=== PATIENT | male | born 1945 | race Caucasian/White ===

== ENCOUNTER 2024-06-17 07:07 | Outpatient (CLI) | payer MEDICARE, SELFPAY ==
--- NOTE | 2024-06-17 | ECG_ITS ---
Test Date: 2024-06-17 08:52:08 Measurements Intervals Thermal Rate: 65 P: 0 SD: 0 QRS: -64 QRSD: 168 T: 97 QT: 448 QTc: 469 Interpretive Statements ELECTRONIC VENTRICULAR PACEMAKER No previous ECG available for comparison Electronically Signed On 06-17-2024 12:59:34 CDT by Srinivasan Black M.D.
--- OUTSIDE RECORDS SUMMARY | 2024-06-17 07:15 | XMS_ITS | Encounter Summary ---
Author Organization [facility] Address [address] [place] [address] Care Team Providers Care Carbon Furnace Operator Name Role Phone Unavailable Primary Care Provider Unavailabl e Encounter Details Date Type Department Care Team (Late st Contact Info) Description 11/22/2017 Lab Requisition [facility] D[facility] Lab [address] [facility], [place] [phone] Erica Gordon MD [address] [facility] [address] [place] [address] Social History Tobacco Use Types Packs/Day Years Used Date Smoking Tobacco: Never Assessed Sex and Gender Information Value Date Recorded Sex Assigned at Not on file Gender Identity Not on file Sexual Orientation Not on file documented as of this encounter Plan of Treatment Not on file documented as of this encounter Procedures Procedure Name Priority Date/Time Associated Diagnosis Comments DERMATOPATH TECHNICAL REPORT Routine 11/21/2017 12:00 AM CDT documented in this encounter Results * DERMATOPATH TECHNICAL REPORT (11/21/2017 12:00 AM CDT) Case Report Dermatopathology Report Case: [id number] Authorizing Provider: Erica Gordon MD Collected: 11/21/2017 12:00 AM Pathologist: Valentina Emery MD Received: 11/22/2017 06:29 AM Specimen: Skin, left nasal ala 8 12:18 PM CDT DERMATOPATHOLOGY LABORATORY Clinical History R/O BCC. Non-healing. Check margins. 8 12:18 PM CDT DERMATOPATHOLOGY LABORATORY Gross Description Specimen A: Received is one formalin filled container labeled with the patient's name and designated left nasal ala. The specimen consists of a shave measuring [id number]. The margin is inked green. Jar 0. [facility] Dermatopathology Laboratory performed the technical component only. 8 12:18 PM CDT DERMATOPATHOLOGY LABORATORY Embedded Images 12:18 PM CDT DERMATOPATHOLOGY LABORATORY DISCLAIMER An external and internal positive and negative controls are appropriate for the histochemical, immunohistochemical and immunofluorescence stain(s) in this case (if any), except where stated explicitly. The performance characteristics of the stain(s) cited in this report were developed and its performance characteristic determined by the Dermatopathology Laboratory at [facility]. These tests need not be, and therefore are not, approved by the [place] Food and Drug Administration. The tests are used for clinical purposes. 8 12:18 PM T DERMATOPATHOLOGY LABORATORY Pathology/Cytolog y TISSUE SPECIMEN FROM SKIN / Unknown 11/21/2017 11/22/2017 6:29 AM CDT Erica Gordon MD LAB - PATHOLOGY/CYT OLOGY ORDERABLES DERMATOPATHOLOGY LABORATORY [facility] - Department of Dermatology [address] [facility] [place] [address], [facility] [phone] documented in this encounter Visit Diagnoses Not on filedocumented in this encounter
--- OUTSIDE RECORDS SUMMARY | 2024-06-17 07:15 | XMS_ITS | Clinical Summary ---
Author Organization [facility] Address [address] [place] [address] Care Team Providers Care Service Director Name Role Phone Pelon Montana MD Primary Care Provider [phone] Allergies Active Allergy Reactions Criticality Noted Date Comments Iodine Anaphylaxis High 02/20/2023 Shellfish Allergy Anaphylaxis High 02/20/2023 Medications fluticasone propionate (FLONASE) 50 MCG/ACT nasal spray SHAKE LIQUID AND USE 1 SPRAY IN EACH NOSTRIL EVERY DAY 01/24/2023 Active rosuvastatin (CRESTOR) 20 MG tablet Take 1 tablet (20 mg total) by mouth nightly at bedtime. Active XARELTO 20 MG Tab tablet TAKE 1 TABLET BY MOUTH DAILY WITH THE EVENING MEAL 12/21/2022 Active loteprednol (LOTEMAX) 0.5 % ophthalmic suspension Place 2 drops into the left eye daily. 10/16/2023 Active acyclovir (ZOVIRAX) 400 MG tablet Take 1 tablet (400 mg total) by mouth daily. 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 02/20/2023 Rhinitis 02/20/2023 Herpes simplex 02/20/2023 Chronic bilateral low back pain without sciatica 02/20/2023 Encounters Date Type Department Care Team Description 05/05/2024 9:40 AM PHLEBOTOMIST Office Visit [facility] Family & Internal Medicine [address] [phone] Pelon Montana MD Follow Up; Atrial Fibrillation; Benign Prostatic Hypertrophy; Hyperlipidemia 05/05/2024 Travel 03/20/2024 Scan [facility] INFO SRVCS Scanned, [facility] from Last 3 Months Immunizations Name Administration Dates Next Due Arexvy Respiratory Syncytial Virus (RSV, adjuvanted) 0.5 mL, PF 02/20/2023 Fluad influenza vaccine, Xavi drivalent (aIIV4), Inactivated, adjuvanted, preservative free, 0.5 mL,IM use 12/18/2019 Fluzone High Dose (IIV, triv alent, 0.5mL) 12/26/2023 Influenza (Generic) 12/31/2014 Influenza Adult (Generic) 01/08/2023,,01/27/2021,2018,01/07/2018,01/10/2017,01/04/2016 Pneumococcal (Pneumovax 23) 04/06/2013, 4 Pneumococcal (Prevnar 13) 01/11/2015 Pneumococcal (Prevnar 20) 01/19/2022 Tdap (Generic) 12/26/2015 Tetanus Toxoid Inj 03/15/2014 Family History Medical History Relation Comments Colon Cancer Brother Liver cancer Father Ulcerative Colitis Father Valve Disease Father Stroke Maternal Aunt 1 Cancer Maternal Aunt 2 Hypertension Mother Stroke Mother Hypertension Sister Relation Status Comments Brother Father Maternal Aunt 1 Maternal Aunt 2 Mother Sister Alive Son Alive Social History Tobacco Use Types Packs/Day Years Used Date Smoking Tobacco: Never Smokeless Tobacco: Never Tobacco Cessation:Counseling Given: Not Answered Alcohol Use Standard Drinks/Week Comments Not Currently 0 (1 standard drink = 0.6 oz pur e alcohol) PHQ-2 Answer Date Recorded Patient Health Questionnaire-2 Score 0 05/05/2024 Sex and Gender Information Value Date Recorded Sex Assigned at Male 05/05/2024 10:21 AM PHLEBOTOMIST Legal Sex Male 1:59 PM CDT Gender Identity Not on file Sexual Orientation Not on file Last Filed Vital Signs Vital Sign Reading Time Taken Comments Blood Pressure 132/70 05/05/2024 10:21 AM PHLEBOTOMIST Pulse 67 05/05/2024 10:21 AM PHLEBOTOMIST Temperature 36.4 C (97.5 F) 05/05/2024 10:21 AM PHLEBOTOMIST Respiratory Rate 16 05/05/2024 10:2 1 AM PHLEBOTOMIST Oxygen Saturation 97% 05/05/2024 10: 21 AM PHLEBOTOMIST Inhaled Oxygen Concentration - - Weight 101.5 kg (223 lb 11.2 oz) 2024 10:21 AM PHLEBOTOMIST Height 185.4 cm (6' 1 ) 05/05/2024 10:2 1 AM PHLEBOTOMIST Body Mass Index 29.51 05/05/2024 10:21 AM PHLEBOTOMIST Plan of Treatment Upcoming Encounters Date Type Department Care Team (Late st Contact Info) Description 06/17/2024 1:20 PM CDT Laboratory Only [facility] Family & Internal [address] [phone] Pelon Montana MD [address] [place] [address] 08/31/2024 7:20 AM CDT Laboratory Only [facility] Internal [address] [phone] Pelon Montana MD [address] [place] [address] 09/08/2024 10:00 AM CDT Office Visit [facility] Family & Internal [address] [phone] Pelon Montana MD [address] [place] [address] Health Maintenance Due Date Last Done Comments Hepatitis C 1963 Zoster Vaccines (1 of 2) 1996 Annual Medicare Wellness Visit 09/19/2011 COVID-19 Vaccine ( season) 2024 01/17/2024, 01/31/2023, 12/06/2021, Additional history exists DTaP, Tdap and Td Vaccines (2 - Td or Tdap) 12/25/2025 12/26/2015, 03/15/2014 Pneumococcal Vaccine: 65+ Years Completed 01/19/2022, 01/11/2015, 04/06/2013, Additional history exists RSV Immunization or 60+ Years Completed 02/20/2023 Influenza Adult Completed 12/26/2023, 12/23, 01/07/2022, Additional history exists PHQ-2 (Physician [place]) Completed 05/05/2024 Meningococcal B Vaccine Aged Out No l onger eligible based on patient's age to complete this topic Meningococcal Vaccine Aged Out No olga marli eligible based on patient's age to complete this topic RSV Immunizations Under 20 Months Aged Out No longer eligible based on patient's age to complete this topic Insurance [place], [place] [id number] [place] [address] GROUP MEDICARE Care Teams Service Director Relationship Specialty Start Date End Date Pelon Montana MD [address] [place] [phone] PCP - General INTERNAL MEDICINE 02/20/23
--- OUTSIDE RECORDS SUMMARY | 2024-06-17 07:15 | XMS_ITS | Continuity of Care Document ---
Author Organization [facility] Address [address] [facility] [address] [place] [address] Phone Care Team Providers Care Linux Programmer Name Role Phone Skinny Blevins MD Unavailable Unavailable Procedures Procedure Date Office/outpatient visit,[facility] 2005 Advance Directives Directive Yes / No Effective Date File Name No Information Encounters Encounter Description Practice Location Reason(s) For Visit Diagnoses Date Provider Providers Copied on Encounter Office/outpat ient visit,[facility], [address], [id number], tel:[phone] [facility] No Information [address] [facility] [address], [place], [place], [id number] , . tel: [phone] Family History Family Member Type Diagnosis Age At Onset No Information Payers Payer name Insurance type Covered libertarian ID Authoriza tion(s) [facility] [id number] Social History Type Description Quantity Date Captured Comments Sex Male Smoking Status No Information Chief Complaint And Reason For Visit No Information Reason For Referral Reason For Referral No Information History Of Present Illness Encounter Date Complaint History Of Prese nt Illness No Information Functional Status Date Functional Assessmen t No Information Instructions Date Instruction Additional Infor mation No Information Assessments Type Assessment Date No Information Patient Care Teams Name Effective Dates (start - stop) Status Members No Information
--- OUTSIDE RECORDS SUMMARY | 2024-06-17 07:15 | XMS_ITS | Encounter Summary ---
Author Organization [facility] Address [address] [facility] [place] [address] Care Team Providers Care Veterinary Poultry Inspector Name Role Phone Unavailable Primary Care Provider Unavailabl e Encounter Details Date Type Department Care Team (Late st Contact Info) Description 10/29/2019 Lab Requisition [facility] DermPath Lab [address] [facility] [place] [phone] Romeo Orr MD [address] [place] [address] Social History Tobacco Use Types Packs/Day Years Used Date Smoking Tobacco: Never Assessed Sex and Gender Information Value Date Recorded Sex Assigned at Not on file Gender Identity Not on file Sexual Orientation Not on file documented as of this encounter Plan of Treatment Not on file documented as of this encounter Procedures Procedure Name Priority Date/Time Associated Diagnosis Comments DERMATOPATHOLOGY Routine 10/28/2019 12:0 0 AM CDT documented in this encounter Results * DERMATOPATHOLOGY (10/28/2019 12:00 AM CDT) Case Report Dermatopathology Report Case: [id number] Authorizing Provider: Romeo Orr MD Collected: 10/28/2019 12:00 AM Ordering Location: [facility] DermPath Lab Received: 10/29/2019 12:23 PM Pathologist: Papito Martinez MD Specimens: A) - Skin, right styloid process B) - Skin, left ext FA C) - Skin, left distal ulnar FA 0 2:41 PM CDT DERMATOPATHOLOGY LABORATORY Amended Report General Clerical Error 0 2:41 PM CDT DERMATOPATHOLOGY LABORATORY Final Diagnosis Specimen A. SKIN, right styloid process: SQUAMOUS CELL CARCINOMA, WELL DIFFERENTIATED (C44.42) Specimen B. 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 C: R/O BCC, SCC. 0 2:41 PM T DERMATOPATHOLOGY LABORATORY Gross Description Specimen A: Received is one formalin filled container labeled with the patient's name and designated right styloid process. The specimen consists of a shave biopsy measuring [id number]. Jar 0. Specimen B: Received is one formalin filled container labeled with the patient's name and designated left ext FA. The specimen consists of a shave biopsy measuring [id number]. Jar 0. Specimen C: Received is one formalin filled container labeled with the patient's name and designated left distal ulnar FA. The specimen consists of a shave biopsy measuring [id number]. Jar 0. 0 2:41 PM T DERMATOPATHOLOGY LABORATORY Microscopic Description Specimen A. SKIN, right styloid process: Arising in the epidermis and extending into the dermis there are irregularly shaped aggregates of keratinocytes showing evidence of premature cornification. Specimen B. SKIN, left ext FA: There is a dome-shaped portion of skin with psoriasiform epidermal hyperplasia, compact hyperkeratosis, and fibrosis of the papillary dermis associated with a superficial perivascular lymphohistiocytic infiltrate. Additional deeper sections were obtained and reviewed. Specimen C. SKIN, left distal ulnar FA: There is a cup-shaped lesion with central hyperkeratosis with elements of parakeratosis. The epithelial cells making up the bro of the cup show abundant eosinophilic cytoplasm. There is immaturity of the keratinocytes in the outermost layers of this epithelium, forming nests which are highlighted on a pancytokeratin. In the dermis there is marked fibroplasia with a mixed inflammatory infiltrate containing eosinophils. 0 2:41 PM T DERMATOPATHOLOGY LABORATORY Disclaimer An external and internal positive and negative controls are appropriate for the histochemical, immunohistochemical and immunofluorescence stain(s) in this case (if any), except where stated explicitly. The performance characteristics of the stain(s) cited in this report were developed and its performance characteristic determined by the Dermatopathology Laboratory at [facility], directed by Dr. Jj Martinez. These tests need not be, and therefore are not, approved by the [place] Food and Drug Administration. The tests are used for clinical purposes. Billing Codes Specimen Charges Stain Charges 23768 51508 50390 1 1 1 95531 1 0 2:41 PM CDT DERMATOPATHOLOGY LABORATORY Embedded Images 0 2:41 PM CDT DERMATOPATHOLOGY LABORATORY Pathology/Cytology TISSUE SPECIMEN FROM SKIN / Unknown 10/28/2019 10/29/2019 12:23 PM CDT Miscellaneous samples (specimen) TISSUE SPECIMEN FROM SKIN / Unknown 10/28/2019 10/29/2019 12:23 PM CDT Miscellaneous samples (specimen) TISSUE SPECIMEN FROM SKIN / Unknown 10/28/2019 10/29/2019 12:23 PM CDT Romeo Orr MD LAB - PATHOLOGY/CYTO LOGY ORDERABLES DERMATOPATHOLOGY LABORATORY [facility] - Department of Dermatology [facility]/[address] [phone] documented in this encounter Visit Diagnoses Not on filedocumented in this encounter
--- OUTSIDE RECORDS SUMMARY | 2024-06-17 07:15 | XMS_ITS | Referral Summary ---
Author Organization [facility] Address [address] [place] [address] Care Team Providers Care Thin Film Technician Name Role Phone Pelon Montana MD Primary Care Provider [phone] Encounters Date Type Department Care Team Description 04/27/2024 3:20 PM [facility] Telemedicine [place] for Advanced Medicine ([facility]) - [facility] Urology [address] [place] [address] Advanced Medicine 11th [place] [address] [place] [address] Mery Kearney MD Elevated PSA (Primary Dx); Prostate cancer (HCC) 04/06/2024 9:40 AM HOST/HOSTESS HEAD Office Visit [facility] Surgery [facility] [facility] [address] [place] [phone] Elevated PSA (Primary Dx) from Last 3 Months Allergies Active Allergy Reactions Criticality Noted Date Comments Adhesive Rash Medium Iodine Anaphylaxis High Morphine Headache Low Shellfish Containing Products Anaphylaxis High Medications HYDROcodone-aceta minophen (NORCO) 10-325 mg per tabletIndications :Pain TAKE 1 TO 2 TABLETS EVERY 4 TO 6 HOURS NEEDED FOR PAIN. 7 Active XARELTO 20 mg tablet TK 1 T PO D WITH THE EVENING MEAL 3 8 Active rosuvastatin (CRESTOR) 20 mg tabletIndications :hyperlipidemia Take 1 tablet (20 mg total) by mouth nightly Active valACYclovir (VALTREX) 500 mg tablet Take 1 tablet (500 mg total) by mouth 2 (two) times a day Active mirabegron ER (MYRBETRIQ) 25 mg tablet extended release 24 hrIndications:Dustin dder Hyperactivity Take 1 tablet (25 mg total) by mouth daily 30 tablet 11 3 Active Additional Information Patient not taking.Reported on 06/27/2023 vit C,Y-Kz-cqnza-lute in-zeaxan 250-90-40-1 mg capsule Take 1 capsule by mouth daily Active trospium XR (SANCTURA XR) 60 mg capsule,extended release 24hr Take 1 capsule (60 mg total) by mouth daily before breakfast 90 capsule 3 4 Active Active Problems Problem Noted Date Diagnosed Date Paroxysmal atrial fibrillation 06/28/2023 Elevated PSA 03/08/2023 Arthralgia of hip 06/20/2016 Arthralgia of shoulder 01/17/2015 Social History Tobacco Use Types Packs/Day Years Used Date Smoking Tobacco: Never Smokeless Tobacco: Never Tobacco Cessation:Counseling Given: Not Answered Alcohol Use Standard Drinks/Week Comments Never 0 (1 standard drink = 0.6 oz pur e alcohol) AUDIT-C Answer Date Recorded Q1: How often do you have a drink containing alc ohol? Never 04/16/2023 Average Number of Drinks Not on file 024 Q3: How often do you have si x or more drinks on one occasion? Never 04/16/2023 Personal Safety Answer Date Recorded Have you ever been in or are you currently in a harmful physical or emotional relationship or is someone making you feel afraid or unsafe? Denies 04/16/2023 Sex and Gender Information Value Date Recorded Sex Assigned at Not on file Legal Sex Male 1:27 PM HOST/HOSTESS HEAD Gender Identity Not on file Sexual Orientation Not on file Occupation Industry Job Start Date Job End Date [employer] Not on file Not on file Not on filippo e Last Filed Vital Signs Vital Sign Reading Time Taken Comments Blood Pressure 123/87 04/16/2023 9:35 AM HOST/HOSTESS HEAD Pulse 61 04/16/2023 9:35 AM HOST/HOSTESS HEAD Temperature 35.9 C (96.7 F) 04/16/2023 9:05 AM HOST/HOSTESS HEAD Respiratory Rate 18 04/16/2023 9:35 AM HOST/HOSTESS HEAD Oxygen Saturation 96% 04/16/2023 9:35 AM HOST/HOSTESS HEAD Inhaled Oxygen Concentration - - Weight 98.9 kg (218 lb) 04/01/2023 10:00 AM HOST/HOSTESS HEAD Height 185.4 cm (6' 1 ) 04/01/2023 10:00 AM HOST/HOSTESS HEAD Body Mass Index 28.76 04/01/2023 10:00 AM HOST/HOSTESS HEAD Plan of Treatment Not on file Medical Devices Implanted Type Area Senior Pharmacy Technician Device Identifier Shelf Expiration Date Model / Serial / Lot Ji Ra Lead [id number]/ 31/2008 Implanted: (Quantity not on file) Lead [employer] [id number] / / Ji Rv Lead [id number]/ 31/2008 Implanted: (Quantity not on file) Lead [employer] [id number] / / Medtronic Pm [id number] Implanted:Qty : 1 on 07/25/2015 Pacemaker Chest Wall [employer] Cardiac Rhythm Mgmt [id number] / / Insurance UHC MEDICARE ADVANTAGE UHC MEDICARE ADVANTAGE UHC MEDICARE ADVANTAGE Advance Directives For more information, please contact: [phone] Documents on File Type Date Recorded Patient Traffic Police Officer Expl anation Power of Underwriting Operations Manager 04/16/2023 5:38 AM Care Teams Thin Film Technician Relationship Specialty Start Date End Date Pelon Montana MD [address] [place] [id number] PCP - General Internal Medicine 04/01/23
--- OUTSIDE RECORDS SUMMARY | 2024-06-17 07:15 | XMS_ITS | CONTINUITY OF CARE DOCUMENT ---
Author Name kiran, kiran Address Unknown Organization [facility] Address [address] [place] [address] Phone [phone] Care Team Providers Care Truer Pinion And Wheel Name Role Phone Carlos HILTON, Poly Unavailable [phone] GUERITA HILTON, SITA Unavailable GUERITA HILTON, SITA Unavailable [phone] PROBLEMS Condition Status Date Provider Notes Tricuspid regurgitation, mild active Nella Lagos S/P dc pm gen change - Medtronic active Briana Pandyaara PACEMAKER, PERMANENT-03/01 S T. JOSELINE DC,s/p battery changeto medtronic 08/07 completed - Poly Rahman MD HTN-02/03 ECHO AFIB EF 55 completed - Poly vega MD CAD-05/01 NUC NEG completed - Poly Rahman MD CAD 20% L main , mild ectasi a of rca 06/2021 active Poly Rahman MD Hyperlipidemia- active Poly Rhaman MD Mitral regurgitation, mild--echo ef NL, 05/2021 active Poly Rahman MD Obesity active Poly Rahman MD Atrial fibrillation completed - Poyl Andres Lower extremity edema active Poly Andres S/P dc pm gen change - Medtronic completed - Poly Rahman MD Family History of Hypertension: completed - To yasmeen Rahman MD Family History of CVA or Stroke: completed - Poly Rahman MD HTN-06/29 SARAHI CARDIOVERSION completed - Poly Rahman MD Chronic AFIB INTOLERANT OF SOTALOL, on Xarelto active Poly Rahman MD ENCOUNTERS Date Type Provider Location Encounter Diag nosis - In-person encounter Office Visit Poly Rahman MD [facility] - In-person encounter Office Visit Poly Rahman MD [facility] Hyperlipidemia-Atria l fibrillationLower extremity edema - In-person encounter Office Visit Poly Rahman MD [facility] CAD 20% L main , mil d ectasia of rca 06/2021Mitral regurgitation, mild--echo ef NL, 05/2021 - In-person encounter Office Visit Poly Rahman MD [facility] - In-person encounter Office Visit Poly Rahman MD [facility] - In-person encounter Office Visit Poly Rahman MD [facility] CAD 20% L main , mil d ectasia of rca 06/2021 - In-person encounter Office Visit Poly Rahman MD [facility] - In-person encounter Office Visit Poly Rahman MD [facility] Office CAD 20% L main , mil d ectasia of rca 06/2021Hyperlipidemia-Mi tral regurgitation, mild--echo ef NL, 05/2021 - In-person encounter Office Visit Poly Rahman MD [facility] - In-person encounter Office Visit Poly Rahman MD [facility] - In-person encounter Office Visit Poly Rahman MD [facility] PACEMAKER, PERMANENT-03/01 [facility]. JOSELINE DC,s/p battery changeto medtronic 5/16 - In-person encounter Office Visit Poly Rahman MD [facility] Mitral regurgitation , mild--echo ef NL, 2Obesity - In-person encounter Office Visit Poly Rahman MD [facility] Chronic AFIB INTOLER ANT OF SOTALOL, on Xarelto - In-person encounter Office Visit Poly Rahman MD [facility] Chronic AFIB INTOLER ANT OF SOTALOL, on Xarelto - In-person encounter Office Visit Poly Rahman MD [facility] Office CAD 20% L main , mil d ectasia of rca 06/2021Hyperlipidemia- - In-person encounter Office Visit Poly Rahman MD [facility] - In-person encounter Office Visit Poly Rahman MD [facility] - In-person encounter Office Visit Poly Rahman MD [facility] PACEMAKER, PERMANENT-03/01 ST. JOSELINE DC,s/p battery changeto medtronic 08/07HTN-02/03 ECHO AFIB EF 55HTN-06/29 SARAHI CARDIOVERSIONCAD-05/01 NUC NEGS/P dc pm gen change - Medtronic - In-person encounter Office Visit Poly Rahman MD [facility] PACEMAKER, PERMANENT-03/01 ST. JOSELINE DC,s/p battery changeto medtronic 08/07 - In-person encounter Office Visit Poly Rahman MD [facility] Family History of CV A or Stroke:Family History of Hypertension: - In-person encounter Office Visit Poly Rahman MD [facility] - In-person encounter Office Visit Poly Rahman MD [facility] - In-person encounter Office Visit Poly Rahman MD [facility] - In-person encounter Office Visit Poly Rahman MD [facility] - In-person encounter Office Visit Poly Rahman MD [facility] - In-person encounter Office Visit Poly Rahman MD [facility] - In-person encounter Office Visit Poly Rahman MD [facility] - In-person encounter Office Visit Poly Rahman MD [facility] Chronic AFIB INTOLER ANT OF SOTALOL, on Xarelto - In-person encounter Office Visit Home Rodriguez MD [facility] - In-person encounter Office Visit Poly Rahman MD [facility] Chronic AFIB INTOLER ANT OF SOTALOL, on Xarelto VITAL SIGNS Date Observation Value Provider Body Mass Index (Ratio) 31.24 kg/m2 Ashish Rahman MD blood pressure, diastolic 70 mm[Hg] Ri az [facility] blood pressure, systolic 110 mm[Hg] Marguerite hansa [facility] weight E&M 219 [lb_av] [facility] oxygen saturation, oximetry 98 % [facility] pulse rate 89 /min [facility] Body Mass Index (Ratio) 30.81 kg/m2 Ashish Rahman MD blood pressure, diastolic 88 mm[Hg] Li nkLogic blood pressure, systolic 145 mm[Hg] Tamera kLogic blood pressure, cuff size regular Ja rret blood pressure, diastolic 86 mm[Hg] Ja rret blood pressure, systolic 128 mm[Hg] Jar ret pulse rate 64 /min Arnaldo y oxygen saturation, oximetry 98 % Arnaldo respiratory rate E&M 14 /min Arnaldo weight E&M 216 [lb_av] Arnaldo Padilla y height E&M 70.2 [in_i] Arnaldo Padilla y Body Mass Index (Ratio) 30.39 kg/m2 Ashish Rahman MD weight E&M 213 [lb_av] Shanthi [place] blood pressure, cuff size regular Fa [facility] blood pressure, diastolic 79 mm[Hg] [facility] blood pressure, systolic 134 mm[Hg] [facility], [facility] 99 % [facility] respiratory rate E&M 15 /min Shanthi Cobos [facility] pulse rate 76 /min [facility] height E&M 70.2 [in_i] [facility] Body Mass Index (Ratio) 30.67 kg/m2 Ashish Rahman MD blood pressure, diastolic -1 mm[Hg] Li nkLogic blood pressure, systolic 148 mm[Hg] Tamera kLoggavin blood pressure, diastolic 88 mm[Hg] St acleyla Du blood pressure, systolic 148 mm[Hg] Sta charis Du oxygen saturation, oximetry 99 % Juani Florian pulse rate 75 /min Juani Florian respiratory rate E&M 18 /min Juani D yara weight E&M 215 [lb_av] Juani Florian height E&M 70.2 [in_i] Juani Florian Body Mass Index (Ratio) 32.21 kg/m2 Ashish Rahman MD blood pressure, diastolic 87 mm[Hg] St acy Florian blood pressure, systolic 153 mm[Hg] Sta cy Florian oxygen saturation, oximetry 98 % Juani Florian pulse rate 86 /min Juani Florian respiratory rate E&M 16 /min Juani D yara weight E&M 225.8 [lb_av] Juani Florian height E&M 70.2 [in_i] Juani Florian Body Mass Index (Ratio) 32.24 kg/m2 Ashish Rahman MD blood pressure, diastolic 83 mm[Hg] Ca therine Tigre blood pressure, systolic 141 mm[Hg] Cat herine [place] oxygen saturation, oximetry 85 % Rachelle Tigre respiratory rate E&M 16 /min Catheri ne [place] pulse rate 70 /min Rachelle [place] weight E&M 226 [lb_av] Rachelle [place] blood pressure, cuff size regular Ca therine Tigre height E&M 70.2 [in_i] Rachelle Tigre Body Mass Index (Ratio) 31.67 kg/m2 Ashish Rahman MD blood pressure, diastolic 80 mm[Hg] Ch astity Vicky blood pressure, systolic 132 mm[Hg] Cecelia stity Vicky oxygen saturation, oximetry 98 % Chastity Vicky pulse rate 87 /min Chastity Vicky weight E&M 222 [lb_av] Chastity Vicky respiratory rate E&M 16 /min Chastit y Vicky height E&M 70.2 [in_i] Chastity Vicky Body Mass Index (Ratio) 33.24 kg/m2 Ashish Rahman MD blood pressure, cuff size large Ke rri Gruenenfeldtiny blood pressure, diastolic 84 mm[Hg] Ke rri Gruenenfelder blood pressure, systolic 142 mm[Hg] Roberta Amado oxygen saturation, oximetry 98 % Samantha Ingris respiratory rate E&M 16 /min Samantha G ruenenfelder pulse rate 74 /min Samantha Mumtaznenfe er weight E&M 233 [lb_av] Samantha Gruenenfe er height E&M 70.2 [in_i] Samantha Mumtaznenfe [facility] Body Mass Index (Ratio) 32.24 kg/m2 Ashish Rahman MD blood pressure, cuff size large Ke rri Gruenenfblayne blood pressure, diastolic 86 mm[Hg] Ke rri Gruenenfeld blood pressure, systolic 130 mm[Hg] Roberta ri Gruenenfelder oxygen saturation, oximetry 98 % Samantha Princealonsonenfdariuser respiratory rate E&M 16 /min Samantha Robert heathenenfdariuser pulse rate 85 /min Samantha Mumtaznenfe [facility] weight E&M 226 [lb_av] Samantha Mumtaznenfe [facility] height E&M 70.2 [in_i] Samantha Mumtaznenfe [facility] Body Mass Index (Ratio) 30.96 kg/m2 Ashish Rahman MD blood pressure, diastolic 80 mm[Hg] To [facility] blood pressure, systolic 138 mm[Hg] Ton [facility] oxygen saturation, oximetry 98 % [facility] Cardenas respiratory rate E&M 16 /min Tonsha Cardenas pulse rate 90 /min Tons Cardenas weight E&M 217 [lb_av] Tonsha Cardenas height E&M 70.2 [in_i] Tonsha Cardenas Body Mass Index (Ratio) 32.52 kg/m2 Ashish Rahman MD blood pressure, cuff size large Cr ady Liz blood pressure, diastolic 80 mm[Hg] Cr ady Liz blood pressure, systolic 120 mm[Hg] Cry zuleyma Liz oxygen saturation, oximetry 98 % Zarina Liz respiratory rate E&M 17 /min Zarina Liz pulse rate 82 /min Zarina pabon weight E&M 228 [lb_av] Zarina pabon height E&M 70.2 [in_i] Zarina pabon Body Mass Index (Ratio) 34.09 kg/m2 Ashish Rahman MD blood pressure, diastolic 84 mm[Hg] Marc muir O'Jose blood pressure, systolic 122 mm[Hg] Shona blevins [place] oxygen saturation, oximetry 98 % Ellie O'Jose respiratory rate E&M 16 /min Ellie O'Jose pulse rate 90 /min Ellie O'Jose weight E&M 239 [lb_av] [facility] O'Jose height E&M 70.2 [in_i] [facility] O'Jose Body Mass Index (Ratio) 33.38 kg/m2 Ashish Rahman MD blood pressure, cuff size regular Ke junior Amado blood pressure, diastolic 80 mm[Hg] Ke rrabelino Amado blood pressure, systolic 130 mm[Hg] Roberta Amado oxygen saturation, oximetry 98 % Samantha Amado respiratory rate E&M 81 /min Samantha collins pulse rate 81 /min Samantha melo weight E&M 234 [lb_av] Samantha Brady lder height E&M 70.2 [in_i] Samantha Brady er Body Mass Index (Ratio) 32.90 kg/m2 Ashish Rahman MD blood pressure, diastolic 85 mm[Hg] Marc Plascencia blood pressure, systolic 150 mm[Hg] Shona Plascencia oxygen saturation, oximetry 98 % Navjot Plascencia respiratory rate E&M 18 /min Haroon Plascencia pulse rate 82 /min Navjot palomo weight E&M 230.6 [lb_av] Navjot deleon height E&M 70.2 [in_i] Navjot palomo Body Mass Index (Ratio) 32.38 kg/m2 Ashish Rahman MD blood pressure, diastolic 76 mm[Hg] Moshe schreiber [place] blood pressure, systolic 122 mm[Hg] Clarice patterson [place] blood pressure, cuff size regular Moshe Carranzaby oxygen saturation, oximetry 99 % Lorena Yarbrough pulse rate 73 /min Lorena Carranzaby respiratory rate E&M 17 /min Lorena Carranzaby weight E&M 227 [lb_av] Lorena Carranzaby height E&M 70.2 [in_i] Lorena Carranzaby Body Mass Index (Ratio) 32.52 kg/m2 Ashish Rahman MD blood pressure, cuff size regular Mariela Willis blood pressure, diastolic 90 mm[Hg] Mariela Willis blood pressure, systolic 140 mm[Hg] Cassandra Willis oxygen saturation, oximetry 98 % Hellen Willis respiratory rate E&M 16 /min Hellen Willis pulse rate 73 /min Hellen Willis weight E&M 228 [lb_av] Hellen Willis height E&M 70.2 [in_i] Hellen Willis Body Mass Index (Ratio) 32.67 kg/m2 Ashish Rahman MD blood pressure, cuff size regular Md yuliana Gonzales blood pressure, diastolic 93 mm[Hg] Md yuliana Christian blood pressure, systolic 135 mm[Hg] Pooja goyal Gonzales oxygen saturation, oximetry 97 % Marcia Gonzales respiratory rate E&M 16 /min Marcia Gonzales weight E&M 229 [lb_av] Marcia Gonzales blood pressure, resting No Jessy roberts Gonzales height E&M 70.2 [in_i] Marcia Gonzales blood pressure, diastolic 91 mm[Hg] Moshe Yarbrough blood pressure, systolic 142 mm[Hg] Clarice Carranzaby pulse rate 92 /min Lorena Yarbrough oxygen saturation, oximetry 99 % Lorena Yarbrough respiratory rate E&M 18 /min Lorena Carranzaby Body Mass Index (Ratio) 32.38 kg/m2 David Carranzaby weight E&M 227.0 [lb_av] Lorena Yarbrough blood pressure, diastolic 91 mm[Hg] Marc Plascencia blood pressure, systolic 140 mm[Hg] Shona Villasenor Plascencia pulse rate 76 /min Navjot Richard [place] oxygen saturation, oximetry 96 % Navjot Plascencia respiratory rate E&M 16 /min Haroon yadira Plascencia Body Mass Index (Ratio) 30.81 kg/m2 Briana King Plascencia weight E&M 216 [lb_av] Navjot Richard [place] Body Mass Index (Ratio) 32.52 kg/m2 Anea molina Davy blood pressure, diastolic 90 mm[Hg] An eatris Davy blood pressure, systolic 154 mm[Hg] Ane atris Brown pulse rate 87 /min Aneatris Brown oxygen saturation, oximetry 96 % Aneatris Brown respiratory rate E&M 17 /min Aneatri s Brown weight E&M 228 [lb_av] Aneatris Brown Body Mass Index (Ratio) 32.07 kg/m2 Jessy roberts Gonzales blood pressure, diastolic 96 mm[Hg] Me bridges Gonzales blood pressure, systolic 150 mm[Hg] Pooja goyal Gonzales pulse rate 74 /min Marcia Gonzales oxygen saturation, oximetry 97 % Marcia Gonzales respiratory rate E&M 14 /min Marcia Gonzales weight E&M 224 [lb_av] Marcia Gonzales blood pressure, diastolic 94 mm[Hg] Yaw Ji RN blood pressure, systolic 158 mm[Hg] Nicolas Ji RN pulse rate 87 /min Nicolas Ji RN oxygen saturation, oximetry 98 % Nicolas Ji RN respiratory rate E&M 15 /min Nicolas salcedo RN Body Mass Index (Ratio) 31.64 kg/m2 Nicolas Ji RN weight E&M 221 [lb_av] Nicolas Ji RN blood pressure, diastolic 95 mm[Hg] Yaw Ji RN blood pressure, systolic 157 mm[Hg] Nicolas Ji RN pulse rate 86 /min Nicolas Ji RN oxygen saturation, oximetry 99 % Nicolas Ji RN respiratory rate E&M 16 /min Nicolas salcedo RN weight E&M 232 [lb_av] Nicolas Ji RN height E&M 70.2 [in_i] Nicolas Ji RN blood pressure, diastolic 72 mm[Hg] Yaw Ji RN blood pressure, systolic 130 mm[Hg] Nicolas Ji RN pulse rate 80 /min Nicolas Ji RN oxygen saturation, oximetry 96 % Nicolas Ji RN respiratory rate E&M 16 /min Nicolas salcedo RN weight E&M 233 [lb_av] Nicolas Ji RN blood pressure, diastolic 76 mm[Hg] To yasmeen Rahman MD blood pressure, systolic 124 mm[Hg] Ton lesly Rahman MD pulse rate 76 /min Poly Rahman MD respiratory rate E&M 16 /min Poly Rahman MD weight E&M 233 [lb_av] Poly Rahman MD blood pressure, diastolic, left arm 83 mm [Hg] Jesus [place] blood pressure, systolic, left arm 133 mm [Hg] Jesus [place] blood pressure, diastolic 83 mm[Hg] Shannan seph [place] blood pressure, systolic 133 mm[Hg] Bj eph [place] pulse rate 71 /min Jesus [place] oxygen saturation, oximetry 98 % Jesus [place] respiratory rate E&M 16 /min Jesus [place] weight E&M 232 [lb_av] Jesus [place] blood pressure, diastolic 92 mm[Hg] Shannan seph [place] blood pressure, systolic 136 mm[Hg] Bj eph [place] pulse rate 16 /min Jessu [place] oxygen saturation, oximetry 98 % Jesus [place] respiratory rate E&M 16 /min Jesus [place] blood pressure, diastolic 70 mm[Hg] Nathaly Oropeza MA blood pressure, systolic 112 mm[Hg] Becca Oropeza MA pulse rate 82 /min Faiza Oropeza MA oxygen saturation, oximetry 98 % Faiza Oropeza MA respiratory rate E&M 16 /min Faiza Oropeza MA weight E&M 244 [lb_av] Faiza Oropeza MA blood pressure, diastolic 83 mm[Hg] Yaw Ji RN blood pressure, systolic 123 mm[Hg] Nicolas Ji RN pulse rate 57 /min Nicolas Ji RN oxygen saturation, oximetry 98 % Nicolas Ji RN respiratory rate E&M 18 /min Nicolas salcedo RN weight E&M 236 [lb_av] Nicolas Ji RN blood pressure, diastolic 92 mm[Hg] Yaw linden Ji [place] blood pressure, systolic 134 mm[Hg] Nicolas Rodascm [place] pulse rate 86 /min Nicolas Ji [place] oxygen saturation, oximetry 99 % Nicolas Ji [place] respiratory rate E&M 18 /min Nicolas Beronica liamcm [place] weight E&M 235 [lb_av] Nicolas Ji RN ALLERGIES Allergy Name Onset Date Reaction Criticality Status IODINE Low Criticality active SHELL FISH Low Criticality active RESULTS Date Observation Value Provider Reference Range Interpretation Location LDL cholesterol, serum 55 mg/dL Poly Rahman MD triglyceride, serum, fasting 131 mg/dL [facility] [place] HDL cholesterol, serum 38 mg/dL [facility] [place] LDL cholesterol, serum 143 mg/dL [facility] [place] cholesterol, serum 207 mg/dL [facility] [place] thyroid stimulating hormone, serum 3.010 u[IU]/mL [facility] [place] prostate specific antigen 1.62 ng/mL [facility] [place] thyroid stimulating hormone, serum 3.010 u[IU]/mL [facility] [place] triglyceride, serum, fasting 168 mg/dL [facility] HDL cholesterol, serum 33 mg/dL [facility] [place] LDL cholesterol, serum 147 mg/dL [facility] [place] cholesterol, serum 230 mg/dL [facility] [place] alanine aminotransferase (SGPT), serum 32 1/L [facility] [place] aspartate aminotransferase (SGOT), serum 21 1/L [facility] [place] creatinine, serum 1.09 mg/dL [facility] [place] urea nitrogen, blood 23 mg/dL [facility] carbon dioxide, serum, total 26 mmol/L [facility] chloride, serum 105 mmol/L [facility] potassium, serum 4.6 mmol/L [facility] [place] sodium, serum 141 mmol/L [facility] platelet count 178 10*3/uL [facility] hematocrit, blood 44.4 % [facility] hemoglobin, blood 14.9 g/dL [facility] erythrocyte (RBC) count 4.98 10*6/mm3 [facility] leukocyte count, blood 4.6 10*3/mm3 [facility] red blood cell distribution width 14.9 % [facility] hematocrit, blood 44.0 % [facility] hemoglobin, blood 14.5 g/dL [facility] erythrocyte (RBC) count 14.9 10*6/mm3 [facility] leukocyte count, blood 5.3 10*3/mm3 [facility] creatinine, serum 1.13 mg/dL [facility] urea nitrogen, blood 22 mg/dL [facility] carbon dioxide, serum, total 27 mmol/L [facility] chloride, serum 106 mmol/L [facility] potassium, serum 4.3 mmol/L [facility] sodium, serum 139 mmol/L [facility] prothrombin time (patient) 10.2 s [facility] international normalized ratio (INR) 1.0 [facility] HISTORY OF MEDICATION USE Medication Status Instructions Dates Provider Indications Com ments acyclovir 400 mg tablet active Johny Dixon rosuvastatin 20 mg tablet active TAKE 1 TABLET BY MOUTH DAILY AT BEDTIME [facility] fluticasone propionate 50 mcg/actuation spray,suspensio n active Johny Dixon Myrbetriq 25 mg tablet extended release 24 hr completed - Johny Dixon rosuvastatin 20 mg tablet completed Take 1 tablet by mouth at bedtime TAKE 1 TABLET BY MOUTH DAILY AT BEDTIME - [facility] Lotemax 0.5% ointment completed - Johny Dixon valacyclovir 500 mg tablet completed - Johny Dixon Xarelto 20 mg tablet active TAKE 1 TABLET BY MOUTH DAILY WITH THE EVENING MEAL Jessica Petersen rosuvastatin 20 mg tablet completed TAKE 1 TABLET BY MOUTH DAILY AT BEDTIME - Ana Barlow INDOMETHACIN CAPSULE completed as needed - Johny Dixon Xarelto 20 mg tablet completed Take 1 tablet by mouth every night - Johny Dixon CLOPIDOGREL BISULFATE 75 MG ORAL TABLET completed TK 1 T PO D - Poly Rahman MD #30, 30 days supply, Prescribed by POLY RAHMAN, Filled 10/01/2016 rosuvastatin 20 mg tablet completed Take 1 tablet by mouth every night - Gavino Newton INDOMETHACIN ER 75 MG ORAL CAPSULE EXTENDED RELEASE completed TK 1 C PO BID - Poly Rahman MD #60, 30 days supply, Prescribed by KELTON CR, Filled 10/16/2016 SIMVASTATIN 20 MG ORAL TABLET completed ONE TAB. DAILY - Marcia Gonzales LYRICA 50 MG ORAL CAPSULE completed sig 1 po daily - Poly Rahman MD AMBIEN 5 MG ORAL TABLET completed ONE TAB. AT BEDTIME - Nicolas Ji RN SOTALOL HCL 80 MG ORAL TABLET completed TWICE DAILY - Poly Rahman MD ASPIRIN 81 MG ORAL TABLET completed ONE TAB. DAILY - Poly Rahman MD SOCIAL HISTORY Date Observation Value Provider drug use no Johny Dixon alcohol use no Johny Dixon passive cigarette sm serena exposure no Johny Dixon smoking status Never smoker Johny Dixon drug use no Johny Dixon alcohol use no Johny Dixon passive cigarette sm serena exposure no Johny Dixon smoking status Never smoker Johny Dixon social history E&M Marital Statu s: L sina with family/friends E thnicity: Smoking History: P julian has never smoked. Johny Dixon smoking status Never smoker Shanthi Serrano social history reviewed E&M revi ewed - no changes required Johny Dixon social history E&M Marital Statu s: L sina with family/friends E thnicity: Smoking History: P julian has never smoked. Poly Rahman MD social history reviewed E&M revi ewed - no changes required Poly Rahman MD seatbelt usage 100 % Juanicharis Du exercise type walking/yard work Juani Aman is physical exercise, f requency, days per week yes Juanicharis Du caffeine use, averag e drinks per day yes Juanicharis Du passive cigarette sm serena exposure no Juani Florian smoking status Never smoker Juanicharis Du social history E&M Marital Statu s: L sina with family/friends E thnicity: Smoking History: Maggie jordan has never smoked. Johny Dixon social history reviewed E&M revi ewed - no changes required Johny Dixon seatbelt usage 100 % Juanicharis Du exercise type walking/yard work Juani Aman is physical exercise, f requency, days per week yes Juani Florian caffeine use, averag e drinks per day yes Juani Florian passive cigarette sm serena exposure no Juanicharis Du smoking status Never smoker Juanicharis Du seatbelt usage 100 % Rachelle Ilsa s exercise type walking/yard work Rachelle Tigre physical exercise, f requency, days per week yes Rachelle Tigre caffeine use, averag e drinks per day yes Rachelle [place] passive cigarette sm serena exposure no Rachelle [place] smoking status Never smoker Rachelle Ilsa s social history reviewed E&M revi ewed - no changes required Poly Rahman MD seatbelt usage 100 % Chastity Hogu e exercise type walking/yard work Chastity Vicky physical exercise, f requency, days per week yes Chastity Vicky caffeine use, averag e drinks per day yes Chastity Vicky passive cigarette sm serena exposure no Chastity Vicky smoking status Never smoker Chastity Hogu e social history reviewed E&M revi ewed - no changes required Poly Rahman MD seatbelt usage 100 % Samantha mckeon exercise type walking/yard work Samantha wells physical exercise, f requency, days per week yes Samantha Amado caffeine use, averag e drinks per day yes Samanthakartik Amado passive cigarette sm serena exposure no Samantha Ingris smoking status Never smoker Samantha mckeon social history E&M Marital Statu s: L sina with family/friends E thnicity: S moking History: Maggie jordan has never smoked. Johny Dixon social history reviewed E&M revi ewed - no changes required Johny Dixon social history E&M Marital Statu s: L sina with family/friends E thnicity: Smoking History: Magige jordan has never smoked. Mahesh Hoover social history reviewed E&M revi ewed - no changes required Mahesh Hoover seatbelt usage 100 % Samantha mckeon exercise type walking/yard work Samantha wells physical exercise, f requency, days per week yes Samantha Amado caffeine use, averag e drinks per day yes Samantha Amado passive cigarette sm serena exposure no Samantha Amado smoking status Never smoker Samantha mckeon social history E&M Marital Statu s: L sina with family/friends E thnicity: Smoking History: P julian has never smoked. Yuliana Porter social history reviewed E&M revi ewed - no changes required [facility] seatbelt usage 100 % [facility] exercise type walking/yard work [facility] physical exercise, f requency, days per week yes [facility] caffeine use, averag e drinks per day yes [facility] passive cigarette sm serena exposure no [facility] smoking status Never smoker [facility] social history reviewed E&M revi ewed - no changes required Poly Rahman MD social history E&M Marital Statu s: L sina with family/friends E thnicity: Smoking History: P julian has never smoked. Poly Rahman MD smoking status Never smoker [facility] social history E&M Marital Statu s: L sina with family/friends E thnicity: Smoking History: P julian has never smoked. Poly Rahman MD social history reviewed E&M revi ewed - no changes required Poly Rahman MD seatbelt usage 100 % Ellie Bright'Jose exercise type walking/yard work Ellie Bright' Jose physical exercise, f requency, days per week yes Ellie Bright'Jose alcohol use, average drinks per day none Ellie O'Jose alcohol use no Ellie O'Jose caffeine use, averag e drinks per day yes Ellie O'Jose drug use no Ellie O'Jose passive cigarette sm serena exposure no Ellie O'Jose smoking status Never smoker Ellie Bright'Jose seatbelt usage 100 % Jazmyne early exercise type walking/yard work Jazmynemichelle Paulino physical exercise, f requency, days per week yes Jazmyne Abraham alcohol use, average drinks per day none Jazmyne Abraham alcohol use no Jazmyne preston caffeine use, averag e drinks per day yes Jazmyne Abraham drug use no Jazmyne preston smoking status Never smoker Jazmyne early passive cigarette sm serena exposure no Jazmyne Abraham exercise type walking/yard work Jazmyne Paulino seatbelt usage 100 % Jazmyne early physical exercise, f requency, days per week yes Jazmyne Abraham alcohol use, average drinks per day none Jazmyne Abraham alcohol use no Jazmyne preston caffeine use, averag e drinks per day yes Jazmyne Abraham drug use no Jazmyne preston smoking status Never smoker Jazmyne early passive cigarette sm serena exposure no Jazmyne Abraham seatbelt usage 100 % Jazmyne early physical exercise, f requency, days per week yes Jazmyne Abraham alcohol use, average drinks per day none Jazmyne Abraham alcohol use no Jazmyne preston caffeine use, averag e drinks per day yes Jazmyne Abraham drug use no Jazmyne preston smoking status Never smoker Jazmyne early passive cigarette sm serena exposure no Jazmyne Abraham social history E&M Marital Statu s: L sina with family/friends E thnicity: Smoking History: Maggie jordan has never smoked. Poly Rahman MD social history reviewed E&M revi ewed - no changes required Poly Rahman MD physical exercise, f requency, days per week yes Samantha Ingris alcohol use, average drinks per day none Samantha Morrisonjacqueline alcohol use no Samantha Booromejenny leslyeer caffeine use, averag e drinks per day yes Samantha Morrisonjacqueline drug use no Samantha Booromejenny lder passive cigarette sm serena exposure no Samantha Morrisonjacqueline smoking status Never smoker Samantha mckeon number of grandchildren Poly Rahman MD T baron Rahman MD social history reviewed E&M revi ewed - no changes required Poly Rahman MD physical exercise, f requency, days per week yes Navjot Plascencia alcohol use, average drinks per day none Navjot Plascencia alcohol use no Navjot Jose Manuel stacia caffeine use, averag e drinks per day yes NavjotChristine Plascencia drug use no Navjot Richard stacia passive cigarette sm serena exposure no Navjot Plascencia smoking status Never smoker Navjot Ferguson social history reviewed E&M revi ewed - no changes required Poly Rahman MD physical exercise, f requency, days per week yes Lorena Yarbrough alcohol use, average drinks per day none Lorena Yarbrough alcohol use no Lorena Carranzaby caffeine use, averag e drinks per day yes Lorena Zenon drug use no Lorena Pawnee passive cigarette sm serena exposure no Lorena [place] smoking status Never smoker Lorena Yarbrough social history reviewed E&M revi ewed - no changes required Poly Rahman MD physical exercise, f requency, days per week yes Hellen Lazaro alcohol use, average drinks per day none Hellen Willis alcohol use no Hellen Willis caffeine use, averag e drinks per day yes Hellen Lazaro drug use no Hellen Willis passive cigarette sm serena exposure no Hellen Willis smoking status Never smoker Hellen Willis physical exercise, f requency, days per week yes Marcia Gonzales alcohol use, average drinks per day none Marcia Gonzales alcohol use no Marcia Gonzales caffeine use, averag e drinks per day yes Marcia Gonzales drug use no Marcia Gonzales passive cigarette sm serena exposure no Marcia Gonzales smoking status Never smoker Marcia English linden social history reviewed E&M revi ewed - no changes required Marcia Gonzales social history reviewed E&M revi ewed - no changes required Poly Rahman MD number of grandchildren Poly Mesa candie [place] social history reviewed E&M revi ewed - no changes required Poly Rahman MD physical exercise, f requency, days per week yes Navjot Plascencia alcohol use, average drinks per day none Navjot Plascencia alcohol use no Navjot palomo caffeine use, averag e drinks per day yes Navjot Plascencia drug use no Navjot palomo passive cigarette sm serena exposure no Navjot Plascencia smoking status Never smoker Navjot Ferguson social history reviewed E&M revi ewed - no changes required Hilary Bhatti social history reviewed E&M reviewed Poly Rahman MD social history reviewed E&M reviewed Nicolas Ji RN drug use no Nicolas Ji RN passive cigarette sm serena exposure no Nicolas Ji RN social history reviewed E&M reviewed Nicolas Ji RN smoking status never smoker Nicolas Ji RN social history reviewed E&M reviewed Nicolas Ji RN social history reviewed E&M reviewed Poly Rahman MD social history reviewed E&M reviewed Poly Rahman MD social history reviewed E&M reviewed Poly Rahman MD social history E&M Marital Statu s: L sina with family/friends E thnicity: Home Rodriguez MD physical exercise, f requency, days per week yes Home Rodriguez MD social history reviewed E&M reviewed Nicolas Ji RN drug use none Poly Rahman MD social history E&M Marital Statu s: L sina with family/friends E thnicity: Nicolas Ji RN social history reviewed E&M reviewed Nicolas Ji RN physical exercise, f requency, days per week no [employer]Log[employer] caffeine use, averag e drinks per day yes [employer]Logic alcohol use, average drinks per day none [employer] smoking status Non-smoker LinkLog FUNCTIONAL STATUS Date Observation Value Provider HRA, CV Assess/Plan, Angina (inactive) Management Plan continue current therapy Johny Ahmedzai HRA, CV Assess/Plan, Angina (inactive) Management Plan continue current therapy Johny Ahmedzai HRA, CV Assess/Plan, Angina (inactive) Management Plan continue current therapy Johny Ahmedzai HRA, CV Assess/Plan, Angina (inactive) Management Plan continue current therapy Johny Ahmedzai HRA, CV Assess/Plan, Angina (inactive) Management Plan continue current therapy Johny Ahmedzai HRA, CV Assess/Plan, Angina (inactive) Management Plan continue current therapy Poly Rahman MD HRA, CV Assess/Plan, Angina (inactive) Management Plan continue current therapy Johny Jonesabelino HRA, CV Assess/Plan, Angina (inactive) Management Plan continue current therapy Mahesh Hoover HRA, CV Assess/Plan, Angina (inactive) Management Plan continue current therapy Yuliana Buenrostro HRA, CV Assess/Plan, Angina (inactive) Management Plan continue current therapy Poly Rahman MD HRA, CV Assess/Plan, Angina (inactive) Management Plan continue current therapy Poly Rahman MD HRA, CV Assess/Plan, Angina (inactive) Management Plan continue current therapy Poly Rahman MD HRA, CV Assess/Plan, Angina (inactive) Management Plan continue current therapy Poly Rahman MD HRA, CV Assess/Plan, Angina (inactive) Management Plan continue current therapy Poly Rahman MD HRA, CV Assess/Plan, Angina (inactive) Management Plan continue current therapy Poly Rahman MD MENTAL STATUS Date Observation Value Provider assessment of judgme nt and insight E&M Alert and oriented to time, place and person. Mood and affect are normal. Poly Rahman MD assessment of judgme nt and insight E&M Alert and oriented to time, place and person. Mood and affect are normal. Nicolas Ji RN assessment of judgme nt and insight E&M Alert and oriented to time, place and person. Mood and affect are normal. Nicolas Ji RN assessment of judgme nt and insight E&M Alert and oriented to time, place and person. Mood and affect are normal. Nicolas Ji RN assessment of judgme nt and insight E&M Alert and oriented to time, place and person. Mood and affect are normal. Poly Rahman MD assessment of judgme nt and insight E&M Alert and oriented to time, place and person. Mood and affect are normal. Poly Rahman MD assessment of judgme nt and insight E&M Alert and oriented to time, place and person. Mood and affect are normal. Poly Rahman MD assessment of judgme nt and insight E&M Alert and oriented to time, place and person. Mood and affect are normal. Poly Rahman MD assessment of judgme nt and insight E&M Alert and oriented to time, place and person. Mood and affect are normal. Nicolas Ji RN assessment of judgme nt and insight E&M Alert and oriented to time, place and person. Mood and affect are normal. Nicolas Ji RN FAMILY HISTORY Family Member Condition Mother Family History of Hy pertension: Mother Family History of CV A or Stroke: INSURANCE PROVIDERS Payer name Policy type / Coverage type Issue red constitution party ID [facility] MEDICARE ADVANTAGE PLAN (PPO) Medicare [id number] ADVANCE DIRECTIVES Name Date DISCUSSED - NO DECISION MADE TREATMENT PLAN Date Name Performer [id number],S, Johny Ahmedza i [id number],S, Johny Ahmedza i [id number],S, Johny Ahmedza i [id number],S, Johny Ahmedza i [id number],S, Johny Alegriamedza i [id number],S, Johny Alegriamedza i [id number],BPoly MD [id number],SPoly MD [id number],SPoly MD [id number],SPoly MD [id number],S, Johny Jones i [id number],S, Johny Alegriamedza i [id number],S, Johny Ahmedza i [id number],S, Johny Ahmedza i [id number],S, Johny Ahmedza i [id number],S, Johny Ahmedza i [id number],S, Johny Ahmedza i [id number],S, Johny Ahmedza i [id number],S, Johny Ahmedza i [id number],S, Poly Rahman MD [id number],S, Poly Rahman MD [id number],W, Poly Rahman MD [id number],S, Poly Rahman MD [id number],S, Johny Ahmedza i [id number],S, Johny Ahmedza i [id number],S, Johny Ahmedza i [id number],S, Johny Ahmedza i Cardiology:This visi t has been a part of the consistent, comprehensive, and ongoing management of the chronic medical condition(s) listed above for the patient. Poly Rahman MD Cardiology Johny Ahmedzai Cardiology Johny Ahmedzaabelino Cardiology Johny Ahmedzai Cardiology Johny Ahmedzai Cardiology Johny Ahmedzai Cardiology Johny Ahmedzai Cardiology: O rders: V enous Doppler Bilateral LE - Ref[id number][facility] O rders: L IPID PANEL (4899) C omplete Echo (92537) Johny Ahmedzai Cardiology Johny Ahmedzai Cardiology Johny Ahmedzai Cardiology Johny Ahmedzai Cardiology Johny Ahmedzai Cardiology Johny Ahmedzai Cardiology Johny Ahmedzai Cardiology Johny Ahmedzai Cardiology Johny Ahmedzai Cardiology Poly Rahman MD Cardiology Poly Rahman MD Cardiology Poly Rahman MD Cardiology Poly Rahman MD Cardiology Johny Ahmedzai Cardiology Johny Ahmedzai Cardiology Johny Ahmedzai Cardiology Johny Ahmedzai Cardiology Johny Ahmedzai Cardiology Johny Ahmedzai Cardiology Johny Ahmedzai Cardiology Johny Ahmedzai Cardiology Johny Ahmedzai Cardiology Poly Rahman MD Cardiology Poly Rahman MD Cardiology Poly Rahman MD Cardiology Poly Rahman MD Cardiology Johny Ahmedzai Cardiology Johny Ahmedzai Cardiology Johny Ahmedzai Cardiology Johny Ahmedzai Cardiology Follow up Mahesh C Beat ty Cardiology Follow up Mahesh C Beat ty Telehealth [facility] Telehealth: H is updated medication list for this problem includes: Rosuvastatin 20mg Tablets (Rosuvastatin calcium) ..... Take 1 tablet by mouth daily at bedtime [facility] Telehealth [facility] Telehealth [facility] Telehealth [facility] Telehealth [facility] Cardiology - Poly Rahman MD Cardiology - Poly Rahman MD Cardiology - Poly Rahman MD Cardiology Poly Rahman MD Cardiology Poly Rahman MD Cardiology Poly Rahman MD Cardiology Poly Rhaman MD Cardiology Poly Rahman MD Cardiology Poly Rahman MD Cardiology Poly Rahman MD Cardiology Poly Rahman MD Cardiology Poly Rahman MD Cardiology Follow up Poly gaxiola MD Cardiology Follow up :Continue a torvastatin. Poly Rahman MD Cardiology Follow up :Stop aspirin and clopidogrel. Pt. given samples of Xarelto. As patient's KG score is now over 2. Poly Rahman MD Cardiology:Continues on atorvast atin. Poly Rahman MD Cardiology:Chest belinda n free. Effort tolerance stable. 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 CHADSVasc 1. Continues on high dose atorvastatin and aspirin. Poly Rahman MD Cardiology:Last LDL in 12/2016 w as 55. Poly Rahman MD Cardiology Poly Rahman MD Cardiology Poly Rahman MD Cardiology Poly Rahman MD Cardiology Poly Rahman MD Cardiology Follow up Poly gaxiola MD Cardiology Follow up Poly gaxiola MD Cardiology Poly Rahman MD Cardiology Ploy Rahman MD Cardiology Poly Rahman MD Cardiology Poly Rahman MD Cardiology Poly Rahman MD Cardiology Poly Rahman MD Cardiology Poly Rahman MD follow up: H is updated medication list for this problem includes: Aspirin 81 Mg Tabs (Aspirin) ..... One tab. daily Poly Rahman MD follow up: H is updated medication list for this problem includes: Aspirin 81 Mg Tabs (Aspirin) ..... One tab. daily Orders: E KG ([id number]) Poly Rahman MD Follow Up: H is updated medication list for this problem includes: Aspirin 81 Mg Tabs (Aspirin) ..... One tab. daily BP today: 150/96 P rior BP: 158/94 (02/16/2013) Labs Reviewed: C reat: 1.09 (02/16/2013) C hol: 207 (05/28/2013) HDL: 38 (05/28/2013) LDL: 143 (05/28/2013) T (05/28/2013) Poly Rahman MD Follow Up: H is updated medication list for this problem includes: Aspirin 81 Mg Tabs (Aspirin) ..... One tab. daily Poly Rahman MD Follow Up: T he following medications were removed from the medication list: Simvastatin 20 Mg Tabs (Simvastatin) ..... One tab. daily His updated medication list for this problem includes: Aspirin 81 Mg Tabs (Aspirin) ..... One tab. daily Poly Rahman MD Follow Up Poly Rahman MD routine- device check Poly nicole MD routine- device chec k : H is updated medication list for this problem includes: Aspirin 81 Mg Tabs (Aspirin) ..... One tab. daily Prior BP: 157/95 (02/11/2012) Labs Reviewed: C reat: 1.13 (03/22/2008) Poly Rahman MD routine- device chec k : H is updated medication list for this problem includes: Aspirin 81 Mg Tabs (Aspirin) ..... One tab. daily Prior BP: 157/95 (02/11/2012) Labs Reviewed: C reat: 1.13 (03/22/2008) Poly Rahman MD routine- device chec k : H is updated medication list for this problem includes: Aspirin 81 Mg Tabs (Aspirin) ..... One tab. daily BP today: / Prior BP: 157/95 (02/11/2012) N uclear Stress Findings: Negative stress EKG. Baseline Atrial fibrillation. Ventricular extraosystoles and one asymptomatic nonsustained three-beat VT during stress test. Normal myocardial perfusion without infarct or ischemia. Normal gated study with LVEF 56%. SLHV (05/06/2006) H gb: 14.5 (03/22/2008) HCT: 44.0 (03/22/2008) RBC: 14.9 (03/22/2008) WBC: 5.3 (03/22/2008) B UN: 22 (03/22/2008) Creat: 1.13 (03/22/2008) Na+: 139 (03/22/2008) K+: 4.3 (03/22/2008) Cl: 106 (03/22/2008) PT: 10.2 (03/22/2008) INR: 1.0 (03/22/2008) Poly Rahman MD routine-echo: H is updated medication list for this problem includes: Aspirin 81 Mg Tabs (Aspirin) ..... One tab. daily BP today: 157/95 P rior BP: 130/72 (02/05/2011) Labs Reviewed: Juan reat: 1.13 (03/22/2008) Poly Rahman MD routine-echo: H is updated medication list for this problem includes: Aspirin 81 Mg Tabs (Aspirin) ..... One tab. daily BP today: 157/95 P rior BP: 130/72 (02/05/2011) Labs Reviewed: Juan reat: 1.13 (03/22/2008) Poly Rahman MD routine-echo: H is updated medication list for this problem includes: Aspirin 81 Mg Tabs (Aspirin) ..... One tab. daily BP today: 157/95 Prior BP: 130/72 (02/05/2011) N uclear Stress Findings: Negative stress EKG. Baseline Atrial fibrillation. Ventricular extraosystoles and one asymptomatic nonsustained three-beat VT during stress test. Normal myocardial perfusion without infarct or ischemia. Normal gated study with LVEF 56%. SLHV (05/06/2006) H gb: 14.5 (03/22/2008) HCT: 44.0 (03/22/2008) RBC: 14.9 (03/22/2008) WBC: 5.3 (03/22/2008) B UN: 22 (03/22/2008) Creat: 1.13 (03/22/2008) Na+: 139 (03/22/2008) K+: 4.3 (03/22/2008) Cl: 106 (03/22/2008) PT: 10.2 (03/22/2008) INR: 1.0 (03/22/2008) Poly Rahman MD routine : H is updated medication list for this problem includes: Aspirin 81 Mg Tabs (Aspirin) ..... One tab. daily Poly Rahman MD routine Poly Rahman MD routine : H is updated medication list for this problem includes: Aspirin 81 Mg Tabs (Aspirin) ..... One tab. daily BP today: 130/72 P rior BP: 124/76 (02/10/2010) Labs Reviewed: C reat: 1.13 (03/22/2008) Poly Rahman MD routine : H is updated medication list for this problem includes: Aspirin 81 Mg Tabs (Aspirin) ..... One tab. daily BP today: 130/72 P rior BP: 124/76 (02/10/2010) Labs Reviewed: C reat: 1.13 (03/22/2008) Poly Rahman MD routine : H is updated medication list for this problem includes: Aspirin 81 Mg Tabs (Aspirin) ..... One tab. daily BP today: 130/72 Prior BP: 124/76 (02/10/2010) N uclear Stress Findings: Negative stress EKG. Baseline Atrial fibrillation. Ventricular extraosystoles and one asymptomatic nonsustained three-beat VT during stress test. Normal myocardial perfusion without infarct or ischemia. Normal gated study with LVEF 56%. SLHV (05/06/2006) H gb: 14.5 (03/22/2008) HCT: 44.0 (03/22/2008) RBC: 14.9 (03/22/2008) WBC: 5.3 (03/22/2008) B UN: 22 (03/22/2008) Creat: 1.13 (03/22/2008) Na+: 139 (03/22/2008) K+: 4.3 (03/22/2008) Cl: 106 (03/22/2008) PT: 10.2 (03/22/2008) INR: 1.0 (03/22/2008) Poly Rahman MD Poly Rahman MD : H is updated medication list for this problem includes: Aspirin 81 Mg Tabs (Aspirin) ..... One tab. daily Poly Rahman MD : H is updated medication list for this problem includes: Aspirin 81 Mg Tabs (Aspirin) ..... One tab. daily Poly Rahman MD : H is updated medication list for this problem includes: Aspirin 81 Mg Tabs (Aspirin) ..... One tab. daily Poly Rahman MD Poly Rahman MD : H is updated medication list for this problem includes: Aspirin 81 Mg Tabs (Aspirin) ..... One tab. daily BP today: / Prior BP: 133/83 (07/25/2009) N uclear Stress Findings: Negative stress EKG. Baseline Atrial fibrillation. Ventricular extraosystoles and one asymptomatic nonsustained three-beat VT during stress test. Normal myocardial perfusion without infarct or ischemia. Normal gated study with LVEF 56%. SLHV (05/06/2006) H gb: 14.5 (03/22/2008) HCT: 44.0 (03/22/2008) RBC: 14.9 (03/22/2008) WBC: 5.3 (03/22/2008) B UN: 22 (03/22/2008) Creat: 1.13 (03/22/2008) Na+: 139 (03/22/2008) K+: 4.3 (03/22/2008) Cl: 106 (03/22/2008) PT: 10.2 (03/22/2008) INR: 1.0 (03/22/2008) Poly Rahman MD 6 month follow-up: H is updated medication list for this problem includes: Aspirin 81 Mg Tabs (Aspirin) ..... One tab. daily BP today: 133/83 P rior BP: 136/92 (01/28/2009) Labs Reviewed: C reat: 1.13 (03/22/2008) Poly Rahman MD 6 month follow-up Poly Andres 6 month follow-up: H is updated medication list for this problem includes: Aspirin 81 Mg Tabs (Aspirin) ..... One tab. daily Poly Rahman MD 6 month follow-up: H is updated medication list for this problem includes: Aspirin 81 Mg Tabs (Aspirin) ..... One tab. daily Orders: C omplete Echo ([id number]) BP today: 133/83 Prior BP: 136/92 (01/28/2009) N uclear Stress Findings: Negative stress EKG. Baseline Atrial fibrillation. Ventricular extraosystoles and one asymptomatic nonsustained three-beat VT during stress test. Normal myocardial perfusion without infarct or ischemia. Normal gated study with LVEF 56%. SLHV (05/06/2006) H gb: 14.5 (03/22/2008) HCT: 44.0 (03/22/2008) RBC: 14.9 (03/22/2008) WBC: 5.3 (03/22/2008) B UN: 22 (03/22/2008) Creat: 1.13 (03/22/2008) Na+: 139 (03/22/2008) K+: 4.3 (03/22/2008) Cl: 106 (03/22/2008) PT: 10.2 (03/22/2008) INR: 1.0 (03/22/2008) Poly Rahman MD 6 month follow-up wi th Echo done today RM#7: H is updated medication list for this problem includes: Aspirin 81 Mg Tabs (Aspirin) ..... One tab. daily BP today: 136/92 P rior BP: 112/70 (07/30/2008) Labs Reviewed: C reat: 1.13 (03/22/2008) Poly Rahman MD 6 month follow-up wi th Echo done today RM#7: H is updated medication list for this problem includes: Aspirin 81 Mg Tabs (Aspirin) ..... One tab. daily Poly Rahman MD 6 month follow-up wi th Echo done today RM#7: H is updated medication list for this problem includes: Aspirin 81 Mg Tabs (Aspirin) ..... One tab. daily BP today: 136/92 Prior BP: 112/70 (07/30/2008) N uclear Stress Findings: Negative stress EKG. Baseline Atrial fibrillation. Ventricular extraosystoles and one asymptomatic nonsustained three-beat VT during stress test. Normal myocardial perfusion without infarct or ischemia. Normal gated study with LVEF 56%. SLHV (05/06/2006) H gb: 14.5 (03/22/2008) HCT: 44.0 (03/22/2008) RBC: 14.9 (03/22/2008) WBC: 5.3 (03/22/2008) B UN: 22 (03/22/2008) Creat: 1.13 (03/22/2008) Na+: 139 (03/22/2008) K+: 4.3 (03/22/2008) Cl: 106 (03/22/2008) PT: 10.2 (03/22/2008) INR: 1.0 (03/22/2008) Poly Rahman MD FU: Room 3: H is updated medication list for this problem includes: Aspirin 81 Mg Tabs (Aspirin) ..... One tab. daily Poly Rahman MD FU: Room 3: H is updated medication list for this problem includes: Aspirin 81 Mg Tabs (Aspirin) ..... One tab. daily BP today: 112/70 P rior BP: 123/83 (04/28/2008) Labs Reviewed: C reat: 1.13 (03/22/2008) Poly Rahman MD FU: Room 3: H is updated medication list for this problem includes: Aspirin 81 Mg Tabs (Aspirin) ..... One tab. daily Poly Rahman MD FU: Room 3 Poly Rahman MD FU: Room 3: H is updated medication list for this problem includes: Aspirin 81 Mg Tabs (Aspirin) ..... One tab. daily BP today: 112/70 Prior BP: 123/83 (04/28/2008) N uclear Stress Findings: Negative stress EKG. Baseline Atrial fibrillation. Ventricular extraosystoles and one asymptomatic nonsustained three-beat VT during stress test. Normal myocardial perfusion without infarct or ischemia. Normal gated study with LVEF 56%. SLHV (05/06/2006) H gb: 14.5 (03/22/2008) HCT: 44.0 (03/22/2008) RBC: 14.9 (03/22/2008) WBC: 5.3 (03/22/2008) B UN: 22 (03/22/2008) Creat: 1.13 (03/22/2008) Na+: 139 (03/22/2008) K+: 4.3 (03/22/2008) Cl: 106 (03/22/2008) PT: 10.2 (03/22/2008) INR: 1.0 (03/22/2008) Poly Rahman MD Date Name Complete Echo Venous Doppler Bilat eral LE - Reflux LIPID PANEL PROTHROMBIN TIME WIT H INR LIPID PANEL CBC (INCLUDES DIFF/P LT) BASIC METABOLIC PANE L W/EGFR Stress Exercise Card iolite Complete Echo Holter Monitor 24 Hr Stress Exercise Card iolite Complete Echo Complete Echo LIPID PANEL COMPREHENSIVE METABO LIC PANEL, W/EGFR Complete Echo Complete Echo HISTORY OF PROCEDURES Procedure Date Procedure Name Provider Procedure Notes S tatus Complex e/m visit ad d on Poly Rahman MD completed EKG Poly Rahman MD completed EKG Poly Rahman MD completed EKG Poly Rahman MD completed Cardiolite, 2 units Poly Rahman MD completed SPECT Images Poly Rahman MD complet ed Stress EKG Poly Rahman MD completed EKG Poly Rahman MD completed EKG Poly Rahman MD completed Pacemaker Interrogation, Remote (Tech) Poly Rahman MD INTERROGATION REMOTE </90 D PRINCIPAL TRAINER REVIEW completed Pacemaker Interrogation, Remote (Prof) Poly Rahman MD INTERROGATION EVAL REMOTE </90 D 1/2/MEDICAL CLINIC MANAGER LEAD P completed ICM Interrogation, Remote (Prof) Poly Rahman MD INTERROGATION EVAL REMOTE </30 D CV MNTR SYS completed ICM Interrogation, Remote (Tech) Poly Rahman MD INTERROGATION EVAL REMOTE </30 D TECH REVIEW completed Pacemaker Interrogation, Remote (Tech) Poly Rahman MD INTERROGATION REMOTE </90 D PRINCIPAL TRAINER REVIEW completed Pacemaker Interrogation, Remote (Prof) Poly Rahman MD INTERROGATION EVAL REMOTE </90 D 1/2/MEDICAL CLINIC MANAGER LEAD P completed Pacemaker Interrogation, Remote (Tech) Poly Rahman MD INTERROGATION REMOTE </90 D PRINCIPAL TRAINER REVIEW completed Pacemaker Interrogation, Remote (Prof) Poly Rahman MD INTERROGATION EVAL REMOTE </90 D 1/2/MEDICAL CLINIC MANAGER LEAD P completed Pacemaker Interrogation, Remote (Tech) Poly Rahman MD INTERROGATION REMOTE </90 D PRINCIPAL TRAINER REVIEW completed Pacemaker Interrogation, Remote (Prof) Poly Rahman MD INTERROGATION EVAL REMOTE </90 D 1/2/MEDICAL CLINIC MANAGER LEAD P completed SNOMED-CT: [id number] Current Medications Documented Poly Rahman MD completed Pacemaker Interrogation, Remote (Tech) Poly Rahman MD INTERROGATION REMOTE </90 D PRINCIPAL TRAINER REVIEW completed Pacemaker Interrogation, Remote (Prof) Poly Rahman MD INTERROGATION EVAL REMOTE </90 D 1/2/MEDICAL CLINIC MANAGER LEAD P completed SNOMED-CT: [id number] Current Medications Documented Poly Rahman MD completed Pacemaker Interrogation, Remote (Tech) Poly Rahman MD INTERROGATION REMOTE </90 D PRINCIPAL TRAINER REVIEW completed Pacemaker Interrogation, Remote (Prof) Poly Rahman MD INTERROGATION EVAL REMOTE </90 D 1/2/MEDICAL CLINIC MANAGER LEAD P completed Stress EKG Poly Rahman MD completed Regadenoson, 4 units Poly Rahman MD completed Cardiolite, 2 units Poly Rahman MD completed SPECT Images Poly Rahman MD complet ed SNOMED-CT: [id number] Physical Exam, Performed: Pulse Exam of Foot Poly Rahman MD completed EKG Poly Rahman MD completed SNOMED-CT: [id number] Current Medications Documented Poly Rahman MD completed Pacemaker Interrogation, Remote (Tech) Poly Rahman MD INTERROGATION REMOTE </90 D PRINCIPAL TRAINER REVIEW completed Pacemaker Interrogation, Remote (Prof) Poly Rahman MD INTERROGATION EVAL REMOTE </90 D 1/2/MEDICAL CLINIC MANAGER LEAD P completed Pacemaker Interrogation, Remote (Tech) Poly Rahman MD INTERROGATION REMOTE </90 D PRINCIPAL TRAINER REVIEW completed Pacemaker Interrogation, Remote (Prof) Poly Rahman MD INTERROGATION EVAL REMOTE </90 D 1/2/MEDICAL CLINIC MANAGER LEAD P completed SNOMED-CT: [id number] Physical Exam, Performed: Pulse Exam of Foot Poly Rahman MD completed SNOMED-CT: [id number] Current Medications Documented Poly Rahman MD completed Pacemaker Interrogation, Remote (Tech) Poly Rahman MD INTERROGATION REMOTE </90 D PRINCIPAL TRAINER REVIEW completed Pacemaker Interrogation, Remote (Prof) Poly Rahman MD INTERROGATION EVAL REMOTE </90 D 1/2/MEDICAL CLINIC MANAGER LEAD P completed SNOMED-CT: [id number] Physical Exam, Performed: Pulse Exam of Foot Poly Rahman MD completed SNOMED-CT: [id number] Current Medications Documented Poly Rahman MD completed Stress EKG Poly Rahman MD completed Cardiolite, 2 units Poly Rahman MD completed SPECT Images Poly Rahman MD complet ed SNOMED-CT: [id number] Physical Exam, Performed: Pulse Exam of Foot Poly Rahman MD completed EKG Poly Rahman MD completed SNOMED-CT: [id number] Current Medications Documented Poly Rahman MD completed EKG Poly Rahman MD completed SERENA Rahman MD completed Pacemaker Programmin g (Dual Lead) Poly Rahman MD PROGRAM EVAL IMPLANTABLE IN PERSN DUAL LD PACER completed SERENA Rahman MD completed
--- OUTSIDE RECORDS SUMMARY | 2024-06-17 07:15 | XMS_ITS | Clinical Summary ---
Author Organization [facility] Address [address] [place] [address] Care Team Providers Care Gamma Operator Name Role Phone Pelon Montana MD Primary Care Provider [phone] Allergies Active Allergy Reactions Criticality Noted Date [...] (MYRBETRIQ) 25 mg tablet extended release 24 hrIndications:Udstin dder Hyperactivity Take 1 tablet (25 mg total) by mouth daily 30 tablet 11 3 Active Additional Information Patient not taking.Reported on 06/27/2023 vit C,F-Dq-nbbsx-lute in-zeaxan 250-90-40-1 mg capsule Take 1 capsule by mouth daily Active trospium XR (SANCTURA XR) 60 mg capsule,extended release 24hr Take 1 capsule (60 mg total) by mouth daily before breakfast 90 capsule 3 4 Active Active Problems Problem Noted Date Diagnosed Date Paroxysmal atrial fibrillation 06/28/2023 Elevated PSA 03/08/2023 Arthralgia of hip 06/20/2016 Arthralgia of shoulder 01/17/2015 Encounters Date Type Department Care Team Description 04/27/2024 3:20 PM HAT TRIMMER Telemedicine [facility] Medicine ([facility]) - [facility] Urology [address] [place] [address] [place] [address] Mery Kearney MD Elevated PSA (Primary Dx); Prostate cancer (HCC) 04/06/2024 9:40 AM HAT TRIMMER Office Visit [facility] Surgery [address] [place] [address] [address] [place] [address] Elevated PSA (Primary Dx) from Last 3 Months Surgical History Surgery Date Site/Laterality Comments CARDIAC SURGERY pacemaker ~ 2008, replaced 2015, 2018 HERNIA REPAIR ROTATOR CUFF REPAIR Right SHOULDER ARTHROSCOPY Left rotator cuff repair SHOULDER SURGERY Left three open, 2 arthoscopies-@ [facility] INSERT / REPLACE / REMOVE PACEMAKER FLUORO GUIDED INJECTION HIP RIGHT 2018 Right IR INJECTION ARTHROGRAM SI J OINT RIGHT INCLUDES IMAGING GUIDANCE 10/28/2018 Right IR INJECTION ARTHROGRAM SI J OINT RIGHT INCLUDES IMAGING GUIDANCE 05/26/2019 Right IR INJECTION ARTHROGRAM SI J OINT LEFT INCLUDES IMAGING GUIDANCE 10/03/2021 Left IR INJECTION ARTHROGRAM SI J OINT RIGHT INCLUDES IMAGING GUIDANCE 10/03/2021 Right ROTATOR CUFF REPAIR Right REVERSE TOTAL SHOULDER ARTHROPLASTY Right CARDIAC CATHETERIZATION Spring 2022 -no stents- CAD + SKIN BIOPSY 03/19/2023 several skin bx's 4 weeks ago, healing IR INJECTION ARTHROGRAM SI J OINT BILATERAL WITH GUIDANCE 07/09/2023 Bilateral IR INJECTION ARTHROGRAM SI J OINT BILATERAL WITH GUIDANCE 11/12/2023 Bilateral Medical History Medical History Date Comments Atrial fibrillation (HCC) chroni c afib/has pacer/on Xarelto DDD (degenerative disc disease), lumbar Lumbar facet arthropathy Anterolisthesis of lumbar sp ine-grade 1 L4 on L5, L5 on S1 08/24/2021 Retrolisthesis of lumbar vertebrae-grade 1 L1 on L2-L2 on L3 08/24/2021 Dextroscoliosis of lumbar spine 08/24/2021 Chronic sacroiliac joint pain PONV (postoperative nausea a nd vomiting) Cancer (HCC) basal cell nose HL (hearing loss) Wears glasses History of detached retina repair takes eye vitamins Pacemaker last battery rep lacement ~ 2019 Eye problems 03/19/2023 Left eye virus 1 .5 years- takes antiviral eye drops & oral antiviral Valtrex Family History Medical History Relation Name Comments Cancer Brother Cancer Father Hypertension Mother Family history of hypertension - (Added by TW Conv) Stroke Mother Family history of cerebrovascular accident (CVA) - (Added by TW Conv) Relation Name Status Comments Brother Father Mother Social History Tobacco Use Types Packs/Day Years [...] on file Legal Sex Male 1:27 PM HAT TRIMMER Gender Identity Not on file Sexual Orientation Not on file Occupation Industry Job Start Date Job End Date [employer] Not on file Not on file Not on filippo e Obstetrics History Last Filed Vital Signs Vital Sign Reading Time Taken Comments Blood Pressure 123/87 04/16/2023 9:35 AM HAT TRIMMER Pulse 61 04/16/2023 9:35 AM HAT TRIMMER Temperature 35.9 C (96.7 F) 04/16/2023 9:05 AM HAT TRIMMER Respiratory Rate 18 04/16/2023 9:35 AM HAT TRIMMER Oxygen Saturation 96% 04/16/2023 9:35 AM HAT TRIMMER Inhaled Oxygen Concentration - - Weight 98.9 kg (218 lb) 04/01/2023 10:00 AM HAT TRIMMER Height 185.4 cm (6' 1 ) 04/01/2023 10:00 AM HAT TRIMMER Body Mass Index 28.76 04/01/2023 10:00 AM HAT TRIMMER Plan of Treatment Health Maintenance Due Date Last Done Comments Depression Screening 1945 Hepatitis C Screening 1945 Hepatitis B Screening 1964 Zoster Vaccine (1 of 2) 1996 Well Visit 65+ 09/19/2011 Fall Risk Assessment 04/16/2024 04/16/2023 DTaP/Tdap/Td Vaccine (2 - Td or Tdap) 12/25/2025 12/26/2015, 03/15/2014 Pneumococcal vaccine 65+ Completed 015, 04/06/2013, 03/27/2013 Influenza Vaccine Completed 12/26/2023, , 01/07/2022, Additional history exists Medical Devices Implanted Type Area Repair Electric Motor Assembler Device Identifier Shelf Expiration Date Model / Serial / Lot Ji Ra Lead [id number]/ 31/2008 Implanted: (Quantity not on file) Lead [employer] [id number] / / Ji Rv Lead [id number]/ 31/2008 Implanted: (Quantity not on file) Lead [employer] [id number] / / Medtronic Pm [id number] 16 Implanted:Qty : 1 on 07/25/2015 Pacemaker Chest Wall [employer] Cardiac Rhythm Mgmt [id number] / / Insurance UHC MEDICARE ADVANTAGE [facility] MEDICARE ADVANTAGE UHC MEDICARE ADVANTAGE Advance Directives For more information, please contact: [phone] Documents on File Type Date Recorded Patient Retail Office Associate Expl anation Power of Tape Weaver 04/16/2023 5:38 AM Care Teams Gamma Operator Relationship Specialty Start Date End Date Pelon Montana MD [address] [place] [id number] PCP - General Internal Medicine 04/01/23
--- OUTSIDE RECORDS SUMMARY | 2024-06-17 07:16 | XMS_ITS | Data Portability ---
Author Organization [place] [facility] [employer], Main Office Address [address] [place] [address] Assessment Encounter Date Assessment Date Assessment LastModified by Organization Details LastModified Time 07/05/2022 07/05/2022 CT scan lumbar spine Blood Work ordered Continue current therapy 4 month follow-up Not available 07/14/2022 22:06:45 11/01/2022 11/01/2022 Continue current therapy blood work reviewed consultation notes reviewed discussed with patient follow-up with me in 4 months [email or web address] Not available 11/01/2022 14:41:09 11/08/2022 11/08/2022 Probably just musculoskeletal contusion of chest wall will x-ray the chest and some rib details and I expect that he will probably bruise up a little bit tomorrow if he has any further problems he will let me know [email or web address] Not available 11/08/2022 22:51:02 Plan of Treatment Reminders Order Date Submit Date Provider Last Modified By Organization Details Last Modified Time Details Appointments None recorded. Lab PSA, serum or plasma 2022 023 [email or web address] Not available 3 09:53:56 lipid panel, serum 2022 023 WILLY Not available 19:41:33 CMP, serum or plasma 2022 023 WILLY Not available 19:41:39 CBC w/ auto diff 2022 023 WILLY Not available 18:03:37 Referral None recorded. Procedures None recorded. Surgeries None recorded. Imaging XR, ribs, unilateral , 3 or more view 2022 023 [facility] ([facility]), [address] [place], [address], 3 12:23:19 XR, chest 2022 023 [facility] ([facility]), [address] [place], [address], 3 12:23:25 CT, lumbar spine, w/o contrast 2022 [facility]23 [facility] 3 09:02:50 Medication Orders None recorded. Patient TargetsNo targets recorded. Patient Instructions Encounter Date Encounter Id Patient Instructions Last Modified By Organization Details Last Modified Time 07/05/2022 [id number] dementia rating scale-2* [email or web address] Not available 07/05/2022 14:45:48 alcohol misuse* Not available 07/05/2022 14:45:48 depression screening* [email or web address] Not available 07/05/2022 14:45:48 Timed Up and Go test (TUG)* [email or web address] Not available 07/05/2022 14:45:48 multi-dimensiona l health assessment questionnaire* [email or web address] Not available 07/05/2022 14:45:48 Personalized a lt Plan and Screening Recommendations Advance Directives - Do you have one? Yes Advance Directives - Do we have your advance directive on file in your health record? No, please bring in a copy at your earliest convenience Primary Prevention/Interven tion (prevents or decreases the chance of common diseases from occurring) Smoking Risk: Non Smoker Alcohol Misuse Screening: Negative Weight: Appropriate Overwei ght continue your current weight loss efforts try to lose 5% of your body weight try to lose 10% of your body weight Physical activity: Need more exercise/physical activity Nutrition: Good Average Fall Risk (screened today): Low Vaccines Pneumococcal: Ordered Recommended today Recommended today, but you have declined No further needed Influenza: Your next one in the fall of this year Chronic Disease Risks Stroke: Low Risk Intermediate Risk I have no recommendations Act eddie diagnosis, Continue current treatment plan Heart Attack: Low risk Intermediate Risk I have no recommendations Act eddie diagnosis, Continue current treatment plan Clogging of the Arteries: Low risk Intermediate Risk I have no recommendations Act eddie diagnosis, Continue current treatment plan Diabetes: Low Risk I have no recommendations Secondary Prevention/Interven tion (detects treatable diseases before they may cause symptoms, disability, or ) Prostate Cancer Screening: Colon Cancer Screening: Colonoscopy Date Screening Last Performed: __2020 Eye Disease Screening: Dementia Risk: Low I have no recommendations Depression Screening: Negative [email or web address] Not available 07/05/2022 14:32:49 Reason for Referral None Reported. Results Created Date Observation Date Name Description Value Unit Range Abnormal Flag Note LastModifiedBy Organization Detail LastModifiedTime 07/06/1907/05/2022 CBC/C OMPLE TE BLD COUNT W/DIF F white blood cells 4.9 x10'3 /uL 4.2-10 .8 Not Available [facility] (Lab) [address] [place], [address], 07/05/2022 18:03:37 07/06/19 23 07/05/2022 CBC/C OMPLE TE BLD COUNT W/DIF F red blood cells 4.67 x10'6 /uL 4.10-5 .80 Not Available [facility] (Lab) [address] [place], [address], 07/05/2022 18:03:37 07/06/19 23 07/05/2022 CBC/C OMPLE TE BLD COUNT W/DIF F hemoglobin 14.0 g/dL 13.2-1 7.0 Not Available [facility] (Lab) [address] [place], [address], 07/05/2022 18:03:37 07/06/19 23 07/05/2022 CBC/C OMPLE TE BLD COUNT W/DIF F hematocrit 43.8 % 39.3-5 0.0 Not Available [facility] (Lab) [address] [place], [address], 07/05/2022 18:03:37 07/06/19 23 07/05/2022 CBC/C OMPLE TE BLD COUNT W/DIF F mean red cell volume 93.8 fL 80.0-9 7.0 Not Available [facility] (Lab) [address] [place], [address], 07/05/2022 18:03:37 07/06/19 23 07/05/2022 CBC/C OMPLE TE BLD COUNT W/DIF F mean red cell hemoglobin 30.0 pg 27.0-3 3.0 Not Available [facility] (Lab) [address] [place], [address], 07/05/2022 18:03:37 07/06/1907/05/2022 CBC/C OMPLE TE BLD COUNT W/DIF F mean RBC HGB concentratio n 32.0 g/dL 31.0-3 6.0 Not Available [facility] (Lab) [address] [place], [address], 07/05/2022 18:03:37 07/06/19 23 07/05/2022 CBC/C OMPLE TE BLD COUNT W/DIF F red cell distribution width 15.2 % 11.8-1 5.5 Not Available [facility] (Lab) [address] [place], [address], 07/05/2022 18:03:37 07/06/1907/05/2022 CBC/C OMPLE TE BLD COUNT W/DIF F platelets 186 x10'3 /uL 150-40 0 Not Available [facility] (Lab) [address] [place], [address], 07/05/2022 18:03:37 07/06/1907/05/2022 CBC/C OMPLE TE BLD COUNT W/DIF F mean platelet volume 10.4 fL 9.0-12 .4 Not Available [facility] (Lab) [address] [place], [address], 07/05/2022 18:03:37 07/06/19 23 07/05/2022 CBC/C OMPLE TE BLD COUNT W/DIF F neutrophils 50.3 % 39.0-7 2.0 Not Available [facility] (Lab) [address] [place], [address], 07/05/2022 18:03:37 07/06/19 23 07/05/2022 CBC/C OMPLE TE BLD COUNT W/DIF F lymphocytes 36.2 % 16.0-4 7.0 Not Available [facility] (Lab) [address] [place], [address], 07/05/2022 18:03:37 07/06/19 23 07/05/2022 CBC/C OMPLE TE BLD COUNT W/DIF F monocytes 11.7 % 5.0-12 .0 Not Available [facility] (Lab) [address] [place], [address], 07/05/2022 18:03:37 07/06/19 23 07/05/2022 CBC/C OMPLE TE BLD COUNT W/DIF F eosinophils 0.8 % 1.0-7. 0 low Not Available [facility] (Lab) [address] [place], [address], 07/05/2022 18:03:37 07/06/19 23 07/05/2022 CBC/C OMPLE TE BLD COUNT W/DIF F basophils 0.8 % 0.0-2. 0 Not Available [facility] (Lab) [address] [place], [address], 07/05/2022 18:03:37 07/06/19 23 07/05/2022 CBC/C OMPLE TE BLD COUNT W/DIF F immature granulocytes 0.2 % 0.00-0 .50 Not Available [facility] (Lab) [address] [place], [address], 07/05/2022 18:03:37 07/06/19 23 07/05/2022 CBC/C OMPLE TE BLD COUNT W/DIF F neutrophils, absolute count 2.46 x10'3 /uL 1.5-8. 0 Not Available [facility] (Lab) [address] [place], [address], 07/05/2022 18:03:37 07/06/19 23 07/05/2022 CBC/C OMPLE TE BLD COUNT W/DIF F lymphocytes, absolute count 1.77 x10'3 /uL 1.07-3 .43 Not Available [facility] (Lab) [address] [place], [address], 07/05/2022 18:03:37 07/06/19 23 07/05/2022 CBC/C OMPLE TE BLD COUNT W/DIF F monocytes, absolute count 0.57 x10'3 /uL 0.29-0 .99 Not Available [facility] (Lab) [address] [place], [address], 07/05/2022 18:03:37 07/06/19 23 07/05/2022 CBC/C OMPLE TE BLD COUNT W/DIF F eosinophils, absolute count 0.04 x10'3 /uL 0.02-0 .53 Not Available [facility] (Lab) [address] [place], [address], 07/05/2022 18:03:37 07/06/19 23 07/05/2022 CBC/C OMPLE TE BLD COUNT W/DIF F basophils, absolute count 0.04 x10'3 /uL 0.01-0 .08 Not Available [facility] (Lab) [address] [place], [address], 07/05/2022 18:03:37 07/06/19 23 07/05/2022 CBC/C OMPLE TE BLD COUNT W/DIF F immature granulocytes ,absolute 0.01 x10'3 /uL 0.00-0 .05 Not Available [facility] (Lab) [address] [place], [address], 07/05/2022 18:03:37 07/06/19 23 07/05/2022 CBC/C OMPLE TE BLD COUNT W/DIF F nucleated red blood cells 0.0 % -0 Not Available [facility] (Lab) [address] [place], [address], 07/05/2022 18:03:37 07/06/19 23 07/05/2022 CBC/C OMPLE TE BLD COUNT W/DIF F NRBC# 0.00 x10'3 /uL Not Available [facility] (Lab) [address] [place], [address], 07/05/2022 18:03:37 07/06/19 23 07/05/2022 LIPID PANEL cholesterol 124 mg/dL 140-19 9 low NIH HYACINTH NSUS RECOM MENDA TION FOR FAROOQ STERO L: ADULT CHILD LOW RISK: <200 <170 BORDE RLINE : <200- 239 ----- HIGH RISK: >240 >200 Not Available [facility] (Lab) [address] [place], [address], 07/05/2022 19:41:33 07/06/19 23 07/05/2022 LIPID PANEL triglyceride s 99 mg/dL 0-150 NIH HYACINTH NSUS REPOR T RECOM MENDA TION FOR TRIGL YCERI FAUZIA: ADULT CHILD LOW RISK: <150 ----- BODER LINE: 150-1 99 ----- HIGH RISK: >200 ----- Not Available [facility] (Lab) [address] [place], [address], 07/05/2022 19:41:33 07/06/1907/05/2022 LIPID PANEL HDL cholesterol 43 mg/dL 40- Not Available [facility] (Lab) [address] [place], [address], 07/05/2022 19:41:33 07/06/19 23 07/05/2022 LIPID PANEL LDL cholesterol, calculated 61 mg/dL 0-130 NIH HYACINTH NSUS REPOR T RECOM MENDA TIONS FOR LDL: ADULT CHILD LOW RISK <130 <110 (OPTI MAL LDL) <100 ----- BORDE RLINE : 130-1 59 ----- HIGH RISK: >160 >130 A TRIGL YCERI DE RESUL T >400 INVAL IDATE S THE CALCU LATIO N FOR LDL FRACT IONAT ION - THE LDL RESUL T WILL NOT BE REPOR ROGER. Not Available [facility] (Lab) [address] [place], [address], 07/05/2022 19:41:33 07/06/19 23 07/05/2022 COMPR EHENS EDDIE METAB OLIC PANEL sodium 139 mmol/ L 137-14 5 Not Available [facility] (Lab) [address] [place], [address], 07/05/2022 19:41:39 07/06/19 23 07/05/2022 COMPR EHENS EDDIE METAB OLIC PANEL potassium 4.7 mmol/ L 3.5-5. 1 Not Available [facility] (Lab) [address] [place], [address], 07/05/2022 19:41:39 07/06/19 23 07/05/2022 COMPR EHENS EDDIE METAB OLIC PANEL chloride 103 mmol/ L 98-107 Not Available [facility] (Lab) [address] [place], [address], 07/05/2022 19:41:39 07/06/19 23 07/05/2022 COMPR EHENS EDDIE METAB OLIC PANEL carbon dioxide 27 mmol/ L 22-30 Not Available [facility] (Lab) [address] [place], [address], 07/05/2022 19:41:39 07/06/19 23 07/05/2022 COMPR EHENS EDDIE METAB OLIC PANEL anion gap 13.7 mmol/ L 14-22 low Not Available [facility] (Lab) [address] [place], [address], 07/05/2022 19:41:39 07/06/1907/05/2022 COMPR EHENS EDDIE METAB OLIC PANEL glucose 84 mg/dL 70-99 Not Available [facility] (Lab) [address] [place], [address], 07/05/2022 19:41:39 07/06/19 23 07/05/2022 COMPR EHENS EDDIE METAB OLIC PANEL BUN 31 mg/dL 8-19 high Not Available [facility] (Lab) [address] [place], [address], 07/05/2022 19:41:39 07/06/19 23 07/05/2022 COMPR EHENS EDDIE METAB OLIC PANEL creatinine 0.88 mg/dL 0.66-1 .25 Not Available [facility] (Lab) [address] [place], [address], 07/05/2022 19:41:39 07/06/1907/05/2022 COMPR EHENS EDDIE METAB OLIC PANEL GFR >60 Refer ence Range : [place] ge GFR Healt hy Adult : >60 mL/mi n/1.7 3 m2 Chron ic Kidne y Disea se: 15-60 mL/mi n/1.7 3 m2 Kidne y Failu re: <15/m L/min /1.73 m2 www.n iddk. nih.g ov The MDRD study equat ion has not been valid ated in child nadia <18 years of age; pregn ant women ; the elder ly >85 years of age; or in some racia l or ethni c subgr oups, such as Hispa nics. Outsi de the valid ated sheridan eters , estim ated GFR is less accur ate, requi ring clini christa judgm ent on a case- by-ca se basis . Clini christa inter preta tion for other races and ages must be made by the clini hudson. The MDRD study equat ion has not been valid ated for the evalu ation of serum creat inine relat ed to nutri elise l statu s or medic ation usage . For perso ns <18 years of age, a pedia tric GFR calcu lator is avail able on the F websi te: https ://valerie w.kirby pedrozay.o rg/pr ofess ional s/kdo qi/gf r_cal culat or Not Available [facility] (Lab) [address] [place], [address], 07/05/2022 19:41:39 07/06/19 23 07/05/2022 COMPR EHENS EDDIE METAB OLIC PANEL alkaline phosphatase 70 U/L 38-126 Not Available [facility] (Lab) [address] [place], [address], 07/05/2022 19:41:39 07/06/19 23 07/05/2022 COMPR EHENS EDDIE METAB OLIC PANEL alanine aminotransfe rase 22 U/L 0-50 Not Available [facility] (Lab) [address] [place], [address], 07/05/2022 19:41:39 07/06/19 23 07/05/2022 COMPR EHENS EDDIE METAB OLIC PANEL aspartate aminotransfe rase 30 U/L 15-46 Not Available [facility] (Lab) [address] [place], [address], 07/05/2022 19:41:39 07/06/19 23 07/05/2022 COMPR EHENS EDDIE METAB OLIC PANEL bilirubin, total 1.80 mg/dL 0.20-1 .30 high Not Available [facility] (Lab) [address] [place], [address], 07/05/2022 19:41:39 07/06/19 23 07/05/2022 COMPR EHENS EDDIE METAB OLIC PANEL calcium 9.7 mg/dL 8.4-10 .2 Not Available [facility] (Lab) [address] [place], [address], 07/05/2022 19:41:39 07/06/19 23 07/05/2022 COMPR EHENS EDDIE METAB OLIC PANEL total protein 7.3 g/dL 6.3-8. 2 Not Available [facility] (Lab) [address] [place], [address], 07/05/2022 19:41:39 07/06/19 23 07/05/2022 COMPR EHENS EDDIE METAB OLIC PANEL albumin 4.5 g/dL 3.0-4. 4 high Not Available [facility] (Lab) [address] [place], [address], 07/05/2022 19:41:39 07/06/19 23 07/05/2022 COMPR EHENS EDDIE METAB OLIC PANEL globulin 2.8 g/dL 2.6-4. 2 Not Available [facility] (Lab) [address] [place], [address], 07/05/2022 19:41:39 07/06/19 23 07/05/2022 COMPR EHENS EDDIE METAB OLIC PANEL A/G ratio 1.6 ratio 1.0-2. 0 Not Available [facility] (Lab) [address] [place], [address], 07/05/2022 19:41:39 07/06/19 23 07/05/2022 PSA SCREE N PSA medicare screen 4.38 NG/mL 0.00-4 .00 high Not Available [facility] (Lab) [address] [place], [address], 07/05/2022 19:49:27 05/18/19 23 05/18/2022 CT, neck, soft tissu e, w/ contr ast [facility] [address] [place] [address] [phone] [facility] Name: MARVIN MALDONADO Access ion #: [id number] Sex: M : 1945 6 Locati on: RAD Attend ing Physic luis: ROSSI NOLASCO Orderi ng Physic luis: ROSSI NOLASCO Exam Date: 023 9:42 AM Exam Name: CT SOFT TISSUE NECK W Admitt ing Diagno sis(es ): RADIOL OGY REPORT - FINAL EXAM: CT SOFT TISSUE NECK W HISTOR Y: mass rt paroti d gland COMPAR EUGENE: None. TECHNI QUE: Helica l CT images of the neck were perfor med with intrav enous contra st. Sagitt al and saleh l reform atted images were obtain ed. This CT exam was perfor med using one or more of the follow ing dose reduct ion techni ques: Automa roger exposu re contro l, adjust ment of the mA and/or kV accord ing to patien t size, or use of iterat eddie recons tructi on techni que. A marker was positi oned over the palpab le area on the right. Dose: 100 ML Isovue 300. Page 1 of 3 [facility] MARV[facility] Access ion #: [id number] Sex: M : 1945 6 Exam Date: 023 9:42 AM Exam Name: CT SOFT TISSUE NECK W Admitt ing Diagno sis(es ): FINDIN GS: Nasoph arynx: Unrema rkable Oropha rynx: Unrema rkable Retrop haryng eal soft tissue s: Unrema rkable Hypoph arynx: Unrema rkable includ ing the epiglo ttis Larynx : Unrema rkable Trache a: Increa sed anteri or commercial loan reviewer ior diamet er, so-christa led sabre trache a, consis tent with emphys ematou s residu als. Lymph nodes: Small inflam matory size lymph nodes Soft tissue s: The palpab le abnorm ality correl ates with an otherw ise normal appear ing superf icial portio n of the left paroti d gland. Vascul ar: Unrema rkable Sinuse s: Aerate d Osseou s: Multil evel degene rative change s, no acute proces s Thyroi d: No mass Paroti d glands : Symmet alton bilate rally, see above. Page 2 of 3 [facility] Patien t Name: MARVIN MALDONADO Access ion #: [id number] Sex: M : 1945 6 Exam Date: 9:42 AM Exam Name: CT SOFT TISSUE NECK W Admitt ing Diagno sis(es ): Subman dibula r glands : Unrema rkable bilate rally. Lungs: Aerate d as visual ized IMPRES SHILOH: See above. Create d and electr onical ly signed by: John oshea MD Signed Date: 5:59 PM (CT) Dictat ed by: John oshea MD DD: 5:59 PM (CT) DT: 5:59 PM (CT) Page 3 of 3 [id number] [facility] (Imaging) [address] [place], [address], 05/23/2022 03:26:14 07/12/[address], lumba r spine , w/o contr ast [facility] [address] [place] [address] Patien t Name: MARVIN MALDONADO Access ion #: [id number] Sex: M : 1945 5 Locati on: RA2 Attend ing Physic luis: ROSSI NOLASCO [facility] Physic luis: ROSSI NOLASCO Exam Date: 023 8:10 AM Exam Name: CT L SPINE WO Admitt ing Diagno sis(es ): RADIOL OGY REPORT - FINAL EXAM: CT L SPINE WO HISTOR Y: Chroni c lower back pain histor y of [place] ma COMPAR EUGENE: Lumbar spine radiog raphic examin ation, 2018 TECHNI QUE: TECHNI QUE: 1 mm images are obtain ed of the lumbar spine. Images are obtain ed withou t intrav enous contra st, review ed in the saleh l, sagitt al, and axial planes , with bone window settin gs. This CT exam was perfor med using one or more of the follow ing dose reduct ion techni ques: Automa roger exposu re contro l, adjust ment of the mA and/or kV accord ing to patien t size, or use of iterat eddie recons tructi on techni que. Page 1 of 3 [facility] Patien t Name: MARVIN MALDONADO Access ion #: [id number] Sex: M : 1945 5 Exam Date: 023 8:10 AM Exam Name: CT L SPINE WO Admitt ing Diagno sis(es ): FINDIN GS: Bones: No fractu re or destru ctive proces s. Disc spaces : T12-L1 : Degene rative etiolo gy 2 mm retrol isthes is of T12 relati ve to L1 result ing in modera te centra l spinal stenos is. No destru ctive proces s. Neural forami nal stenos is, mild is noted bilate rally. Degene rative desicc ation hypert rophic disc space change s noted. Bilate ral prefor aminal stenos is is noted. L1-2: Signif icant loss of interv ertebr al disc space height noted with 4 mm degene rative etiolo gy retrol isthes is of L1 relati ve to L2 result ing in modera te centra l spinal stenos is.. Severe right and modera te left neural forami nal stenos is is noted. Bilate ral prefor aminal stenos is is noted. L2-3: Agriculture Extension Specialist ior osteop hyte format ion a bulgin g degene rate annulu s result s in modera te centra l spinal stenos is and right modera te neural forami nal stenos is. Bilate ral prefor aminal stenos is is noted. L3-4: Degene rative , hypert rophic change s are presen t with facet hypert rophy result ing in modera te to severe centra l spinal stenos is, severe left and mild right prefor aminal stenos is and mild-t o-mode rate bilate ral neural forami nal stenos is. L4-5: Bilate ral facet hypert rophic change s and a bulgin g degene rative annulu s are result ing in modera te to severe centra l spinal stenos is, severe bilate ral prefor aminal stenos is and with facet hypert rophic change s, severe right and Page 2 of [address] [facility] Patien t Name: MARVIN MALDONADO Access ion #: [id number] Sex: M : 1945 5 Exam Date: 8:10 AM Exam Name: CT L SPINE WO Admitt ing Diagno sis(es ): modera te to severe left neural forami nal stenos is. L5-S1: A degene rative bulgin g annulu s is noted with commercial loan reviewer ior osteop hyte format ion result ing in modera te to severe centra l spinal stenos is, severe bilate ral prefor aminal stenos is and modera te to severe bilate ral neural forami nal stenos is. Vascul ature: No aneury sm If clinic al sympto ms persis t, then MRI is recomm ended for furthe r evalua tion. IMPRES SHILOH: 1. See above. Create d and electr onical ly signed by: John oshea MD Signed Date: 9:36 AM (CT) Dictat ed by: John oshea MD DD: 9:36 AM (CT) DT: 9:36 AM (CT) Page 3 of 3 [facility] (Imaging) [address] [place], [address], 07/19/2022 09:02:49 11/09/19 23 XR, chest [facility] [address] [place] [address] Patien t Name: MARVIN MALDONADO Access ion #: [id number] Sex: M : 1945 7 Dictat ed By: Nicho Jackson Attend ing Physic luis: ROSSI NOLASCOi ng Physic luis: ROSSI NOLASCO Exam Date: 2022 15:35 PM Exam Name: XR CHEST 2V Admitt ing Diagno sis(es ): EXAM: XR CHEST 2V INDICA TION: 77 years old Male COMPAR EUGENE: None. FINDIN GS: The cardia c silhou ette is normal . There is no pulmon bob edema. The lungs are clear. Cardia c pacema ker is noted. There is no pneumo john. There is no pneumo thorax . There is no abnorm al foreig n body. IMPRES SHILOH: There is no acute abnorm ality. Electr onical ly Signed by: Nicho Jackson at 2022 16:17: 48 PM Page 1 [facility] (Imaging) [address] [place], [address], 12/13/2022 12:23:25 11/09/19 23 XR, ribs, unila teral , 3 or more view [facility] [address] [place] [address] [phone] [id number] Patien t Name: MARVIN MALDONADO Access ion #: [id number] Sex: M : 1945 7 Dictat ed By: Nicho Jackson Attend ing Physic luis: ROSSI NOLASCO ng Physic luis: ROSSI NOLASCO Exam Date: 2022 15:35 PM Exam Name: XR RIBS LT 2V Admitt ing Diagno sis(es ): Clinic al Indica tion: Rib pain Compar eugene: None FINDIN GS: Left Rib Series : The AP and obliqu e views of the ribs show no defini te rib fractu res. The costov ertebr al juncti ons are unrema rkable . There are no associ ated pleura l effusi ons or pneumo thorax . There are no underl gretta pulmon bob contus ions noted. If there is furthe r concer n, follow up radiog raphs or bone scan may be perfor med for comple te assess ment. IMPRES SHILOH: No acute rib fractu res. SL: [id number] Electr onical ly Signed by: Nicho Jackson at 2022 17:20: 50 PM Page 1 [facility] (Imaging) [address] [place], [address], 12/13/2022 12:23:19 Result Notes None recorded. Problems Name Problem SNOMED Code Status Onset Date Resolution Date Notes Provider Name and Address Organization Details Recorded Time Chest pain 40124025 Active 2022 Not Available [facility] 3 08:09:24 Pain in lower limb 34555279 Active Not Available [facility] 3 08:09:24 Mass of right breast 41333824567 319391 Active 2021 Not Available [facility] 3 08:09:24 Mass of right parotid gland 97290877756 466492 Active 2022 Not Available [facility] 3 08:09:24 Laborator y test result abnormal 241435716 Active 2021 Not Available [facility] 3 08:09:24 Mammograp hy abnormal 446153768 Active 2021 Not Available [facility] 3 08:09:24 Laceratio n of finger 025495641 Active Not Available [facility] 3 08:09:24 Jaw pain 329806582 Active 2022 Not Available [facility] 3 08:09:24 Low back pain 526059267 Active 2021 Not Available [facility] 3 08:09:24 Helm's neuroma of right foot 57823254818 9108 Active 2020 Not Available [facility] 3 08:09:24 Helm's neuroma of left foot 25516171712 9105 Active 2020 Not Available [facility] 3 08:09:24 Pain in right foot 96054222059 9107 Active 2021 Not Available [facility] 3 08:09:24 Bronchiti s 04470730 Active Not Available [facility] 3 08:09:24 Vitamin D deficienc y 68818957 Active Not Available [facility] 3 08:09:24 Sinusitis 79379074 Active Not Available [facility] 3 08:09:24 Dyslipide haydee 841739078 Active 2017 Not Available [facility] 3 08:09:24 Arthritis 1141135 Active 2021 Not Available [facility] 3 08:09:24 Acquired right hallux rigidus 04181909133 4100 Active 2020 Not Available [facility] 3 08:09:24 Shoulder pain 29152629 Active Not Available [facility] 3 08:09:24 Pain of left knee joint 39234915419 4107 Active 2022 Not Available [facility] 3 08:09:24 Foot pain 55693558 Active 2020 Not Available [facility] 3 08:09:24 Foot pain 31485029 Active 2021 Not Available [facility] [facility] 3 08:09:24 Atrial fibrillat ion 38228903 Active Not Available [facility] 3 08:09:24 Liver enzymes level above reference range 818525305 Active 2021 Not Available [facility] 3 08:09:24 COVID-19 537177882 Active 2021 Not Available [facility] 3 08:09:24 Fatigue 95715559 Active Not Available [facility] 3 08:09:24 Breast lump 03633371 Active 2021 Not Available [facility] 3 08:09:24 Gout 14208613 Active 2017 Not Available [facility] 3 08:09:24 Gout 39137817 Completed 201604/15/2016 Not Available [facility] 3 03:16:09 Pain in limb 35914441 Active Not Available [facility] 08:09:24 Notes:Some problems listed i n Document: #[id number] could not be added to this patient's chart. Please review this document and add these problems to the patient's chart manually as needed. Problem Notes None recorded. Procedures Surgical History Date Name Laterality Status Provider Name and Address Organization Details Recorded Time 07/06/19 Medicare Wellness CPT Code, subsequent completed Rosita Matthew RN CA - S MD [employer] [facility] 07/05/2022 14:27:30 06/28/19 21 Colonoscopy completed Not Available [facility] 05/24/19 03:08:08 01/23/20 18 mohs surgery completed Not Available [facility] 023 03:08:08 10/03/19 17 Cardiac Cath completed Not Available [facility] 023 03:08:08 11/08/19 16 Colonoscopy completed Not Available [facility] 05/24/19 03:08:08 10/12/19 10 Colonoscopy completed Not Available [facility] 05/24/19 03:08:08 Orthopedic Procedure completed Not Available [facility] 05/23/2022 03:08:08 Orthopedic Procedure completed Not Available [facility] 05/23/2022 03:08:08 Pacemaker completed Not Available [facility] 0 05/23/2022 03:08:08 Orthopedic Procedure completed Not Available [facility] 05/23/2022 03:08:08 Imaging Results Imaging Date Name Status LastModified by [facility] Details LastModified Time 05/18/2022 CT, neck, soft tissue, w/ contrast completed [id number] [facility] (Imaging) [address] [place], [address], 05/23/2022 03:26:14 07/11/2022 CT, lumbar spine, w/o contrast completed [facility] (Imaging) [address] [place], [address], 07/19/2022 09:02:49 11/08/2022 XR, chest completed [facility] (Imaging) [address] [place], [address], 12/13/2022 12:23:25 11/08/2022 XR, ribs, unilateral, 3 or more view completed [facility] (Imaging) [address] [place], [address], 12/13/2022 12:23:19 Procedure Notes None recorded. Medical Equipment None Reported. Allergies Allergen ID Allergen Name Allergen Category Reaction Reaction Severity Criticality Documentation Date Start Date Code Code System Note Provider Name and Address Organization Details Recorded Time 5791 iodine medicatio n Not available Not available Not available 05/23/2022 5933 RxNorm throa t swell ing Not Available [facility] 03:25:44 Medications Name Sig Start Date Stop Date Status Note LastModified by Organization Details LastModified Time celecoxib 200 mg capsule Take 1 capsule every day by oral route. active Not Available Not Available No t Available silver sulfadiazin e 1 % topical cream 08/27 completed Not Available Not Available Not Available atorvastati n 80 mg tablet TK 1 T PO D 05/05 completed Not Available Not Available Not Available prednisone 10 mg tablet 3 x 2 days; 2 x 2 days; 1 x 2 days active Not Available Not Available No t Available clindamycin HCl 300 mg capsule Take 1 capsule 3 times a day by oral route. active Not Available Not Available No t Available diphenhydra mine 50 mg capsule TK ONE C PO THE MORNING OF PROCEDURE 10/09 completed Not Available Not Available Not Available tizanidine 4 mg tablet Take 1 tablet every day by oral route as needed. active Not Available Not Available No t Available benzonatate 200 mg capsule Take 1 capsule 3 times a day by oral route. active Not Available Not Available No t Available ondansetron HCl 4 mg tablet 12/20 completed Not Available Not Available Not Available prednisone 20 mg tablet Take 2 tablets every day by oral route for 7 days. active Not Available Not Available No t Available fluorouraci l 5 % topical cream active Not Available Not Available Not Available Generlac 10 gram/15 mL oral solution 08/27 completed Not Available Not Available Not Available Zithromax Z-Marcello 250 mg tablet Take 1 dose pk by oral route as directed. active Not Available Not Available No t Available penicillin V potassium 500 mg tablet 10/01 completed Not Available Not Available Not Available clopidogrel 75 mg tablet TK 1 T PO D 09/02 completed Not Available Not Available Not Available valacyclovi r 500 mg tablet TAKE 1 TABLET BY MOUTH TWICE DAILY active Not Available Not Available No t Available ciprofloxac in 500 mg tablet 10/10 completed Not Available Not Available Not Available tramadol 50 mg tablet 10/10 completed Not Available Not Available Not Available cyclopentol ate 1 % eye drops INSTILL 1 DROP IN LEFT EYE THREE TIMES DAILY DIRECTED 02/14 completed Not Available Not Available Not Available Promethazin e VC-Codeine 6.25 mg-5 mg-10 mg/5 mL oral syrup 08/27 completed Not Available Not Available Not Available famotidine 20 mg tablet TAKE 1 TABLET BY MOUTH AT BEDTIME THE NIGHT BEFORE AND 1 TABLET THE MORNING OF PROCEDURE 11/30 completed Not Available Not Available Not Available aspirin 325 mg tablet,donald yed release 10/01 completed Not Available Not Available Not Available benzonatate 100 mg capsule 08/27 completed Not Available Not Available Not Available hydrocodone 7.5 mg-acetamin ophen 325 mg tablet 12/20 completed Not Available Not Available Not Available prednisone 2.5 mg tablet 09/30 completed Not Available Not Available Not Available cephalexin 500 mg capsule TK 1 C PO BID FOR 7 DAYS 06/14 completed Not Available Not Available Not Available oseltamivir 75 mg capsule TK 1 C PO BID FOR 5 DAYS 05/26 completed Not Available Not Available Not Available calcipotrie ne 0.005 % topical cream active Not Available Not Available Not Available prednisone 50 mg tablet TAKE 1 TABLET AT DINNER AND AT BEDTIME DAY BEFORE PROCEDURE AND 1 TABLET IN THE MORNING DAY OF PROCEDURE 07/05 completed Not Available Not Available Not Available polymyxin B sulfate 10,000 unit-trimet hoprim 1 mg/mL eye drops 02/14 completed Not Available Not Available Not Available indomethaci n 50 mg capsule Take 1 capsule every day by oral route. active Not Available Not Available No t Available Banophen 25 mg capsule TAKE 2 CAPSULES THE MORNING OF PROCEDURE 11/30 completed Not Available Not Available Not Available etodolac 400 mg tablet 08/27 completed Not Available Not Available Not Available montelukast 10 mg tablet 08/27 completed Not Available Not Available Not Available bisacodyl 5 mg tablet,donald yed release TAKE 6 TABLETS BY MOUTH AT 8 AM ON 06/27/202012/20 completed Not Available Not Available Not Available zolpidem 5 mg tablet 08/27 completed Not Available Not Available Not Available clobetasol 0.05 % topical ointment active Not Available Not Available Not Available cefuroxime axetil 500 mg tablet Take 1 tablet every 12 hours by oral route for 7 days. 12/26 completed Not Available Not Available Not Available levofloxaci n 500 mg tablet 08/27 completed Not Available Not Available Not Available albuterol sulfate HFA 90 mcg/actuati on aerosol inhaler INL 2 PFS PO Q 4 TO 6 H active Not Available Not Available No t Available Vitamin D2 1,250 mcg (50,000 unit) capsule Take 1 capsule every week by oral route. 10/10 completed Not Available Not Available Not Available colchicine 0.6 mg tablet TAKE 1 TABLET BY MOUTH TWICE DAILY FOR 3 DAYS THEN TAKE 1 TABLET BY MOUTH EVERY DAY FOR 1 WEEK 02/14 completed Not Available Not Available Not Available indomethaci n ER 75 mg capsule,ext ended release TAKE 1 CAPSULE BY MOUTH TWICE DAILY 05/10 completed Not Available Not Available Not Available fluticasone propionate 50 mcg/actuati on nasal spray,suspe nsion SHAKE LIQUID AND USE 1 SPRAY IN EACH NOSTRIL EVERY DAY active Not Available Not Available No t Available doxycycline hyclate 100 mg tablet Take 1 tablet twice a day by oral route for 10 days. active Not Available Not Available No t Available diazepam 5 mg tablet 12/20 completed Not Available Not Available Not Available amoxicillin 875 mg-potassiu m clavulanate 125 mg tablet 08/27 completed Not Available Not Available Not Available oxycodone 5 mg tablet 10/10 completed Not Available Not Available Not Available rosuvastati n 20 mg tablet TAKE 1 TABLET BY MOUTH DAILY AT BEDTIME active Not Available Not Available No t Available diclofenac 1 % topical gel 06/14 completed Not Available Not Available Not Available Zirgan 0.15 % eye gel APPLY A SMALL AMOUNT IN THE LEFT EYE 5 TIMES A DAY FOR 30 DAYS 11/30 completed Not Available Not Available Not Available Suprep Bowel Prep Kit 17.5 gram-3.13 gram-1.6 gram oral solution 12/20 completed Not Available Not Available Not Available Lotemax 0.5 % eye ointment APPLY SMALL AMOUNT IN LEFT EYE FOUR TIMES DAILY active Not Available Not Available No t Available Xarelto 20 mg tablet TAKE 1 TABLET BY MOUTH DAILY WITH THE EVENING MEAL active Not Available Not Available No t Available Myrbetriq 25 mg tablet,exte nded release active Not Available Not Available Not Available loteprednol etabonate 0.5 % eye gel drops INSTILL 1 DROP IN LEFT EYE FOUR TIMES DAILY 02/14 completed Not Available Not Available Not Available Virtussin AC 10 mg-100 mg/5 mL oral liquid TK 5 ML PO TID PRN COU 05/26 completed Not Available Not Available Not Available Paxlovid 300 mg (150 mg x 2)-100 mg tablets in a dose pack TK 2 NIRMATREL VIR TS AND 1 RITONAVIR T TOGETHER PO BID FOR 5 DAYS BID FOR 5 DAYS DIRECTED 07/05 completed Not Available Not Available Not Available Vitals Date Recorded Body height Body mass index (BMI) Body weight Body temperature Heart rate Systolic blood pressure Diastolic blood pressure Provider Name and Address Organization Details Last Updated DateTime 3 185.42 cm 28.6 kg/m2 03488.5 4 g 97.7 [degF] 72 /min 132 mm[Hg] 80 mm[Hg] CASIE Hopper [facility] [employer] [facility] 3 14:17:42 Date Recorded Pain severity - 0-10 verbal numeric rating [Score] - Reported Provider Name and Address Organization Details Last Updated DateTime 07/05/2022 7 Rosita Matthew RN [facility] [employer] [facility] 07/05/2022 14:27:46 Date Recorded Body height Body mass index (BMI) Body weight Body temperature Systolic blood pressure Diastolic blood pressure Provider Name and Address Organization Details Last Updated DateTime 3 185.42 cm 28.4 kg/m2 18215.3 6 g 98 [degF] 122 mm[Hg] 80 mm[Hg] Coreen harvey RN [facility] [employer] [facility] 3 14:10:23 Date Recorded Body height Body mass index (BMI) Body weight Body temperature Heart rate Systolic blood pressure Diastolic blood pressure Provider Name and Address Organization Details Last Updated DateTime 3 185.42 cm 28.4 kg/m2 49657.3 6 g 98 [degF] 83 /min 134 mm[Hg] 70 mm[Hg] Coreen harvey RN [place] - [facility] MD [employer] [facility] 3 14:53:25 Date Recorded Body mass index (BMI) Body height Heart rate Body temperature Body weight Systolic blood pressure Diastolic blood pressure Provider Name and Address Organization Details Last Updated DateTime 3 30.7 kg/m2 185.42 cm 60 /min 98.5 [degF] 102305. 02 g 122 mm[Hg] 74 mm[Hg] Not Available [facility] 3 03:12:39 Date Recorded Body mass index (BMI) Body height Heart rate Body temperature Body weight Systolic blood pressure Diastolic blood pressure Provider Name and Address Organization Details Last Updated DateTime 3 29.6 kg/m2 185.42 cm 72 /min 97.7 [degF] 196158. 69 g 126 mm[Hg] 76 mm[Hg] Not Available [facility] 3 03:12:39 Social History Question Answer Notes LastModified by Organization Details LastModified Time Tobacco Smoking Status Never Smoker Not Available [facility] 05/23/2022 02:54:48 Do You Have An Advance Directive? Yes MIGRATION.0301 [id number] Information not available 05/23/2022 What Is Your Level Of Alcohol Consumption? None MIGRATION.0301 665736 Information not available 05/23/2022 Are You Blind Or Do You Have Difficulty Seeing? Yes Wears Glasses Information not available 11/01/2022 What Is Your Level Of Caffeine Consumption? Moderate MIGRATION.0301 [id number] Information not available 05/23/2022 How Much Tobacco Do You Chew? None MIGRATION.0301 067499 Information not available 05/23/2022 In The 14 Days Before Symptom Onset, Have You Had Close Contact With A Laboratory-confi ed COVID-19 While That Case Was Ill? No MIGRATION.0301 157043 Information not available 05/23/2022 In The 14 Days Before Symptom Onset, Have You Had Close Contact With A Person Who Is Under Investigation For COVID-19 While That Person Was Ill? No MIGRATION.0301 843689 Information not available 05/23/2022 Are You Currently Employed? No Information not available 11/01/2022 Are You Deaf Or Do You Have Serious Difficulty Hearing? Yes Wears Hearing Aids MIGRATION.0301 [id number] Information not available 05/23/2022 What Type Of Diet Are You Following? REGULAR MIGRATION.0301 068449 Information not available 05/23/2022 Which Illicit Or Recreational Drugs Have You Used? None MIGRATION.0301 349891 Information not available 05/23/2022 Do You Or Have You Ever Used E-cigarettes Or Vape? Never Used Electronic Cigarettes MIGRATION.0301 975674 Information not available 05/23/2022 What Is The Highest Grade Or Level Of School You Have Completed Or The Highest Degree You Have Received? [id number] MIGRATION.030 891770 Information not available 05/23/2022 What Is Your Occupation? Retired MIGRATION.0301 361520 Information not available 05/23/2022 Have There Been Any Changes To Your Family Or Social Situation? No MIGRATION.0301 586336 Information not available 05/23/2022 What Is The Fluoride Status Of Your Home? Unknown MIGRATION.0301 503458 Information not available 05/23/2022 Do You Use Insect Repellent Routinely? Yes MIGRATION.0301 362126 Information not available 05/23/2022 Where Do You Live? [facility] MIGRATION.0301 033460 Information not available 05/23/2022 Do You Have A Medical Power Of Home Lending Officer? Yes MIGRATION.0301 043339 Information not available 05/23/2022 What Was The Date Of Your Most Recent Tobacco Screening? 11/08/2022 Information not available 11/08/2022 Do You Have Any Pets? No MIGRATION.0301 406512 Information not available 05/23/2022 What Is Your Relationship Status? MIGRATION.0301 506317 Information not available 05/23/2022 Do You Use Your Seat Belt Or Car Seat Routinely? Yes MIGRATION.0301 501338 Information not available 05/23/2022 Do You Have Smoke And Carbon Monoxide Detectors In Your Home? Yes MIGRATION.0301 233710 Information not available 05/23/2022 Are You Passively Exposed To Smoke? No MIGRATION.0301 783303 Information not available 05/23/2022 Do You Or Have You Ever Used Smokeless Tobacco? Never Used Smokeless Tobacco MIGRATION.0301 204480 Information not available 05/23/2022 Are There Any Smokers In Your House? No MIGRATION.0301 329367 Information not available 05/23/2022 How Much Tobacco Do You Smoke? No MIGRATION.0301 533803 Information not available 05/23/2022 What Types Of Sporting Activities Do You Participate In? None MIGRATION.0301 325265 Information not available 05/23/2022 Do You Feel Stressed (tense, Restless, Nervous, Or Anxious, Or Unable To Sleep At Night)? [id number] MIGRATION.0301 651820 Information not available 05/23/2022 Do You Use Any Illicit Or Recreational Drugs? No MIGRATION.0301 478616 Information not available 05/23/2022 Do You Use Sunscreen Routinely? Yes MIGRATION.0301 213226 Information not available 05/23/2022 Has Tobacco Cessation Counseling Been Provided? No Not Needed-ne gabo Smoked MIGRATION.0301 836089 Information not available 05/23/2022 How Many Years Have You Smoked Tobacco? 0 MIGRATION.0301 067596 Information not available 05/23/2022 Have You Recently Traveled Abroad? No MIGRATION.0301 661835 Information not available 05/23/2022 Do You Have Any Dietary Restrictions? No MIGRATION.0301 167207 Information not available 05/23/2022 Do You Or Have You Ever Used Any Other Forms Of Tobacco Or Nicotine? No MIGRATION.0301 068933 Information not available 05/23/2022 Sex: Male Functional Status Question Answer Note LastModified by Organizat ion Details LastModified Time Do you have difficulty walking or climbing stairs? No MIGRATION.9123782 026 Information not available 05/23/2022 Do you have transportation difficulties? No MIGRATION.5543212 026 Information not available 05/23/2022 Are you able to walk? YESWOREST MIGRATION.7056582 026 Information not available 05/23/2022 Do you have difficulty doing errands alone? No MIGRATION.9390510 026 Information not available 05/23/2022 Are you able to care for yourself? Yes MIGRATION.2217174 026 Information not available 05/23/2022 Do you have difficulty dressing or bathing? No MIGRATION.8215932 026 Information not available 05/23/2022 What is your exercise level? Heavy MIGRATION.8979017 026 Information not available 05/23/2022 Mental Status Question Answer Note LastModified by Organizat ion Details LastModified Time Do you have difficulty concentrating, remembering or making decisions? No MIGRATION.[id number] 6 Information not available 05/23/2022 Family History Relationship Description Onset Age of this Age Resolved Age Notes LastModified by Organization Details LastModified Time Mother Cerebrovascu lar accident MIGRATION.122 [id number] Not available 05/23/2022 03:08:13 Father Malignant neoplastic disease MIGRATION.631 [id number] Not available 05/23/2022 03:08:13 Medical History Condition Response NERVE DISEASE N BLINDNESS N RHEUMATIC FEVER N KIDNEY STONES N BLADDER PROBLEMS N OTHER # 1 N POLIO N LUNG DISEASE/DISORDER N RADIATION / CHEMOTHERAPY N COPD N Other # 2 N BLOOD DISEASES N SURGERY N EAR OR HEARING PROBLEMS N MUMPS N BOWEL PROBLEMS N DEPRESSION (INCLUDING POST ) N STROKE/TIA N ULCERS N BENIGN PROSTATIC HYPERPLASIA N MEASLES N MYOCARDIAL INFARCTION N OBESITY N GERD/NAUSEA N ANEURYSM N URINARY/BLADDER/KIDNEY PROBLEMS N INPATIENT PSYCH CARE N CORONARY ARTERY DISEASE (CAD) N ADDICTION CONCERNS N ENDOMETRIOSIS N Impotence N USE OF BLOOD THINNERS Y SKIN PROBLEMS N GASTROINTESTINAL DISORDER N PERIPHERAL VASCULAR DISEASE N MUSCLE,JOINT OR BONE PROBLEMS N GASTROINTESTINAL BLEEDING N BLOOD CLOTS N ASTHMA N CATARACTS N ERECTILE DYSFUNCTION N VARICOSITIES N GI PROBLEMS N Low Testosterone N INFERTILITY N AIDS/HIV N CHEMOTHERAPY / RADIATION N LIVER DISEASE N MALE HYPOGONADISM N HYPERTENSION N Deficiency Y ANXIETY DISORDER N BLOOD TRANSFUSION N ANEMIA/BLOOD DISORDER N CHRONIC EAR INFECTIONS N BRONCHITIS Y TUBERCULOSIS N GLAUCOMA N FOOT PROBLEM N DIVERTICULITIS N SLEEP APNEA N CHICKENPOX N INFECTIOUS DISEASE N HEART ARRHYTHMIA N PROSTATE N INSOMNIA N HIGH CHOLESTEROL / HYPERLIPIDEMIA Y HYPERTHYROIDISM N EYE PROBLEMS N NEUROLOGICAL PROBLEMS N EDEMA N CHRONIC PAIN SYNDROME N HYPOTHYROIDISM N CAROTID BLOCKAGE N CONSTIPATION N BACK / NECK PROBLEMS N HAVE YOU BEEN HOSPITALIZED OR SEEN IN [facility] IN THE PAST YEAR ? N ATHEROSCLEROSIS N BREAST PROBLEMS N DIALYSIS N ECZEMA N OSTEOPOROSIS N ARTHRITIS N APPENDICITIS N DIABETES, TYPE N BAD TEETH N ENT N HEARTBURN / REFLUX N AUTISM SPECTRUM DISORDER (ASD) N HEPATITIS / LIVER DISEASE N PULMONARY DISEASE N GOUT Y SLEEP DISORDER N ALZHEIMER'S DISEASE N Brain Problems N HERPES N DEMENTIA N HEADACHES/MIGRAINES N SEIZURES/EPILEPSY N VASCULAR DISEASE N PACEMAKER N Blood Disorder N DIZZINESS N HEART DISEASE/HEART PROBLEMS N KIDNEY DISEASE N MULTIPLE SCLEROSIS N CARDIAC ARRHYTHMIA N CANCER: SPECIFY Y ANESTHESIA COMPLICATIONS N ATRIAL FIBRILLATION Y Gall Stones N PULMONARY EMBOLISM N AUTOIMMUNE DISEASE N Immunizations Vaccine Type Date Status Note Provider Nam e and Address Organization Details Recorded Time COVID-19, mRNA, LNP-S, PF, 30 mcg/0.3 mL dose 1 completed Not Available [facility] 11/09/2022 08:09:25 COVID-19, mRNA, LNP-S, PF, 30 mcg/0.3 mL dose 1 completed Not Available [facility] 11/09/2022 08:09:25 COVID-19, mRNA, LNP-S, PF, 30 mcg/0.3 mL dose 1 completed Not Available [facility] 11/09/2022 08:09:25 influenza, unspecified formulation 5 completed Not Available [facility] 11/09/2022 08:09:25 pneumococcal polysaccharide PPV23 4 completed Not Available [facility] 11/09/2022 08:09:25 Influenza, high-dose, quadrivalent, PF 1 completed Not Available [facility] 11/09/2022 08:09:25 Influenza, split virus, quadrivalent, PF 9 completed Not Available [facility] 11/09/2022 08:09:25 Influenza, high-dose, trivalent, PF 8 completed Not Available [facility] 11/09/2022 08:09:25 Influenza, high-dose, trivalent, PF 6 completed Not Available [facility] 11/09/2022 08:09:25 Influenza, high-dose, trivalent, PF 7 completed Not Available [facility] 11/09/2022 08:09:25 tetanus toxoid, adsorbed 4 completed Not Available [facility] 11/09/2022 08:09:25 Pneumococcal conjugate PCV 13 5 completed Not Available [facility] 11/09/2022 08:09:25 Past Encounters Encounter ID Performer Location Encounter Start Date Encounter Closed Date Diagnosis/Indication Diagnosis SNOMED-CT Code Diagnosis ICD10 Code Diagnosis Note [id number] [facility] [place] [address] , [place] [address] 06/14/2020 00:00:00 06/14/2020 22:47:02 [id number] [facility] [place] [address] [place] [address] 10/10/2020 00:00:00 10/11/2020 09:14:43 [id number] [facility] [place] [address] [facility] [address] , [place] [address] 12/20/2020 00:00:00 12/20/2020 22:34:53 [id number] [facility] [place] [address] [place] [address] 01/02/2021 00:00:00 01/03/2021 13:20:35 [id number] [facility] [place] [address] , [place] [address] 06/08/2021 00:00:00 06/25/2021 23:10:21 [id number] [facility] [place] [address] , [place] [id number] 11/30/2021 00:00:00 12/10/2021 11:25:44 [id number] [facility] Internal [facility] [address]vais, [address] [address] 02/14/2022 00:00:00 02/15/2022 13:03:59 [id number] [facility] [place] [address] [facility] [address] , [place] [address] 03/06/2022 00:00:00 03/16/2022 22:10:43 [id number] [facility] [address] Danyelle Davis, [address] [address] 04/16/2022 00:00:00 04/16/2022 21:26:17 [id number] [facility] [place] [facility] [address] , [facility] [address] [place] [address] 04/20/2022 00:00:00 04/20/2022 21:26:55 [id number] [facility] [place] [address] [facility] [place] [address] 05/10/2022 00:00:00 05/12/2022 23:09:16 [id number] Castillo Nolasco MD [facility] Internal Med [place] [address] [place] [address] [place] [address] 07/05/2022 14:07:25 07/05/2022 14:47:13 Adult health examination [id number] Z00.00 Screening for disorder 766441167 Z13.9 Low back pain 636959483 M54.50 Dyslipidemia 282294121 E 78.5 Screening for malignant neoplasm of prostate [id number] Z12.5 Long-term drug therapy [id number] Z79.899 Gout [id number] M10.9 [id number] Castillo Nolasco MD [facility] Internal Med Meena rochae [address] [place] [address] [place] [address] 11/01/2022 13:57:00 11/01/2022 14:21:19 Dyslipidemia [id number] E78.5 Gout [id number] M10.9 Atrial fibrillation [phone] I48.91 [id number] Castillo Nolasco MD [facility] Internal Med Meena lljenny [address] [place] [address] [place] [address] 11/08/2022 14:44:56 11/08/2022 15:53:29 Chest pain [id number] R07.9 Health Concerns Section Related Observation LastModified by Organization Detai ls LastModified Time None Recorded Concern Status LastModified by Organization Details LastModified Time None Recorded Advance Directives Directive Y: Payers Encounter Date Sequence Insurance Name Policy Number Policy Horta Covered Member ID Horta Member ID Guarantor Name 07/05/2022 1 [facility] (MEDICARE REPLACEMENT/A DVANTAGE - PPO) [id number] Marvin Anna Joel [id number] Marvin Anna Joel 11/01/2022 1 [facility] (MEDICARE REPLACEMENT/A DVANTAGE - PPO) [id number] Marvin Anna Joel [id number] Marvin Anna Joel 11/08/2022 1 [facility] (MEDICARE REPLACEMENT/A DVANTAGE - PPO) [id number] Marvin Anna Joel [id number] Marvin Anna Joel Notes Date Note Type Note Provider Name and Address Organization Details Recorded Time 07/05/2022 text/html Longstanding low back pain no betterDyslipidemia does try to follow dietGout no red hot swollen jointsAtrial fibrillation appears to be stableAnnual wellness completed Castillo Nolasco MD [address], [place], [address], [email or web address] 07/14/2022 22:07:05 11/01/2022 text/html AFib doing fine bruises with the Xarelto. Dyslipidemia tries to follow low-fat dieting rosuvastatin no side effects. Gout no red hot swollen joints. Chronic low back pain he is seeing pain management get epidurals. Elevated PSA he does see Urology and he is following up with them Castillo Nolasco MD [address], [place], [address], [email or web address] 11/01/2022 14:41:26 11/08/2022 text/html Ground level fal l mechanical pain left side chest no dizziness neck pain was not knocked out no shortness of breaths Castillo Nolasco MD [address], [place], [address], [employer] 11/08/2022 22:51:21
--- OUTSIDE RECORDS SUMMARY | 2024-06-17 07:16 | XMS_ITS | Encounter Summary ---
Author Organization [facility] Address [address] [facility] [place] [address] Care Team Providers Care Vat House Supervisor Name Role Phone Unavailable Primary Care Provider Unavailabl e Encounter Details Date Type Department Care Team (Late st Contact Info) Description 02/12/2024 Lab Requisition [facility] - DermPath Lab [address] [facility] [place] [phone] Romeo Orr MD [address] [place] [address] Social History Tobacco Use Types Packs/Day Years Used Date Smoking Tobacco: Never Assessed Sex and Gender Information Value Date Recorded Sex Assigned at Not on file Gender Identity Not on file Sexual Orientation Not on file documented as of this encounter Plan of Treatment Not on file documented as of this encounter Procedures Procedure Name Priority Date/Time Associated Diagnosis Comments DERMATOPATHOLOGY Routine 02/11/2024 12:0 0 AM ACADEMIC REGISTRAR documented in this encounter Results * DERMATOPATHOLOGY (02/11/2024 12:00 AM ACADEMIC REGISTRAR) Case Report Dermatopathology Report Case: [id number] Authorizing Provider: Romeo Orr MD Collected: 02/11/2024 12:00 AM Ordering Location: [facility] - Received: 02/12/2024 01:42 PM DermPath Lab Pathologist: Parris Willis MD Specimen: Skin, left upper back 4 3:00 PM ACADEMIC REGISTRAR DERMATOPATHOLOGY LABORATORY Final Diagnosis Specimen A. SKIN, left upper back: BASAL CELL CARCINOMA, NODULAR TYPE (C44.519) NOT PRESENT AT SAMPLED MARGIN 4 3:00 PM ACADEMIC REGISTRAR DERMATOPATHOLOGY LABORATORY Clinical History R/O BCC Check margins 3:00 PM [facility] [[email or web address]] DERMATOPATHOLOGY LABORATORY Gross Description Specimen A: Received is one formalin filled container labeled with the patients name and designated left upper back. The specimen consists of a shave removal measuring 27w39i6 mm. Jar 0. 3:00 PM [facility] [[email or web address]] DERMATOPATHOLOGY LABORATORY Microscopic Description Specimen A. SKIN, left upper back: Within the dermis there are aggregates of basaloid cells with a high nuclear to cytoplasmic ratio and peripheral palisading. This lesion is present at the margin of the specimen. 4 3:00 PM [facility] [[email or web address]] DERMATOPATHOLOGY LABORATORY Disclaimer An external and internal positive and negative controls are appropriate for the histochemical, immunohistochemical and immunofluorescence stain(s) in this case (if any), except where stated explicitly. The performance characteristics of the stain(s) cited in this report were developed and its performance characteristic determined by the Dermatopathology Laboratory at [facility], directed by Dr. Jj Martinez. These tests need not be, and therefore are not, approved by the [place] Food and Drug Administration. The tests are used for clinical purposes. Billing Codes Specimen Charges Stain Charges 68573 1 3:00 PM [facility] [[email or web address]] DERMATOPATHOLOGY LABORATORY Embedded Images 3:00 PM [facility] [[email or web address]] DERMATOPATHOLOGY LABORATORY Pathology/Cytolog y TISSUE SPECIMEN FROM SKIN / Unknown 02/11/2024 02/12/2024 1:42 PM ACADEMIC REGISTRAR Romeo Orr MD LAB - PATHOLOGY/CYTO LOGY ORDERABLES DERMATOPATHOLOGY LABORATORY [facility] - Department of Dermatology [address], [address] [phone] documented in this encounter Visit Diagnoses Not on filedocumented in this encounter
--- OUTSIDE RECORDS SUMMARY | 2024-06-17 07:16 | XMS_ITS | Encounter Summary ---
Author Organization [facility] Address [address] [place] [address] Phone Care Team Providers Care Intelligence Clerk Name Role Phone Castillo Nolasco MD Primary Care Provider [phone] Felipe Brothers DPT Unavailable [place] Montana MD Primary Care Provider [phone] Encounter Details Date Type Department Care Team (Latest Contact Info) Description 11/29/2018 Orders Only [facility] Scanning, Provider Social History Tobacco Use Types Packs/Day Years Used Date Smoking Tobacco: Never Smokeless Tobacco: Never Alcohol Use Standard Drinks/Week Comments Never 0 (1 standard drink = 0.6 oz pur e alcohol) AUDIT-C Answer Date Recorded Frequency of Alcohol Consumption Never 08/05/2018 Average Number of Drinks Not on file 019 Frequency of Binge Drinking Not on file 07/23 Sex and Gender Information Value Date Recorded Sex Assigned at Not on file Legal Sex Male 1:27 PM INSURANCE COMPLIANCE ANALYST Gender Identity Not on file Sexual Orientation Not on file Occupation Industry Job Start Date Job End Date [employer] Not on file Not on file Not on filippo e documented as of this encounter Plan of Treatment Not on file documented as of this encounter Procedures Procedure Name Priority Date/Time Associated Diagnosis Comments SCAN - RADIOLOGY/IMAGING 11/29/2018 documented in this encounter Results * SCAN - RADIOLOGY/IMAGING (11/29/2018) Anatomical Region Laterality Modality Other us Provider Scanning Final Result documented in this encounter Visit Diagnoses Not on filedocumented in this encounter Care Teams Intelligence Clerk Relationship Specialty Start Date End Date Castillo Nolasco MD PCP - General 05/14/16 03/31/23 Pelon Montana MD [address] [place] [id number] PCP - General Internal Medicine 04/01/23 Felipe Brothers DPT [address] [place] [address] Physical Therapist Physical Therapy 04/01/19 07/01/19 documented as of this encounter
--- OUTSIDE RECORDS SUMMARY | 2024-06-17 07:16 | XMS_ITS | Encounter Summary ---
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, including hip Social History Tobacco Use Types Packs/Day Years Used Date Smoking Tobacco: Never Assessed Sex and Gender Information Value Date Recorded Sex Assigned at Not on file Gender Identity Not on file Sexual Orientation Not on file documented as of this encounter Plan of Treatment Not on file documented as of this encounter Procedures Procedure Name Priority Date/Time Associated Diagnosis Comments DERMATOPATHOLOGY Routine 05/30/2023 12:0 0 AM MACHINIST 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 SKIN, right lateral superior lower leg: DERMAL SCAR RESIDUAL SQUAMOUS CELL CARCINOMA NOT IDENTIFIED (L90.5) Specimen B. SKIN, right lateral lower leg: DERMAL SCAR RESIDUAL SQUAMOUS CELL CARCINOMA NOT IDENTIFIED (L90.5) 4 1:26 PM [facility] DERMATOPATHOLOGY LABORATORY Clinical History A-B: Squamous Cell Carcinoma. Check margins. 4 1:26 PM [facility] DERMATOPATHOLOGY LABORATORY Gross Description Specimen A: Received is one formalin filled container labeled with the patient's name and designated right lateral superior lower leg. The specimen consists of a non-oriented ellipse of skin measuring 07m60c6 mm. The epidermal surface is unremarkable. The margin is inked green. The 12 o'clock and 6 o'clock tips are submitted in cassette 1. The remainder of the ellipse is serially sectioned and submitted in cassette 2-3. Jar 0. Specimen B: Received is one formalin filled container labeled with the patient's name and designated right lateral lower leg. The specimen consists of a non-oriented ellipse of skin measuring 79d29m7 mm. The epidermal surface is unremarkable. The margin is inked green. The 12 o'clock and 6 o'clock tips are submitted in cassette 1. The remainder of the ellipse is serially sectioned and submitted in cassette 2-3. Jar 0. 4 1:26 PM [facility] DERMATOPATHOLOGY LABORATORY Microscopic Description Specimen A. SKIN, right lateral superior lower leg: There are fibroblasts and collagen bundles oriented parallel to the skin surface. There are elongated blood vessels, some of which are oriented perpendicular to the skin surface. No residual squamous cell carcinoma is identified. Specimen B. SKIN, right lateral lower leg: There are fibroblasts and collagen bundles oriented parallel to the skin surface. There are elongated blood vessels, some of which are oriented perpendicular to the skin surface. No residual squamous cell carcinoma is identified. 4 1:26 PM [facility] DERMATOPATHOLOGY LABORATORY Disclaimer An external and internal positive and negative controls are appropriate for the histochemical, immunohistochemical and immunofluorescence stain(s) in this case (if any), except where stated explicitly. The performance characteristics of the stain(s) cited in this report were developed and its performance characteristic determined by the Dermatopathology Laboratory at [facility], directed by Dr. Jj Martinez. These tests need not be, and therefore are not, approved by the [place] Food and Drug Administration. The tests are used for clinical purposes. Billing Codes Specimen Charges Stain Charges 22894 54107 1 1 4 1:26 PM CDT DERMATOPATHOLOGY LABORATORY Embedded Images 1:26 PM CDT DERMATOPATHOLOGY LABORATORY Pathology/Cytology TISSUE SPECIMEN FROM SKIN / Unknown 05/30/2023 05/31/2023 12:20 PM MACHINIST Miscellaneous samples (specimen) TISSUE SPECIMEN FROM SKIN / Unknown 05/30/2023 05/31/2023 12:20 PM MACHINIST Jalen Moreno MD LAB - PATHOLOGY/CYTO LOGY ORDERABLES DERMATOPATHOLOGY LABORATORY [facility] - Department of Dermatology [facility] Medicine [address] [place] [address], [address] [phone] documented in this encounter Visit Diagnoses Diagnosis 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
--- OUTSIDE RECORDS SUMMARY | 2024-06-17 07:16 | XMS_ITS | Clinical Summary ---
Author Organization [facility] Address [address] [place] [address] Care Team Providers Care Game Breeding Farm Manager Name Role Phone Unavailable Primary Care Provider Unavailabl e Source Comments [facility],non-owned Affiliates and Associated Physician Practices is amultiple site organization consisting of ambulatory clinics and hospital sitesin [place], [place], [place] and [place]. This disclosure is being madepursuant to the Care Everywhere program and may not contain all information available regarding this patient. Last updated 17.[facility] [employer] Social History Tobacco Use Types Packs/Day Years Used Date Smoking Tobacco: Never Assessed Sex and Gender Information Value Date Recorded Sex Assigned at Not on file Gender Identity Not on file Sexual Orientation Not on file Plan of Treatment Health Maintenance Due Date Last Done Comments HEPATITIS C SCREENING 09/13/1964 DTAP/TDAP/TD VACCINES (1 - Tdap) 1965 PNEUMOCOCCAL VACCINE 50+ (1 of 1 - PCV) 1996 ZOSTER VACCINE (1 of 2) 1996 Respiratory Syncytial Virus (RSV) Vaccine Pt: or over 60 yrs (1 - 1-dose 75+ series) 2021 COVID-19 VACCINE ( - 2023-2 5 season) 2023 INFLUENZA VACCINE (#1) 2023 DEPRESSION SCREENING 03/25/2024 MEDICARE AWV CALENDAR YEAR 2024 HEPATITIS B VACCINE Aged Out No longe r eligible based on patient's age to complete this topic HIB VACCINE Aged Out No longer eligi ble based on patient's age to complete this topic HPV VACCINE Aged Out No longer eligi ble based on patient's age to complete this topic MENINGOCOCCAL (Group B) VACC INE SHARED DECISION-MAKING Aged Out No longer eligibl e based on patient's age to complete this topic MENINGOCOCCAL GROUPS A/C/Y/W VACCINE Aged Out No longer eligible b ased on patient's age to complete this topic
--- OUTSIDE RECORDS SUMMARY | 2024-06-17 07:16 | XMS_ITS | Encounter Summary ---
Author Organization [facility] Address [address] [facility] [address] Care Team Providers Care Real Estate Rep Name Role Phone Unavailable Primary Care Provider Unavailabl e Encounter Details Date Type Department Care Team (Late st Contact Info) Description 02/19/2023 Lab Requisition [facility] - DermPath Lab [address] [facility] [place] [phone] Romeo Orr MD [address] [place] [address] Social History Tobacco Use Types Packs/Day Years Used Date Smoking Tobacco: Never Assessed Sex and Gender Information Value Date Recorded Sex Assigned at Not on file Gender Identity Not on file Sexual Orientation Not on file documented as of this encounter Plan of Treatment Not on file documented as of this encounter Procedures Procedure Name Priority Date/Time Associated Diagnosis Comments DERMATOPATHOLOGY Routine 02/18/2023 12:0 0 AM RADIO INSTALLER AUTOMOBILE documented in this encounter Results * DERMATOPATHOLOGY (02/18/2023 12:00 AM RADIO INSTALLER AUTOMOBILE) Case Report Dermatopathology Report Case: [id number] Authorizing Provider: Romeo Orr MD Collected: 02/18/2023 12:00 AM Ordering Location: [facility] DermPath Lab Received: 02/19/2023 02:02 PM Pathologist: Sybil Trotter MD Specimens: A) - Skin, right lateral superior lower leg B) - Skin, right lateral lower leg C) - Skin, left anterior lateral lower leg above ankle 3:59 PM RADIO INSTALLER [employer]LE DERMATOPATHOLOGY LABORATORY Final Diagnosis Specimen A. 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 SKIN, right lateral lower leg: SUPERFICIAL (FOCALLY INVASIVE) SQUAMOUS CELL CARCINOMA ARISING IN AN ACTINIC KERATOSIS (C44.722) Specimen C. SKIN, left anterior lateral lower leg above ankle: SEBORRHEIC KERATOSIS, CLONAL TYPE (L82.1) 3 3:59 PM [facility] DERMATOPATHOLOGY LABORATORY Clinical History A-C: R/O BCC 3 3:59 PM [facility] DERMATOPATHOLOGY LABORATORY Gross Description Specimen A: Received is one formalin filled container labeled with the patient's name and designated right lateral superior lower leg. The specimen consists of a shave biopsy measuring 10x8x1 mm. Jar 0. Specimen B: Received is one formalin filled container labeled with the patient's name and designated right lateral lower leg. The specimen consists of a shave biopsy measuring 10x8x1 mm. Jar 0. Specimen C: Received is one formalin filled container labeled with the patient's name and designated left anterior lateral lower leg above ankle. The specimen consists of a shave biopsy measuring 10x7x2 mm. Jar 0. 3 3:59 PM [facility] DERMATOPATHOLOGY LABORATORY Microscopic Description Specimen A. SKIN, right lateral superior lower leg: Sections reveal parakeratosis, acanthosis and keratinocyte dysmaturation which is most prominent in the lower epidermis. Focal nests are present in the dermis. Specimen B. SKIN, right lateral lower leg: Sections reveal parakeratosis, acanthosis and keratinocyte dysmaturation which is most prominent in the lower epidermis. Focal nests are present in the dermis. Specimen C. SKIN, left anterior lateral lower leg above ankle: Sections show a proliferation of keratinocytes with overlying hyperkeratosis. Aggregates of keratinocytes with abundant pale-staining cytoplasm appear demarcated from surrounding basaloid keratinocytes. 3 3:59 PM [facility] DERMATOPATHOLOGY LABORATORY Disclaimer An external and internal positive and negative controls are appropriate for the histochemical, immunohistochemical and immunofluorescence stain(s) in this case (if any), except where stated explicitly. The performance characteristics of the stain(s) cited in this report were developed and its performance characteristic determined by the Dermatopathology Laboratory at [facility], directed by Dr. Jj Martinez. These tests need not be, and therefore are not, approved by the [place] Food and Drug Administration. The tests are used for clinical purposes. Billing Codes Specimen Charges Stain Charges 55094 43489 82254 1 1 1 3 3:59 PM [employer]IO INSTALLER [employer] DERMATOPATHOLOGY LABORATORY Embedded Images 3 3:59 PM RADIO INSTALLER [employer] DERMATOPATHOLOGY LABORATORY Pathology/Cytology TISSUE SPECIMEN FROM SKIN / Unknown 02/18/2023 02/19/2023 2:02 PM RADIO INSTALLER AUTOMOBILE Miscellaneous samples (specimen) TISSUE SPECIMEN FROM SKIN / Unknown 02/18/2023 02/19/2023 2:02 PM RADIO INSTALLER AUTOMOBILE Miscellaneous samples (specimen) TISSUE SPECIMEN FROM SKIN / Unknown 02/18/2023 02/19/2023 2:02 PM RADIO INSTALLER AUTOMOBILE Romeo Orr MD LAB - PATHOLOGY/CYTO LOGY ORDERABLES DERMATOPATHOLOGY LABORATORY [facility] - Department of Dermatology [address], [address] [phone] documented in this encounter Visit Diagnoses Not on filedocumented in this encounter
== END 2024-06-17 07:08 | disposition home or self-care (01) ==
PROVIDERS: PCP Internal Medicine; Visit Provider Nurse Practitioner Family
DX: Z01.818 Encounter for other preprocedural examination (principal)
CPT/HCPCS: 93005

== ENCOUNTER 2024-06-18 13:40 | Outpatient (CLI) | payer MEDICARE, SELFPAY ==
--- NOTE | ~2024-06-18 | CT_ITS ---
EXAMINATION: CT lumbar spine wo con DATE: 06/18/2024 13:57 INDICATION: Lumbar radicular pain. TECHNIQUE: Computed tomography (CT) of the lumbar spine was performed without intravenous contrast. A utomated exposure control and iterative reconstruction technique were employed. The dose-length produ ct was 902.25 mGy-cm. COMPARISON: None FINDINGS: There is 12 degrees dextroscoliosis of thoracolumbar spine. There is 3 mm retrolisthesis of T12 on L1, 6 mm retrolisthesis of L1 on L2, 3 mm retrolisthesis of L2 on L3, 6 mm anterolisthesis of L4 on L5, and 5 mm anterolisthesis of L5 on S1. There is mild chronic anterior wedging of T12 verteb ral body. There is severely decreased disc height from T11-T12 through L1-L2, moderately decreased di sc height at L2-L3, L3-L4, and L4-L5, and severely decreased disc height at L5-S1. 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 The following disc levels are specifically discussed: L1-L2: The disc is bulging. There is severe right and moderate left facet joint osteoarthritis. There is moderate bilateral neural foraminal stenosis. There is mild central canal stenosis. L2-L3: The disc is bulging. There is severe bilateral facet joint osteoarthritis. There is moderate b ilateral neural foraminal stenosis. There is mild central canal stenosis. L3-L4: The disc is bulging. There is severe bilateral facet joint osteoarthritis. There is mild bilat eral neural foraminal stenosis. There is mild central canal stenosis. L4-L5: The disc is bulging. There is severe bilateral facet joint osteoarthritis. There is moderate b ilateral neural foraminal stenosis. There is no central canal stenosis. L5-S1: The disc is bulging. There is severe bilateral facet joint osteoarthritis. There is moderate a nd mild left neural foraminal stenosis. There is mild central canal stenosis. IMPRESSION: 1. Severe lumbar spondylosis. 2. Thoracolumbar dextroscoliosis. Reviewed, dictated and finalized at location A.
== END 2024-06-18 13:41 | disposition home or self-care (01) ==
PROVIDERS: PCP Internal Medicine; Visit Provider Nurse Practitioner Family
DX: M47.26 Other spondylosis with radiculopathy, lumbar region (principal)
CPT/HCPCS: 72131

== ENCOUNTER 2024-11-07 17:43 | Emergency (ER) | payer MEDICARE, SELFPAY ==
--- NOTE | ~2024-11-07 | XR_ITS ---
EXAMINATION: XR chest 2V Exam Date/Time: 11/07/2024 17:58 CDT HISTORY: cough, coarse, wheezy Comparison: 11/21/2004. RESULT: Lines, tubes, and devices: Left chest pacer with intact leads. Partially visualized right shoulder a rthroplasty hardware. Lungs and pleura: Streaky left basilar opacities, lungs otherwise clear. Cardiomediastinal silhouette: Stable. Other: No acute osseous or upper abdominal finding. IMPRESSION: Subsegmental left basilar atelectasis/consolidation Reviewed, dictated and finalized at location K.
--- OUTSIDE RECORDS SUMMARY | 2024-11-07 17:46 | XMS_ITS | Continuity of Care Document ---
Author Organization [facility] Address [address] [place] [address] Phone Care Team Providers Care Vice Provost Name Role Phone Skinny Blevins MD Unavailable Unavailable Procedures Procedure Date Office/outpatient visit,[facility] 2005 Advance Directives Directive Yes / No Effective Date File Name No Information Encounters Encounter Description Practice Location Reason(s) For Visit Diagnoses Date Provider Providers Copied on Encounter Office/outpat ient visit,[facility], [address], [id number], tel:[phone] [facility] No Information [address] Felicity Babb. [address] [facility] [address], [place], [place], [id number] , . tel: [phone] Family History Family Member Type Diagnosis Age At Onset No Information Payers Payer name Insurance type Covered constitution party ID Authoriza tion(s) [facility] [id number] Social History Type Description Quantity Date [...]
--- OUTSIDE RECORDS SUMMARY | 2024-11-07 17:46 | XMS_ITS | Encounter Summary ---
Author Organization [facility] Address [address] [place] [address] Care Team Providers Care Tanker Driver Name Role Phone Unavailable Primary Care Provider Unavailabl e Encounter Details Date Type Department Care Team (Late st Contact Info) Description 05/30/2023 Lab Requisition [facility] - DermPath Lab [address] [place] [phone] Jalen Moreno MD [facility] DERMATOLOGY [address] [place] [phone] 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, including hip Social History Tobacco Use Types Packs/Day Years Used Date Smoking Tobacco: Never Assessed Sex and Gender Information Value Date Recorded Sex Assigned at Not on file Legal Sex Male 6:29 PM WATER PUMP SERVICER Gender Identity Not on file Sexual Orientation Not on file documented as of this encounter Plan of Treatment Not on file documented as of this encounter Procedures Procedure Name Priority Date/Time Associated Diagnosis Comments DERMATOPATHOLOGY Routine 05/30/2023 12:0 0 AM WATER PUMP SERVICER 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, including hip documented in this encounter Results * DERMATOPATHOLOGY (05/30/2023 12:00 AM WATER PUMP SERVICER) Case Report Dermatopathology Report Case: [id number] Authorizing Provider: Jalen Moreno MD Collected: 05/30/2023 12:00 AM Ordering Location: [facility] - Received: 05/31/2023 12:20 PM [...] RESIDUAL SQUAMOUS CELL CARCINOMA NOT IDENTIFIED (L90.5) 1:26 PM [facility] DERMATOPATHOLOGY LABORATORY at 1326 CDT Clinical History A-B: Squamous Cell Carcinoma. Check margins. 1:26 PM [facility] DERMATOPATHOLOGY [facility]ORAT[facility] Gross Description Specimen A: Received is one formalin filled container labeled with the patient's name and designated right lateral superior lower leg. The specimen consists of a non-oriented ellipse of skin measuring [id number] mm. The epidermal surface is unremarkable. The [...] of a non-oriented ellipse of skin measuring 69n94e6 mm. The epidermal surface is unremarkable. The margin is inked green. The 12 o'clock and 6 o'clock tips are submitted in cassette 1. The remainder of the ellipse is serially sectioned and submitted in cassette 2-3. Jar 0. 1:26 PM [facility] DERMATOPATHOLOGY [facility]ORATORY Microscopic Description Specimen A. SKIN, [...] No residual squamous cell carcinoma is identified. 1:26 PM [facility] DERMATOPATHOLOGY LABORATORY Disclaimer An external and internal positive and negative controls are appropriate for the histochemical, immunohistochemical and immunofluorescence stain(s) in this case (if any), except where stated explicitly. The performance characteristics of the stain(s) cited in this report were developed and its performance characteristic determined by the Dermatopathology Laboratory at [facility], directed by Dr. Jj Martinez. These tests need not be, and therefore are not, approved by the [place] Food and Drug Administration. The tests are used for clinical purposes. Billing Codes Specimen Charges Stain Charges 34475 28313 1 1 4 1:26 PM CDT DERMATOPATHOLOGY LABORATORY Embedded Images 1:26 PM CDT DERMATOPATHOLOGY LABORATORY Pathology/Cytology TISSUE SPECIMEN FROM SKIN / Unknown 05/30/2023 05/31/2023 12:20 PM WATER PUMP SERVICER Miscellaneous samples (specimen) TISSUE SPECIMEN FROM SKIN / Unknown 05/30/2023 05/31/2023 12:20 PM WATER PUMP SERVICER Jalen Moreno MD LAB - PATHOLOGY/CYTOLOGY [place]DE [place]Y Final Result DERMATOPATHOLOGY LABORATORY [facility] - Department of Dermatology [address], [address] [phone] documented in this encounter Visit Diagnoses Diagnosis 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
--- OUTSIDE RECORDS SUMMARY | 2024-11-07 17:46 | XMS_ITS | Encounter Summary ---
Author Organization [facility] Address [address] [place] [address] Care Team Providers Care Allergist Immunologist Name Role Phone Unavailable Primary Care Provider Unavailabl e Encounter Details Date Type Department Care Team (Late st Contact Info) Description 11/22/2017 Lab Requisition [facility] Care DermPath Lab [address] [place] [phone] Erica Gordon MD [address] [facility] [facility] [address] [address] [place] [address] Social History Tobacco Use Types Packs/Day Years Used Date Smoking Tobacco: Never Assessed Sex and Gender Information Value Date Recorded Sex Assigned at Not on file Legal Sex Male 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 Gender Identity Not on file Sexual Orientation Not on file documented as of this encounter Plan of Treatment Not on file documented as of this encounter Procedures Procedure Name Priority Date/Time Associated Diagnosis Comments DERMATOPATH TECHNICAL REPORT Routine 11/21/2017 12:00 AM CDT documented in this encounter Results * DERMATOPATH TECHNICAL REPORT (11/21/2017 12:00 AM CDT) Case Report Dermatopathology Report Case: [id number] Authorizing Provider: Erica Gordon MD Collected: 11/21/2017 12:00 AM Pathologist: Valentina Emery MD Received: 11/22/2017 06:29 AM Specimen: Skin, left nasal ala 12:18 PM CDT DERMATOPATHOLOGY LABORATORY Clinical History R/O BCC. Non-healing. Check margins. 12:18 PM CDT DERMATOPATHOLOGY LABORATORY Gross Description Specimen A: Received is one formalin filled container labeled with the patient's name and designated left nasal ala. The specimen consists of a shave measuring [id number]. The margin is inked green. Jar 0. [facility] Dermatopathology Laboratory performed the technical component only. 8 12:18 PM CDT DERMATOPATHOLOGY LABORATORY Embedded Images 8 12:18 PM CDT DERMATOPATHOLOGY LABORATORY DISCLAIMER An external and internal positive and negative controls are appropriate for the histochemical, immunohistochemical and immunofluorescence stain(s) in this case (if any), except where stated explicitly. The performance characteristics of the stain(s) cited in this report were developed and its performance characteristic determined by the Dermatopathology Laboratory at [facility]. These tests need not be, and therefore are not, approved by the [place] Food and Drug Administration. The tests are used for clinical purposes. 8 12:18 PM T DERMATOPATHOLOGY LABORATORY at 1218 CDT Pathology/Cytolog y TISSUE SPECIMEN FROM SKIN / Unknown 11/21/2017 11/22/2017 6:29 AM CDT Erica Gordon MD LAB - PATHOLOGY/CYTOLOGY OR DERABLES Final Result DERMATOPATHOLOGY LABORATORY [facility] - Department of Dermatology [address] [place] [address], [address] [place] [address], [facility] [phone] documented in this encounter Visit Diagnoses Not on filedocumented in this encounter
--- OUTSIDE RECORDS SUMMARY | 2024-11-07 17:46 | XMS_ITS | Clinical Summary ---
Author Organization [facility] Address [address] [place] [address] Care Team Providers Care Truck Caterer Name Role Phone Pelon Montana MD Primary Care Provider [phone] Allergies Active Allergy Reactions Criticality Noted Date Comments Iodine Anaphylaxis High 02/20/2023 Shellfish Allergy Anaphylaxis High 02/20/2023 Medications fluticasone propionate (FLONASE) 50 MCG/ACT nasal spray SHAKE LIQUID AND USE 1 SPRAY IN EACH NOSTRIL EVERY DAY 3 Active rosuvastatin (CRESTOR) 20 MG tablet Take 1 tablet (20 mg total) by mouth nightly at bedtime. Active XARELTO 20 MG Tab tablet TAKE 1 TABLET BY MOUTH DAILY WITH THE EVENING MEAL 3 Active loteprednol (LOTEMAX) 0.5 % ophthalmic suspension Place 2 drops into the left eye daily. 4 Active acyclovir (ZOVIRAX) 400 MG tablet Take 1 tablet (400 mg total) by mouth daily. Active mirabegron ER (MYRBETRIQ) 25 MG 24 hr tablet Take 1 tablet (25 mg total) by mouth daily. Active ketorolac (ACULAR) 0.5 % ophthalmic solution 5 Active ipratropium (ATROVENT HFA) 17 MCG/ACT inhalerIndicati ons:Cough, unspecified type Inhale 2 puffs into the lungs every 6 (six) hours. 12.9 g Active LORazepam (ATIVAN) 0.5 MG tabletIndicatio ns:Anxiety Take one tablet by mouth 30 minutes prior scan, may repeat 5-10 minutes prior to scan if needed 2 tablet 5 025 Discontinued amoxicillin-cla vulanate (AUGMENTIN) 875-125 MG tabletIndicatio ns:Animal bite Take 1 tablet (875 mg total) by mouth 2 (two) times daily for 10 days. 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 Otc NyQuil, Cold/flu Alkaseltzer, tylenol for headache. ) 11/03/2024 Telephone [facility] Internal [address] [phone] Pelon Montana MD Medication Request 11/03/2024 Travel 10/27/2024 9:40 AM CDT Allied Health/Nurse Visit [facility] Internal [address] [phone] Pelon Montana MD Allied Health Visit 10/27/2024 Travel 10/26/2024 Telephone [facility] Internal [address] [address] Pelon Montana MD Bite 10/14/2024 Scan [facility] Scanned, [facility] 09/30/2024 Scan [facility] Scanned, [facility] 09/21/2024 Scan [facility] Scanned, [facility] 09/08/2024 10:00 AM CDT Office Visit [facility] Internal [address] [address] Pelon Montana MD Follow Up; Atrial Fibrillation; Benign Prostatic Hypertrophy; Hyperlipidemia; Colonoscopy (Patient is wondering if he is due for a colonoscopy. He states he is supposed to be getting them every 5 years) 09/08/2024 Travel 09/01/2024 Results Follow-Up [address] [address] Pelon Montana MD FOLIC ACID SERUM, VITAMIN B-12, URINALYSIS, Additional followed-up results: 6 08/31/2024 9:00 AM CDT Laboratory Only [address] [phone] Pelon Montana MD 08/31/2024 Scan [facility] Scanned, [facility] 08/31/2024 - 08/31/2024 11:59 PM CDT Hospital Encounter [facility] [address] [place] [address] Pelon Montana MD Discharge Disposition: Home or Self Care (Routine Discharge) 08/31/2024 Travel 08/26/[address] [address] Pelon Montana MD Medication Request 08/18/[address] [address] Pelon Montana MD Medication Request from Last 3 Months Immunizations Immunization Administration Dates Next Due Arexvy Respiratory Syncytial Virus (RSV, adjuvanted) 0.5 mL, PF 02/20/2023 Fluad influenza vaccine, Xavi drivalent (aIIV4), Inactivated, adjuvanted, preservative free, 0.5 mL,IM use 12/18/2019 Fluzone High Dose (IIV, triv alent, 0.5mL) 12/26/2023 Influenza (Generic) 12/31/2014 Influenza Adult (Generic) 01/08/2023,,01/27/2021,2018,01/07/2018,01/10/2017,01/04/2016 Pneumococcal (Pneumovax 23) 04/06/2013, 4 Pneumococcal (Prevnar 13) 01/11/2015 Pneumococcal (Prevnar 20) 01/19/2022 Tdap (Adacel) 10/27/2024 Tdap (Generic) 12/26/2015 Tetanus Toxoid Inj 03/15/2014 [...] Never Smokeless Tobacco: Never Tobacco Cessation:Counseling Given: Yes Alcohol Use Standard Drinks/Week Comments Not Currently 0 (1 standard drink = 0.6 oz pur e alcohol) PHQ-2 Answer Date Recorded Patient Health Questionnaire-2 Score 0 05/05/2024 Sex and Gender Information Value Date Recorded Sex Assigned at Male 05/05/2024 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 Legal Sex Male 1:59 PM CDT Gender Identity Not on file Sexual Orientation Not on file Last Filed Vital Signs Vital Sign Reading Time Taken Comments Blood Pressure 114/64 11/03/2024 10:08 AM CDT Pulse 73 11/03/2024 10:08 AM CDT Temperature 36.6 C (97.9 F) 11/03/2024 10:08 AM CDT Respiratory Rate 16 11/03/2024 10:08 AM CDT Oxygen Saturation 98% 11/03/2024 10:08 AM CDT Inhaled Oxygen Concentration - - Weight 98.7 kg (217 lb 8 oz) 11/03/2024 10:08 AM CDT Height 185.4 cm (6' 1) 11/03/2024 10:08 AM CDT Body Mass Index 28.7 11/03/2024 10:08 AM CDT Plan of Treatment Upcoming Encounters Date Type Department Care Team (Late st Contact Info) Description 12/10/2024 9:40 AM CDT Office Visit [facility] Family & Internal Medicine [address] [phone] Pelon Montana MD [address] [place] [address] [phone] Health Maintenance Due Date Last Done Comments Hepatitis C 1963 Zoster Vaccines (1 of 2) 1996 Annual Medicare Wellness Visit 09/19/2011 COVID-19 Vaccine ( season) 2024 01/17/2024, 01/31/2023, 12/06/2021, Additional history exists DTaP, Tdap and Td Vaccines (3 - Td or Tdap) 10/27/2034 10/27/2024, 12/26/2015, 03/15/2014 Pneumococcal Vaccine: 50+ Years Completed 01/19/2022, 01/11/2015, 04/06/2013, Additional history exists RSV Immunization or 60+ Years Completed 02/20/2023 PHQ-2 (Physician [place]) Completed 05/05/2024 Meningococcal B Vaccine Aged Out No l onger eligible based on patient's age to complete this topic Meningococcal Vaccine Aged Out No olga marli eligible based on patient's age to complete this topic RSV Immunizations Under 20 Months Aged Out No longer eligible based on patient's age to complete this topic Procedures Procedure Name Priority Date/Time Associated Diagnosis Comments COLLECTION VENOUS BLOOD VENIPUNCTURE Routine 08/31/2024 8:54 AM CDT Paroxysmal atrial fibrillation (CMS/HCC HHS/HCC) Mixed hyperlipidemia Neuropathy THYROXINE, FREE (FT4) Routine 08/31/2024 8:54 AM CDT CBC W/DIFF AUTOMATED Routine 08/31/2024 8:54 AM CDT Paroxysmal atrial fibrillation (CMS/HCC HHS/HCC) Mixed hyperlipidemia LIPID PANEL Routine 08/31/2024 8:54 AM CDT Paroxysmal atrial fibrillation (CMS/HCC HHS/HCC) Mixed hyperlipidemia COMPREHENSIVE METABOLIC PANEL Routine 08/31/2024 8:54 AM CDT Paroxysmal atrial fibrillation (CMS/HCC HHS/HCC) Mixed hyperlipidemia CK (CPK) Routine 08/31/2024 8:54 AM CDT Paroxysmal atrial fibrillation (CMS/HCC HHS/HCC) Mixed hyperlipidemia TSH W/REFLEX Routine 08/31/2024 8:54 AM CDT Paroxysmal atrial fibrillation (CMS/HCC HHS/HCC) Mixed hyperlipidemia URINALYSIS, AUTO, COMPLETE Routine 08/31/2024 8:54 AM CDT Paroxysmal atrial fibrillation (CMS/HCC HHS/HCC) Mixed hyperlipidemia VITAMIN B-12 Routine 08/31/2024 8:54 AM CDT Paroxysmal atrial fibrillation (CMS/HCC HHS/HCC) Mixed hyperlipidemia Neuropathy FOLIC ACID SERUM Routine 08/31/2024 8:54 AM CDT Paroxysmal atrial fibrillation (CMS/HCC HHS/HCC) Mixed hyperlipidemia Neuropathy from Last 3 Months Results * (ABNORMAL) TSH W/REFLEX (08/31/2024 8:54 AM CDT) TSH 3.741(H) 0.358 - 3.740 uIU/ML 08/31/2024 3:46 PM CDT [facility] [place] 08/31/2024 8:54 AM CDT us Pelon Montana MD LABORATORY Final Result [facility] [place] [address] [place] [address], * URINALYSIS (08/31/2024 8:54 AM CDT) COLOR (U) YELLOW 08/31/2024 2:41 PM T [facility] TRANSPARENCY CLEAR CLEAR 08/31/2024 2:41 PM T [facility] SPECIFIC GRAVITY (U) 1.025 1.003 - 1.040 08/31/2024 2:41 PM CDT [facility] U PH 6.0 5.0 - 9.0 08/31/2024 2:41 PM [facility] PROTEIN RANDOM (U) NEGATIVE NEGATIVE 08/31/2024 2:41 PM [facility] GLUCOSE (U) NEGATIVE NEGATIVE 08/31/2024 2:41 PM [facility] KETONES MG/DL (U) NEGATIVE NEGATIVE 08/31/2024 2:41 PM T [facility] BILIRUBIN (U) NEGATIVE NEGATIVE 08/31/2024 2:41 PM T [facility] BLOOD (U) NEGATIVE NEGATIVE 08/31/2024 2:41 PM [facility] UROBILINOGEN 0.2 0.0 - 2.0 EU/DL 08/31/2024 2:41 PM [facility] NITRITES NEGATIVE NEGATIVE 08/31/2024 2:41 PM T [facility] LEUKOCYTES (U) NEGATIVE NEGATIVE 08/31/2024 2:41 PM T [facility] RBC/HPF 0-3 0 - 3 /HPF 08/31/2024 2:41 PM T [facility] WBC/HPF 0-3 0 - 3 /HPF 08/31/2024 2:41 PM T [facility] EPI/HPF 0-3 /HPF 08/31/2024 2:41 PM T [facility] BACTERIA (U) NONE SEEN NONE SEEN 08/31/2024 2:41 PM CDT [facility] MUCUS MANY 08/31/2024 2:41 PM CDT [facility] URINE SPECIMEN OBTAINED BY CLEAN CATCH PROCEDURE / Unknown 08/31/2024 8:54 AM CDT us Pelon Montana MD URINE ORDERABLES Final Result Performing Organization Address City/[facility] Co de Phone Number [facility] [address] [place] [address], [place] [phone] * VITAMIN B-12 (08/31/2024 8:54 AM CDT) VITAMIN B12 S/P/B 304 193 - 986 PG/ML 08/31/2024 3:46 PM CDT [facility] 08/31/2024 8:54 AM CDT us Pelon Montana MD LABORATORY Final Result Performing Organization Address City/[facility]/ZIP Co de Phone Number [facility] [address] [place] [address], [place] [phone] * (ABNORMAL) COMPREHENSIVE METABOLIC PANEL (08/31/2024 8:54 AM CDT) SODIUM S/P/B 144 136 - 145 MMOL/L 08/31/2024 3:46 PM CDT [facility] POTASSIUM S/P/B 4.3 3.5 - 5.1 MMOL/L 08/31/2024 3:46 PM CDT [facility] CHLORIDE S/P/B 106 98 - 107 MMOL/L 08/31/2024 3:46 PM CDT [facility] CO2 30.1 21 - 32 MMOL/L 08/31/2024 3:46 PM CDT [facility] GLUCOSE 111(H) 70 - 99 MG/DL 08/31/2024 3:46 PM T [facility] BUN 28(H) 7 - 18 MG/DL 08/31/2024 3:46 PM [facility] CREATININE S/P/B 0.86 0.70 - 1.30 MG/DL 08/31/2024 3:46 PM [facility] CALCIUM S/P/B 9.1 8.4 - 10.5 MG/DL 08/31/2024 3:46 PM T [facility] BILIRUBIN TOTAL S/P/B 1.7(H) 0.2 - 1.0 MG/DL 08/31/2024 3:46 PM [facility] ALKALINE PHOSPHATASE S/P/B 81 45 - 115 U/L 08/31/2024 3:46 PM T [facility] AST 20 15 - 37 U/L 08/31/2024 3:46 PM CDT [facility] ALT 15(L) 16 - 63 U/L 08/31/2024 3:46 PM T [facility] TOTAL PROTEIN S/P/B 6.8 6.4 - 8.2 G/DL 08/31/2024 3:46 PM [facility] ALBUMIN S/P/B 3.9 3.4 - 5.0 G/DL 08/31/2024 3:46 PM T [facility] ANION GAP 7.9 5 - 15 MMOL/L 08/31/2024 3:46 PM T [facility] Comment:REFERENCE RANGE NOT ESTABLISHED OSMOLALITY (CALC) 304 MOSM/KG 025 3:46 PM T [facility] Comment:REFERENCE RANGE NOT ESTABLISHED GFR ESTIMATE 89(L) >90 ML/MIN/1. 73 M2 08/31/2024 3:46 PM T [facility] GFR NOTES GFR REFERENCE S: 08/31/2024 3:46 PM CDT [facility] Comment: THE ESTIMATED GFR IS CALCULATED USING THE 2020 CKD-EPI EQUATION. THE FOLLOWING CATEGORIES FOR GRADING RENAL FUNCTION ARE RECOMMENDED BY THE INTERNATIONAL SOCIETY OF NEPHROLOGY (KDIGO 2012 CLINICAL PRACTICE GUIDELINE). G1,NORMAL OR HIGH: >89 ml/min/1.73 m2 G2,MILDLY DECREASED: 60-89 ml/min/1.73 m2 G3A,MILDLY TO MODERATELY DECREASED: 45-59 ml/min/1.73 m2 G3B,MODERATELY TO SEVERELY DECREASED: 30-44 ml/min/1.73 m2 G4,SEVERELY DECREASED: 15-29 ml/min/1.73 m2 G5,KIDNEY FAILURE: <15 ml/min/1.73 m2 08/31/2024 8:54 AM CDT us Pelon Montana MD LABORATORY Final Result [facility] [address] [place] [address], * LIPID PANEL (08/31/2024 8:54 AM CDT) CHOLESTEROL 113 <200 MG/DL 08/31/2024 3:46 PM CDT [facility] TRIGLYCERIDES 56 <150 MG/DL 08/31/2024 3:46 PM CDT [facility] HDL 48 >40 MG/DL 08/31/2024 3:46 PM CDT [facility] LDL-C 54 <100 MG/DL 08/31/2024 3:46 PM CDT [facility] VLDL CALCULATION 11 5 - 28 MG/DL 08/31/2024 3:46 PM CDT [facility] CHOL/HDL RATIO 2.4 0.0 - 4.0 08/31/2024 3:46 PM CDT [facility] LDL/HDL 1.1 0.41 - 2.13 08/31/2024 3:46 PM CDT [facility] NON HDL CHOLESTEROL 65 <140 MG/DL 08/31/2024 3:46 PM CDT [facility] 08/31/2024 8:54 AM CDT us Pelon Montana MD LABORATORY Final Result [facility] [address] [place] [address], * (ABNORMAL) FOLIC ACID SERUM (08/31/2024 8:54 AM CDT) FOLATE <0.5(L) 8.6 - 58.9 NG/ML 09/01/2024 12:52 PM CDT [facility] Comment: RESULT VERIFIED RESULT CHECKED 08/31/2024 8:54 AM CDT Pelon Montana MD LABORATORY Final Result Performing Organization Address City/[facility]/ZIP Co de Phone Number [place] [address] [place] [address], * (ABNORMAL) CBC W/DIFF AUTOMATED (08/31/2024 8:54 AM CDT) WBC 4.66 4.00 - 10.80 x10'3/uL 08/31/2024 2:19 PM CDT [facility] RBC 4.58 4.50 - 6.10 x10'6/uL 08/31/2024 2:19 PM CDT [facility] HGB 13.8 13.0 - 18.0 G/DL 08/31/2024 2:19 PM CDT [facility] HCT 42.6 37.0 - 52.0 % 08/31/2024 2:19 PM CDT [facility] MCV 93.0 78.0 - 100.0 FL 08/31/2024 2:19 PM CDT [facility] MCH 30.1 27.0 - 31.0 PG 08/31/2024 2:19 PM CDT [facility] MCHC 32.4(L) 33.0 - 36.0 G/DL 08/31/2024 2:19 PM CDT [facility] RDW 15.0(H) 11.5 - 14.5 % 08/31/2024 2:19 PM CDT [facility] PLT 177 150 - 350 x10'3/uL 08/31/2024 2:19 PM CDT [facility] MPV 10.3 7.4 - 10.4 FL 08/31/2024 2:19 PM CDT [facility] DIFFERENTIAL TYPE AUTOMATED DIFFERENTIAL 08/31/2024 2:20 PM CDT [facility] NEUTROPHILS % 57.6 % 08/31/2024 2:20 PM CDT [facility] LYMPHOCYTES % 31.5 % 08/31/2024 2:20 PM CDT [facility] MONOCYTES % 9.4 % 08/31/2024 2:20 PM CDT [facility] EOSINOPHILS % 1.1 % 08/31/2024 2:20 PM CDT [facility] BASOPHILS % 0.2 % 08/31/2024 2:20 PM CDT [facility] IMMATURE GRANS % 0.2 % 08/31/2024 2:20 PM CDT [facility] ABS. NEUTROPHILS 2.68 1.60 - 8.30 x10'3/uL 08/31/2024 2:20 PM CDT [facility] ABS. LYMPHOCYTES 1.47 0.80 - 4.70 x10'3/uL 08/31/2024 2:20 PM CDT [facility] ABS. MONOCYTES 0.44 0.00 - 1.50 x10'3/uL 08/31/2024 2:20 PM CDT [facility] ABS. EOSINOPHILS 0.05 0.00 - 0.40 x10'3/uL 08/31/2024 2:20 PM CDT [facility] ABS. BASOPHILS 0.01 0.00 - 0.20 x10'3/uL 08/31/2024 2:20 PM CDT [facility] ABS. IMMATURE GRANULOCYTES 0.01 0.00 - 0.03 x10'3/uL 08/31/2024 2:20 PM CDT [facility] 08/31/2024 8:54 AM CDT us Pelon Montana MD LABORATORY Final Result Performing Organization Address [facility]/ZIP Co de Phone Number [address] [address], * THYROXINE, FREE (FT4) (08/31/2024 8:54 AM CDT) FREE T4 0.99 0.76 - 1.46 NG/DL 08/31/2024 4:18 PM CDT [facility] 08/31/2024 8:54 AM CDT us Pelon Montana MD LABORATORY Final Result Performing Organization Address City/[facility]/ZIP Co de Phone Number [address] [address], * CK (CPK) (08/31/2024 8:54 AM CDT) CPK 182 39 - 308 U/L 08/31/2024 6:01 PM CDT [facility] 08/31/2024 8:54 AM CDT Pelon Montana MD LABORATORY Final Result [facility] [address] [place] [address], [place] [phone] [id number] from Last 3 Months Insurance MED [facility] MEDICARE Care Teams Truck Caterer Relationship Specialty Start Date End Date Pelon Montana MD [address] [place] [id number] PCP - General INTERNAL MEDICINE 02/20/23
--- OUTSIDE RECORDS SUMMARY | 2024-11-07 17:46 | XMS_ITS | Encounter Summary ---
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
--- OUTSIDE RECORDS SUMMARY | 2024-11-07 17:46 | XMS_ITS | Encounter Summary ---
Author Organization [facility] Address [address] [place] [address] Care Team Providers Care Clock And Watch Assembler Name Role Phone Pelon Montana MD Primary Care Provider [phone] Reason for Visit * Reason Onset Date Comments Advice 11/06/2024 Nurse Triage - A fter Hours ([id number]) Encounter Details Date Type Department Care Team (Late st Contact Info) Description 11/06/2024 Telephone [facility] Family & Internal Medicine [address] [phone] Deborah Ballesteros, DO [address] [address] Advice (Nurse Triage - After Hours ([id number])/) Social History Tobacco Use Types Packs/Day Years Used Date Smoking Tobacco: Never Smokeless Tobacco: Never Alcohol Use Standard Drinks/Week Comments Not Currently 0 (1 standard drink = 0.6 oz pur e alcohol) PHQ-2 Answer Date Recorded Patient Health Questionnaire-2 Score 0 05/05/2024 Sex and Gender Information Value Date Recorded Sex Assigned at Male 05/05/2024 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 Was Never Given an Antibiotic. Assessment Notes Marvin Maldonado. 1945. [phone]. PCP Luis. Saw Deborah Antunez on Saturday. Seen due to cough that he's had almost 2 weeks. Prescribed an inhaler and if not better to call back. Called back and today. Never got a call back. The cough is no better. Yellow phlegm and no fever. No cp or sob. I advised urgent care to be checked again since office not open until Saturday , ER if cp or sob. No ad operations intern listing. CARE ADVICE given per Cough - Chronic (Adult) guideline. [id number] documented in this encounter Plan of Treatment Upcoming Encounters Date Type Department Care Team (Late st Contact Info) Description 12/10/2024 9:40 AM CDT Office Visit [facility] Family & Internal Medicine - [place] [address] [place] [address] Pelon Montana MD [address] [place] [address] documented as of this encounter Visit Diagnoses Not on filedocumented in this encounter Care Teams Clock And Watch Assembler Relationship Specialty Start Date End Date Pelon Montana MD [address] [place] [address] PCP - General INTERNAL MEDICINE 02/20/23 documented as of this encounter
--- OUTSIDE RECORDS SUMMARY | 2024-11-07 17:46 | XMS_ITS | Encounter Summary ---
Author Organization [facility] Address [address] [address] Care Team Providers Care Adult Parole Officer Name Role Phone Unavailable Primary Care Provider Unavailabl e Encounter Details Date Type Department Care Team (Late st Contact Info) Description 02/19/2023 Lab Requisition [facility] - DermPath Lab [address] [place] [id number] Romeo Orr MD [address] [place] [address] Social History Tobacco Use Types Packs/Day Years Used Date Smoking Tobacco: Never Assessed Sex and Gender Information Value Date Recorded Sex Assigned at Not on file Legal Sex Male 6:29 PM COMMUNITY HEALTH PROGRAM REPRESENTATIVE Gender Identity Not on file Sexual Orientation Not on file documented as of this encounter Plan of Treatment Not on file documented as of this encounter Procedures Procedure Name Priority Date/Time Associated Diagnosis Comments DERMATOPATHOLOGY Routine 02/18/2023 12:0 0 AM COMMUNITY HEALTH PROGRAM REPRESENTATIVE documented in this encounter Results * DERMATOPATHOLOGY (02/18/2023 12:00 AM COMMUNITY HEALTH PROGRAM REPRESENTATIVE) Case Report Dermatopathology Report Case: [id number] Authorizing Provider: Romeo Orr MD Collected: 02/18/2023 12:00 AM Ordering Location: [facility] Lab Received: 02/19/2023 02:02 PM Pathologist: Sybil Trotter MD Specimens: A) - Skin, right lateral superior lower leg B) - Skin, right lateral lower leg C) - Skin, left anterior lateral lower leg above ankle 3:59 PM COMMUNITY HEALTH PROGRAM REPRESENTATIVE DERMATOPATHOLOGY LABORATORY Final Diagnosis Specimen A. 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 SKIN, right lateral lower leg: SUPERFICIAL (FOCALLY INVASIVE) SQUAMOUS CELL CARCINOMA ARISING IN AN ACTINIC KERATOSIS (C44.722) Specimen C. SKIN, left anterior lateral lower leg above ankle: SEBORRHEIC KERATOSIS, CLONAL TYPE (L82.1) 3 3:59 PM [facility] DERMATOPATHOLOGY LABORATORY at 1559 COMMUNITY HEALTH PROGRAM REPRESENTATIVE Clinical History A-C: R/O BCC 3 3:59 PM [facility] DERMATOPATHOLOGY LABORATORY Gross Description Specimen A: Received [...] 10x7x2 mm. Jar 0. 3 3:59 PM [facility] DERMATOPATHOLOGY LABORATORY Microscopic Description Specimen A. SKIN, [...] from surrounding basaloid keratinocytes. 3 3:59 PM [facility] DERMATOPATHOLOGY LABORATORY Disclaimer An external and internal positive and negative controls are appropriate for the histochemical, immunohistochemical and immunofluorescence stain(s) in this case (if any), except where stated explicitly. The performance characteristics of the stain(s) cited in this report were developed and its performance characteristic determined by the Dermatopathology Laboratory at [facility], directed by Dr. Jj Martinez. These tests need not be, and therefore are not, approved by the [place] Food and Drug Administration. The tests are used for clinical purposes. Billing Codes Specimen Charges Stain Charges 70333 74335 59924 1 1 1 3 3:59 PM COMMUNITY HEALTH PROGRAM REPRESENTATIVE DERMATOPATHOLOGY LABORATORY Embedded Images 3 3:59 PM COMMUNITY HEALTH PROGRAM REPRESENTATIVE DERMATOPATHOLOGY LABORATORY Pathology/Cytology TISSUE SPECIMEN FROM SKIN / Unknown 02/18/2023 02/19/2023 2:02 PM COMMUNITY HEALTH PROGRAM REPRESENTATIVE Miscellaneous samples (specimen) TISSUE SPECIMEN FROM SKIN / Unknown 02/18/2023 02/19/2023 2:02 PM COMMUNITY HEALTH PROGRAM REPRESENTATIVE Miscellaneous samples (specimen) TISSUE SPECIMEN FROM SKIN / Unknown 02/18/2023 02/19/2023 2:02 PM COMMUNITY HEALTH PROGRAM REPRESENTATIVE Romeo Orr MD LAB - PATHOLOGY/CYTOLOGY ORD ERABLES Final Result DERMATOPATHOLOGY LABORATORY [facility] - Department of Dermatology [facility] Medicine [address] [place] [address], [address]rd Floor [address] [phone] documented in this encounter Visit Diagnoses Not on filedocumented in this encounter
--- OUTSIDE RECORDS SUMMARY | 2024-11-07 17:46 | XMS_ITS | Encounter Summary ---
Author Organization [facility] Address [address] [place] [address] Care Team Providers Care Cam Milling Machine Operator Name Role Phone Pelon Montana MD Primary Care Provider [phone] Reason for Visit * Reason Onset Date Comments Medication Request 11/03/2024 Encounter Details Date Type Department Care Team (Late st Contact Info) Description 11/03/2024 Telephone [facility] Family & Internal Medicine [address] [address] Pelon Montana MD [address] [place] [address] Medication Request Social History Tobacco Use Types Packs/Day Years Used Date Smoking Tobacco: Never Smokeless Tobacco: Never Alcohol Use Standard Drinks/Week Comments Not Currently 0 (1 standard drink = 0.6 oz pur e alcohol) PHQ-2 Answer Date Recorded Patient Health Questionnaire-2 Score 0 05/05/2024 Sex and Gender Information Value Date Recorded Sex Assigned at Male 05/05/2024 10:21 AM TAILINGS DAM PUMPER Legal Sex Male 1:59 PM CDT Gender Identity Not on file Sexual Orientation Not on file documented as of this encounter Progress Notes * Sofie Palomares - 11/06/2024 7:11 AM CDT Patient called in stating inhaler has not helped improve symptoms, asking if the abx could be sent out. Patient states he thought he had seen red sputum after coughing. Please advise. * Sofie Palomares - 11/03/2024 2:01 PM CDT Patients spouse called in stating patient's inhaler rx will be unable to be filled until tomorrow afternoon at the earliest. Patient said they spoke about starting an abx was wondering if that could be sent out. Please advise. [id number] - [place], [place] - [address] [place] [address] [address] documented in this encounter Plan of Treatment Upcoming Encounters Date Type Department Care Team (Late st Contact Info) Description 12/10/2024 9:40 AM CDT Office Visit [facility] Family & Internal Medicine - [place] [address] [place] [address] Pelon Montana MD [address] [place] [address] documented as of this encounter Visit Diagnoses Not on filedocumented in this encounter Care Teams Cam Milling Machine Operator Relationship Specialty Start Date End Date Pelon Montana MD [address] [place] [address] PCP - General INTERNAL MEDICINE 02/20/23 documented as of this encounter
--- OUTSIDE RECORDS SUMMARY | 2024-11-07 17:46 | XMS_ITS | Continuity of Care Document ---
Author Organization [facility] Address [address] [place] [phone] Phone Care Team Providers Care Special Librarian Name Role Phone Marielos Borjas NP Unavailable Unavailable Medications Medication Instructions Dosage Effective Dates (start - stop) Status Comments rosuvastatin 20 mg tablet take 1 tablet by oral route every day 20 MG - Active Procedures Procedure Date PM/ICD REMOTE TECH SERV PM DEVICE INTERROGATE REMOTE Advance Directives Directive Yes / No Effective Date File Name No Information Encounters Encounter Description Practice Location Reason(s) For Visit Diagnoses Date Provider Providers Copied on Encounter [facility], [address] [place] [address], [id number], tel:[phone] [facility] No Information Indio Arceo. [address] [place] [address], [id number], . tel:[phone] [facility], [address] [place] [address], [id number], tel:[phone] [facility] [place] Presence of cardiac pacemaker Carlos Pang. [address] [place], [place] [address], [id number], . tel:[phone] Referring Provider: Poly Gonzalez, [address], [place], [address]. tel:[phone] lting Provider: [address], [place], [address]. tel:[phone] Family History Family Member Type Diagnosis Age At Onset No Information Payers Payer name Insurance type Covered alliance party ID Authoriza tion(s) [facility] MEDICARE ADVANTAGE PPO [id number] Social History Type Description Quantity Date Captured Comments Sex Male Smoking Status No Information Chief Complaint And Reason For Visit No Information Reason For Referral Reason For Referral No Information Plan Of Treatment Date Type Action Status Appointment Marvin Maldonado Appointment Marvin Maldonado History Of Present Illness Encounter Date Complaint History Of Prese nt Illness No Information Functional Status Date Functional Assessmen t No Information Instructions Date Instruction Additional Infor mation No Information Assessments Type Assessment Date No Information Patient Care Teams Name Effective Dates (start - stop) Status Members No Information
--- OUTSIDE RECORDS SUMMARY | 2024-11-07 17:46 | XMS_ITS | Clinical Summary ---
Author Organization [facility] Address [address] [place] [address] Care Team Providers Care Exercise Planner Name Role Phone Unavailable Primary Care Provider Unavailabl e Source Comments [facility],non-owned Affiliates and Associated Physician Practices is amultiple site organization consisting of ambulatory clinics and hospital sitesin [place], [place], [place] and [place]. This disclosure is being madepursuant to the Care Everywhere program and may not contain all information available regarding this patient. Last updated 17.[facility] [employer] Social History Tobacco Use Types Packs/Day Years Used Date Smoking Tobacco: Never Assessed Sex and Gender Information Value Date Recorded Sex Assigned at Not on file Legal Sex Male 6:29 PM FIRST COAT SANDER Gender Identity Not on file Sexual Orientation [...] VACCINE ( - 2023-2 5 season) 2023 DEPRESSION SCREENING 03/25/2024 MEDICARE AWV CALENDAR YEAR 2024 INFLUENZA VACCINE (#1) 2024 HEPATITIS B VACCINE Aged Out No [...] patient's age to complete this topic Insurance MEDICARE UHC MANAGED MEDICARE ADV
--- OUTSIDE RECORDS SUMMARY | 2024-11-07 17:46 | XMS_ITS | Clinical Summary ---
Author Organization [facility] Address [address] [place] [address] Care Team Providers Care Smearer Name Role Phone Pelon Montana MD Primary Care Provider [phone] Allergies Active Allergy Reactions Criticality Noted Date [...] Information Patient not taking.Reported on 06/27/2023 vit C,J-Mw-vpyfa-lute in-zeaxan 250-90-40-1 mg capsule Take 1 capsule by mouth daily Active trospium XR (SANCTURA XR) 60 mg capsule,extended release 24hr Take 1 capsule (60 mg total) by mouth daily before breakfast 90 capsule 3 4 Active Active Problems Problem Noted Date Diagnosed Date Pacemaker 09/01/2024 AV heart block 09/01/2024 Permanent atrial fibrillation 06/28/2023 Elevated PSA 03/08/2023 Arthralgia of hip 06/20/2016 Arthralgia of shoulder 01/17/2015 Encounters Date Type Department Care Team Description 09/03/2024 Results Follow-Up [facility]) - [facility] [address]th [place] [address] [place] [address] Mery Kearney MD MRI Pelvis Prostate W WO Contrast 09/03/2024 Telephone [facility]) - [facility] [address] [place] [address] [place] [address] Mery Kearney MD 09/02/2024 7:10 AM CDT - 09/02/2024 11:59 PM CDT Hospital Encounter [facility] [address] [facility] [place] [address] Elevated PSA Discharge Disposition: Discharge to home or self care 09/02/2024 Documentation Cardiology Juhi Bishop NP 09/01/2024 10:48 AM CDT - 09/01/2024 11:59 PM CDT Hospital Encounter [facility] [address] [place] [address] Pacemaker reprogramming/check; Paroxysmal atrial fibrillation (HCC); Sinus node dysfunction (HCC) Discharge Disposition: Discharge to home or self care 09/01/2024 10:30 AM CDT Office Visit [facility] [address] [place] [address] 8th [place] [address] [place] [address] Geovanna Stanford NP Paroxysmal atrial fibrillation (HCC) (Primary Dx); Pacemaker reprogramming/check; Sinus node dysfunction (HCC); Pacemaker; Permanent atrial fibrillation (HCC); AV heart block 09/01/2024 10:00 AM CDT Ancillary Procedure [facility] [address] [place] [address] 8th [place] [address] [place] [address] Paroxysmal atrial fibrillation (HCC) [I48.0] (Primary Dx); Pacemaker reprogramming/check 09/01/2024 Results Follow-Up [facility] [address] [place] [address] 8th [place] [address] [place] [address] Geovanna Stanford NP XR Chest Pa Lateral 2 Views 08/24/2024 Telephone [facility] [address] [place] [address] [address]th [place] [address] [place] [phone] Riya Luna 08/19/2024 Orders Only [facility] [address] [place] [address] 8th [place] [address] [place] [address] Geovanna Stanford NP Pacemaker reprogramming/check (Primary Dx) from Last 3 Months Surgical [...] on file Legal Sex Male 1:27 PM LEATHER SPRAYER Gender Identity Not on file Sexual Orientation Not on file Occupation Industry Job Start Date Job End Date [employer] Not on file Not on file Not on filippo e Obstetrics History Last Filed Vital Signs Vital Sign Reading Time Taken Comments Blood Pressure 137/72 09/02/2024 10:02 AM CDT Pulse 60 09/02/2024 10:02 AM CDT Temperature 35.9 C (96.7 F) 04/16/2023 9:05 AM LEATHER SPRAYER Respiratory Rate 18 04/16/2023 9:35 AM LEATHER SPRAYER Oxygen Saturation 99% 09/02/2024 10: 02 AM CDT Inhaled Oxygen Concentration - - Weight 100.6 kg (221 lb 12.8 oz) 2024 10:10 AM CDT Height 185.4 cm (6' 1) 09/01/2024 10:1 0 AM CDT Body Mass Index 29.26 09/01/2024 10:10 AM CDT Plan of Treatment Health Maintenance Due Date Last Done Comments Depression Screening 1945 Hepatitis C Screening 1945 Hepatitis B Screening 1964 Zoster Vaccine (1 of 2) 1996 Well Visit 65+ 09/19/2011 Fall Risk Assessment 04/16/2024 04/16/2023 Influenza Vaccine (#1) 2024 4, 01/08/2023, 01/07/2022, Additional history exists DTaP/Tdap/Td Vaccine (2 - Td or Tdap) 12/25/2025 12/26/2015, 03/15/2014 Pneumococcal vaccine 65+ Completed 015, 04/06/2013, 03/27/2013 Medical Devices Implanted Type Area Controller Repairer And Tester Device Identifier Shelf Expiration Date Model / Serial / Lot Ji Ra Lead [id number]/ 31/2008 Implanted: (Quantity not on file) Lead [employer] [id number]-46 / / Ji Rv Lead [id number]/ 31/2008 Implanted: (Quantity not on file) Lead [employer] [id number] / / Medtronic Pm [id number]/14 15 Implanted:Qty : 1 on 07/25/2015 Pacemaker Chest Wall Med[employer]onic Cardiac Rhythm Mgmt [id number] / / Procedures Procedure Name Priority Date/Time Associated Diagnosis Comments MRI PELVIS PROSTATE W WO CONTRAST Schedule Routine, Read Routine (OP Routine) 09/02/2024 9:54 AM CDT Elevated PSA XR CHEST PA LATERAL 2 VIEWS Schedule DOUGLAS, Read DOUGLAS (Appt Today, Awaiting Results) 09/01/2024 10:58 AM CDT Pacemaker reprogramming/check Paroxysmal atrial fibrillation (HCC) Sinus node dysfunction (HCC) DEVICE CHECK - IN OFFICE Routine 09/01/2024 9:25 AM CDT Pacemaker reprogramming/check from Last 3 Months Results * MRI Pelvis Prostate W WO Contrast (09/02/2024 9:54 AM CDT) Anatomical Region Laterality Modality Body N/A Magnetic Resonan ce 09/02/2024 12:1 8 PM CDT Impressions 09/02/2024 12:19 PM CDT No suspicious prostatic lesion (PI-RADS 3 or greater). Dictated by: Ramona Porter M.D. The radiology attending physician has personally reviewed this study, and had reviewed and/or edited this written report and agrees with it. Electronically signed by: Jaqueline Bennett M.D. Narrative 09/02/2024 12:19 PM CDT EXAMINATION: MAGNETIC RESONANCE IMAGING OF THE PELVIS WITHOUT AND WITH CONTRAST HISTORY: 78-year-old with elevated PSA of 5.3. No prior biopsy. TECHNIQUE: MR imaging of the prostate gland was performed with a torso phased array coil prior to and following administration of intravenous gadolinium. Protocol: Prostate 3T Contrast: gadoterate 19 mL COMPARISON: None FINDINGS: Prostate volume: 41 cc The prostate transition zone is enlarged with benign prostatic hyperplasia. The prostate was assessed using the PI-RADS version 2.1 scoring system. Staging Information: No enlarged lymph nodes are identified. No suspicious osseous lesions are identified. Other findings: Partially decompressed urinary bladder. No bowel obstruction. No ascites. 1.3 cm left epididymal head cyst. No suspicious osseous lesion. Fat-containing left inguinal hernia. Procedure Note Jaqueline Bennett MD - 09/02/2024 EXAMINATION: MAGNETIC RESONANCE IMAGING OF THE PELVIS WITHOUT AND WITH CONTRAST HISTORY: 78-year-old with elevated PSA of 5.3. No prior biopsy. TECHNIQUE: MR imaging of the prostate gland was performed with a torso phased array coil prior to and following administration of intravenous gadolinium. Protocol: Prostate 3T Contrast: gadoterate 19 mL COMPARISON: None FINDINGS: Prostate volume: 41 cc The prostate transition zone is enlarged with benign prostatic hyperplasia. The prostate was assessed using the PI-RADS version 2.1 scoring system. Staging Information: No enlarged lymph nodes are identified. No suspicious osseous lesions are identified. Other findings: Partially decompressed urinary bladder. No bowel obstruction. No ascites. 1.3 cm left epididymal head cyst. No suspicious osseous lesion. Fat-containing left inguinal hernia. IMPRESSION: No suspicious prostatic lesion (PI-RADS 3 or greater). Dictated by: Ramona Porter M.D. The radiology attending physician has personally reviewed this study, and had reviewed and/or edited this written report and agrees with it. Electronically signed by: Jaqueline Bennett M.D. Mery Kearney MD IMG MRI PROCEDURES Final Result * XR Chest Pa Lateral 2 Views (09/01/2024 10:58 AM CDT) Anatomical Region Laterality Modality Body, Chest N/A Computed Radiogr aphy 09/01/2024 11:1 0 AM CDT Impressions 09/01/2024 11:54 AM CDT Comparison made to outside radiographs to 04/29/2023. Partially imaged right shoulder arthroplasty. Left subclavian approach pacemaker device with 2 leads overlying the superior cavoatrial junction and right ventricle. The leads are intact. There are no abandoned leads. Ventral wall hernia repair mesh. No consolidation. No pleural effusion or pneumothorax. Normal cardiomediastinal silhouette. Dictated by: Rob Casanova MD The radiology attending physician has personally reviewed this study, and had reviewed and/or edited this written report and agrees with it. Electronically signed by: Juani Mejia M.D. Narrative 09/01/2024 11:54 AM CDT EXAMINATION: 2 view chest radiograph Procedure Note Juani Mejia MD - 09/01/2024 EXAMINATION: 2 view chest radiograph IMPRESSION: Comparison made to outside radiographs to 04/29/2023. Partially imaged right shoulder arthroplasty. Left subclavian approach pacemaker device with 2 leads overlying the superior cavoatrial junction and right ventricle. The leads are intact. There are no abandoned leads. Ventral wall hernia repair mesh. No consolidation. No pleural effusion or pneumothorax. Normal cardiomediastinal silhouette. Dictated by: Rob Casanova MD The radiology attending physician has personally reviewed this study, and had reviewed and/or edited this written report and agrees with it. Electronically signed by: Juani Mejia M.D. Geovanna Stanford NP IMG XR PROCEDURES Final R esult * DEVICE CHECK - IN OFFICE (09/01/2024 9:25 AM CDT) Anatomical Region Laterality Modality Other 09/01/2024 2:00 AM CDT Narrative 09/05/2024 9:59 PM CDT Interpretation Summary: Battery and Leads (BL) Normal parameters noted on battery and lead(s) Presenting Rhythm (CA) Ventricular Pacing (PRINTED CIRCUIT DESIGNER) Arrhythmic events (AE) Nonsustained VT event(s) identified Procedure Note Tammy Rajput MD - 09/05/2024 Interpretation Summary: Battery and Leads (BL) Normal parameters noted on battery and lead(s) Presenting Rhythm (CA) Ventricular Pacing (PRINTED CIRCUIT DESIGNER) Arrhythmic events (AE) Nonsustained VT event(s) identified Geovanna Stanford NP [facility] ROB CARRINGTON Final Result from Last 3 Months Insurance [employer] MEDICARE ADVANTAGE [facility] Address: [address] [address] [employer]HC MEDICARE ADVANTAGE [facility] Address: [address] [address] [place] [address] [facility] MEDICARE ADVANTAGE [facility] Address: [address] [address] [place] [address] Advance Directives For more information, please contact: [phone] Documents on File Type Date Recorded Patient [employer] Expl anation Power of Lawn Care Technician 04/16/2023 5:38 AM Care Teams Smearer Relationship Specialty Start Date End Date Pelon Montana MD [address] [place] [address] PCP - General Internal Medicine 04/01/23
--- OUTSIDE RECORDS SUMMARY | 2024-11-07 17:46 | XMS_ITS | Encounter Summary ---
Author Organization [facility] Address [address] [place] [address] Care Team Providers Care Double Bass Player Name Role Phone Unavailable Primary Care Provider Unavailabl e Encounter Details Date Type Department Care Team (Late st Contact Info) Description 10/29/2019 Lab Requisition [facility] DermPath Lab [address] [place] [address] Romeo Orr MD [address] [place] [address] Social History Tobacco Use Types Packs/Day Years Used Date Smoking Tobacco: Never Assessed Sex and Gender Information Value Date Recorded Sex Assigned at Not on file Legal Sex Male 6:29 PM MANAGER DELI Gender Identity Not on file Sexual Orientation Not on file documented as of this encounter Plan of Treatment Not on file documented as of this encounter Procedures Procedure Name Priority Date/Time Associated Diagnosis Comments DERMATOPATHOLOGY Routine 10/28/2019 12:0 0 AM CDT documented in this encounter Results * DERMATOPATHOLOGY (10/28/2019 12:00 AM CDT) Case Report Dermatopathology Report Case: [id number] Authorizing Provider: Romeo Orr MD Collected: 10/28/2019 12:00 AM Ordering Location: [facility] DermPath Lab Received: 10/29/2019 12:23 PM Pathologist: [...] FEATURES OF REGRESSION (L85.8) 0 2:41 PM CDT DERMATOPATHOLOGY LABORATORY Amendment electronically signed by Papito Martinez MD on 11/13/2019 at 1441 CDT at 1233 CDT Clinical History A-B: R/O BCC, KA, SCC. C: R/O BCC, SCC. 0 2:41 PM CDT DERMATOPATHOLOGY LABORATORY Gross Description Specimen A: Received is one formalin filled container labeled with the patient's name and designated right styloid process. The specimen consists of a shave biopsy measuring [id number]. Jar 0. Specimen B: Received is one formalin filled container labeled with the patient's name and designated left ext FA. The specimen consists of a shave biopsy measuring [id number]. Jar 0. Specimen C: Received is one formalin filled container labeled with the patient's name and designated left distal ulnar FA. The specimen consists of a shave biopsy measuring [id number]. Jar 0. 0 2:41 PM CDT DERMATOPATHOLOGY LABORATORY Microscopic Description Specimen A. SKIN, [...] inflammatory infiltrate containing eosinophils. 0 2:41 PM CDT DERMATOPATHOLOGY LABORATORY Disclaimer An external and internal positive and negative controls are appropriate for the histochemical, immunohistochemical and immunofluorescence stain(s) in this case (if any), except where stated explicitly. The performance characteristics of the stain(s) cited in this report were developed and its performance characteristic determined by the Dermatopathology Laboratory at [facility], directed by Dr. Jj Martinez. These tests need not be, and therefore are not, approved by the [place] Food and Drug Administration. The tests are used for clinical purposes. Billing Codes Specimen Charges Stain Charges 03636 47335 87116 1 1 1 11454 1 0 2:41 PM CDT DERMATOPATHOLOGY LABORATORY Embedded Images 0 2:41 PM CDT DERMATOPATHOLOGY LABORATORY Pathology/Cytology TISSUE SPECIMEN FROM SKIN / Unknown 10/28/2019 10/29/2019 12:23 PM CDT Miscellaneous samples (specimen) TISSUE SPECIMEN FROM SKIN / Unknown 10/28/2019 10/29/2019 12:23 PM CDT Miscellaneous samples (specimen) TISSUE SPECIMEN FROM SKIN / Unknown 10/28/2019 10/29/2019 12:23 PM CDT us Romeo Orr MD LAB - PATHOLOGY/CYTOLOGY ORD ERABLES Edited Result - Final DERMATOPATHOLOGY LABORATORY [facility] - Department of Dermatology [facility]/[address] [address], [facility] [phone] documented in this encounter Visit Diagnoses Not on filedocumented in this encounter
--- OUTSIDE RECORDS SUMMARY | 2024-11-07 17:46 | XMS_ITS | Encounter Summary ---
Author Organization [facility] Address [address] [place] [address] Care Team Providers Care Vp Global Marketing [employer] Name Role Phone Unavailable Primary Care Provider Unavailabl e Encounter Details Date Type Department Care Team (Late st Contact Info) Description 02/12/2024 Lab Requisition [facility] - DermPath Lab [address] [place] [id number] Romeo Orr MD [address] [place] [address] Social History Tobacco Use Types Packs/Day Years Used Date Smoking Tobacco: Never Assessed Sex and Gender Information Value Date Recorded Sex Assigned at Not on file Legal Sex Male 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 Gender Identity Not on file Sexual Orientation Not on file documented as of this encounter Plan of Treatment Not on file documented as of this encounter Procedures Procedure Name Priority Date/Time Associated Diagnosis Comments DERMATOPATHOLOGY Routine 02/11/2024 12:0 0 AM CR[employer]INAL DEFENSE LAWYER documented in this encounter Results * DERMATOPATHOLOGY (02/11/2024 12:00 AM CR[employer]AL [employer]ENSE LAWYER) Case Report Dermatopathology Report Case: [id number] Authorizing Provider: Romeo Orr MD Collected: 02/11/2024 12:00 AM Ordering Location: [facility] - Received: 02/12/2024 01:42 PM DermPath Lab Pathologist: Parris Willis MD Specimen: Skin, left upper back 4 3:00 PM CR[employer]AL DEFENSE LAWYER DERMATOPATHOLOGY LABORATORY Final Diagnosis Specimen A. SKIN, left upper back: BASAL CELL CARCINOMA, NODULAR TYPE (C44.519) NOT PRESENT AT SAMPLED MARGIN 4 3:00 PM CRIMINAL DEFENSE LAWYER DERMATOPATHOLOGY LABORATORY at 1500 CRIMINAL DEFENSE LAWYER Clinical History R/O BCC Check margins 4 3:00 PM [facility] DERMATOPATHOLOGY LABORATORY Gross Description Specimen A: Received is one formalin filled container labeled with the patients name and designated left upper back. The specimen consists of a shave removal measuring [id number] mm. Jar 0. 4 3:00 PM [facility] DERMATOPATHOLOGY LABORATORY Microscopic Description Specimen A. SKIN, left upper back: Within the dermis there are aggregates of basaloid cells with a high nuclear to cytoplasmic ratio and peripheral palisading. This lesion is present at the margin of the specimen. 4 3:00 PM [facility] DERMATOPATHOLOGY LABORATORY Disclaimer An external and internal positive and negative controls are appropriate for the histochemical, immunohistochemical and immunofluorescence stain(s) in this case (if any), except where stated explicitly. The performance characteristics of the stain(s) cited in this report were developed and its performance characteristic determined by the Dermatopathology Laboratory at [facility], directed by Dr. Jj Martinez. These tests need not be, and therefore are not, approved by the [place] Food and Drug Administration. The tests are used for clinical purposes. Billing Codes Specimen Charges Stain Charges 54621 1 4 3:00 PM [facility] DERMATOPATHOLOGY LABORATORY Embedded Images 4 3:00 PM [facility] DERMATOPATHOLOGY LABORATORY Pathology/Cytolog y TISSUE SPECIMEN FROM SKIN / Unknown 02/11/2024 02/12/2024 1:42 PM CR[employer]IN[employer] DEFENSE LAWYER Romeo Orr MD LAB - PATHOLOGY/CYTOLOGY ORD ERABLES Final Result DERMATOPATHOLOGY LABORATORY [facility] - Department of Dermatology [address], [address] [phone] documented in this encounter Visit Diagnoses Not on filedocumented in this encounter
--- OUTSIDE RECORDS SUMMARY | 2024-11-07 17:48 | XMS_ITS | Continuity of Care Document ---
Author Organization [facility] Address [address] [place] [phone] Phone Care Team Providers Care Hvac Engineer Name Role Phone Marielos Borjas NP Unavailable [...] Diagnoses Date Provider Providers Copied on Encounter [facility], [address] [place] [address], [id number], tel:[phone] [facility] No Information Indio Arceo. [address] [place] [address], [id number], . tel:[phone] [facility], [address] [place] [address], [id number], tel:[phone] [facility] [place] Presence of cardiac pacemaker Carlos Pang. [address] [place], [place] [address], [place], [id number], . tel:[phone] Referring Provider: Poly Gonzalez, [address], [place], [address]. tel:[phone] lting Provider: [address], [place], [address]. tel:[phone] Family History Family Member Type Diagnosis Age At Onset No Information Payers Payer name Insurance type Covered libertarian ID Authoriza tion(s) [facility] MEDICARE ADVANTAGE PPO [id number] Social History Type Description Quantity Date [...]
--- OUTSIDE RECORDS SUMMARY | 2024-11-07 17:48 | XMS_ITS | Continuity of Care Document ---
Author Organization [facility] Address [address] [place] [address] Phone Care Team Providers Care Seafood Fisherman Name Role Phone Skinny Blevins MD Unavailable Unavailable Procedures Procedure Date Office/outpatient visit,[facility] 2005 Advance Directives Directive Yes / No Effective Date File Name No Information Encounters Encounter Description Practice Location Reason(s) For Visit Diagnoses Date Provider Providers Copied on Encounter Office/outpat ient visit,[facility], [address], [id number], tel:[phone] [facility] No Information [address] Felicity Babb. [address] [facility] [facility] [address], [place], [place], [id number] , . tel: [phone] Family History Family Member Type Diagnosis Age At Onset No Information Payers Payer name Insurance type Covered green party ID Authoriza tion(s) [facility] [id number] Social History Type Description Quantity Date [...]
[2024-11-07 17:52] VITALS: BP 151/85; PULSE 80; RESP 18; TEMP 36.4; O2SAT 99
--- NOTE | 2024-11-07 18:03 | ED.URI ---
HPI - URI/Sore Throat General Chief Complaint: Upper Respiratory Infection Stated Complaint: Cough Time Seen by Provider: 11/07/24 18:04 Source: patient and RN notes reviewed Mode of arrival: ambulatory Limitations: no limitations History of Present Illness HPI Narrative: 71-year-old male presents Express Care complaining of cough, congestion, sinus pressure, chest congestion for proximal 1.5 weeks. Patient was recently in his PCP of his given albuterol inhaler to help with symptoms. Since then patient reports worsening cough, congestion, developing mucopurulent sputum. Patient has any chest pain, shortness of breath, difficulty breathing, nausea, vomiting, diarrhea, fevers, body aches, chills, or any other symptoms. Patient says he feels like the albuterol inhaler helps some but does not completely get rid of the symptoms. Patient denies any history of lung disease. Related Data Home Medications ?Medication ?Instructions ?Recorded ?Confirmed ?Last Taken ?Type acyclovir 400 mg tablet mg 11/07/24 Unknown History fluticasone propionate 50 intranasal 11/07/24 Unknown History mcg/actuation nasal spray,suspension ipratropium bromide 17 inhalation 11/07/24 Unknown History mcg/actuation HFA aerosol inhaler (Atrovent HFA) ketorolac 0.5 % eye drops drp 11/07/24 Unknown History lorazepam 0.5 mg tablet mg 11/07/24 Unknown History loteprednol etabonate 0.5 % eye drp 11/07/24 Unknown History drops,suspension rivaroxaban 20 mg tablet (Xarelto) mg 11/07/24 Unknown History rosuvastatin 20 mg tablet mg 11/07/24 Unknown History tavaborole 5 % topical solution topical 11/07/24 Unknown History with applicator Allergies Allergy/AdvReac Type Severity Reaction Status Date / Time morphine Allergy Severe STOPS MY Verified 11/07/24 17:53 BREATHING shellfish derived Allergy Severe Swelling Verified 11/07/24 17:53 of Lip/Tongue/Throat iodine Allergy Mild HIVES Verified 11/07/24 17:53 adhesive Allergy Unknown ADHESIVE Verified 11/07/24 17:53 TAPE CAUSES BLISTERS ON SKIN codeine AdvReac Mild Headache Verified 11/07/24 17:53 Review of Systems Review of Systems: CONSTITUTIONAL: Denies fever, chills, body aches, or sweats. EYES: Denies visual changes, redness, or discharge. ENT: Denies rhinorrhea, sore throat, or otalgia. Positive for congestion, and sinus pressure. CARDIOVASCULAR: Denies chest pain, palpitations, or edema. RESPIRATORY positive for cough. Negative for wheezing or Dyspnea. GASTROINTESTINAL: Denies abdominal pain, nausea, vomiting, or diarrhea. GENITOURINARY: Denies dysuria or hematuria. SKIN: Denies rash or itching. MUSCULOSKELETAL: Denies back pain, joint pain, or myalgia. NEUROLOGIC: Denies headache, numbness, or weakness. PSYCHIATRIC: Denies anxiety or depression. All other systems reviewed are negative, except as documented in HPI. [facility] Past Medical History Medical History Arthritis rt shoulder Right shoulder injury Umbilical hernia Pacemaker Afib Chronically occurring for the past 10-12 years Surgical History Surgical History Status post left rotator cuff repair History of left knee surgery S/P right rotator cuff repair History of umbilical hernia repair Social History Social History Gender identity (if verbalized by the patient): Male Comments At the time of my signature, I reviewed and agree with the nursing past medical, surgical, social, and family history. There is no relevant family history pertinent to the patient complaint. Exam Narrative: GENERAL: This is a well-nourished, well-developed adult, in no apparent distress. They are non ill-appearing, nontoxic appearing. HEAD: normocephalic, atraumatic. EYES: Sclera clear/white. Conjunctiva normal. Vision is grossly intact. Extraocular movements intact EARS: External ears normal, auditory canals clear and without drainage, TMs normal without perforation. Hearing grossly intact. NOSE: External nose normal with no obvious nasal discharge, nasal turbinates erythematous bilaterally, no rhinorrhea. THROAT: Mucous membranes moist, posterior pharynx body without erythema. No exudate. Uvula midline. Postnasal drip present. NECK: Neck supple, non-tender without lymphadenopathy, masses or thyromegaly. CARDIOVASCULAR: Regular rate and rhythm without murmurs, gallops, or rubs. RESPIRATORY: Lungs are coarse to left lower lobe. End-expiratory wheeze to the bilateral lower lobes. Breath sounds equal bilaterally. Respiratory rate normal, respiratory effort nonlabored, no respiratory distress SKIN: warm, Dry, intact with no suspicious lesions or rash, good texture and turgor. NEURO: awake, alert, and oriented to person, place and time. There were no obvious focal neurologic abnormalities. EXTREMITIES: No joint tenderness, effusion, or edema noted. BACK: Nontender without deformity. No CVA tenderness. Course Course Emergency Course: Patient reports feeling unchanged after DuoNeb. Repeat auscultation shows improved aeration, wheezing has resolved. Level of Care: Express Care Visit Vital Signs Vital signs: Vital Signs Temperature 97.6 F 11/07/24 17:52 Pulse Rate 80 11/07/24 17:52 Respiratory Rate 18 11/07/24 17:52 Blood Pressure 151/85 H 11/07/24 17:52 Pulse Oximetry 99 11/07/24 17:52 Oxygen Delivery Room Air 11/07/24 17:52 Temperature 97.6 F 11/07/24 17:52 Pulse Rate 80 11/07/24 17:52 Respiratory Rate 18 11/07/24 17:52 Blood Pressure 151/85 H 11/07/24 17:52 Pulse Oximetry 99 11/07/24 17:52 Oxygen Delivery Room Air 11/07/24 17:52 Reviewed MDM - URI/Sore Throat MDM Narrative Medical decision making narrative: Patient given duo nebulizer treatment. Patient reports feeling unchanged. Repeat auscultation is improved aeration. Wheezing has resolved. Chest x-ray shows possible pneumonia left lower lobe. Patient's symptoms are consistent with pneumonia. Will treat him with Augmentin and Zithromax. Patient already has a prescription for Atrovent inhaler. Strict ER precautions discussed with patient specially develops difficulty breathing, shortness of breath, chest pain, fevers, confusion, unable to keep anything down, or any serious concerns. Discussed physical exam findings. Advised supportive measures and signs/symptoms to go to the ER. Pt is appropriate for outpt treatment and f/u. Differential Diagnosis Differential diagnosis: Likely upper respiratory infection, viral infection, bronchitis and other (Pneumonia) Imaging Data Radiologist's impression: ITS Impressions Chest X-Ray 11/07/24 18:09 IMPRESSION: Subsegmental left basilar atelectasis/consolidation Critical Care Time Critical Care Time Critical Care Time: No Discharge Plan Discharge Clinical Impression: Pneumonia Qualifiers: Pneumonia type: due to unspecified organism Laterality: left Lung location: lower lobe of lung Qualified Code(s): J18.9 - Pneumonia, unspecified organism Patient Disposition: Home Condition: Stable Instructions: Antibiotic Form, Pneumonia (ED) Additional Instructions: Take antibiotics as directed until complete. eat small frequent meals. Get lots of rest and drink fluids. Tylenol as needed for pain or fevers. Follow instructions on the bottle. Use your albuterol inhaler as needed for shortness of breath or wheezing. Follow-up with PCP in 3-5 days. If you developed chest pain, shortness of breath, weakness, difficulty breathing, uncontrollable fevers, nausea, vomiting, confusion, or any serious concerns please go to the ER immediately. Patient Language: Slovak Prescriptions: New azithromycin 250 mg tablet See Rx Instructions .ROUTE .COMPLEX Qty: 6 0RF Rx Instructions: For 250 mg dose pack: take 500 mg today (day 1), then 250 mg for 4 days (days 2-5) amoxicillin-pot clavulanate 875-125 mg tablet 1 tablet PO Q12H 7 Days Qty: 14 0RF No Action acyclovir 400 mg tablet ketorolac 0.5 % drops lorazepam 0.5 mg tablet loteprednol etabonate 0.5 % drops,suspension fluticasone propionate 50 mcg/actuation spray,suspension INTRANASAL rosuvastatin 20 mg tablet Atrovent HFA 17 mcg/actuation HFA aerosol inhaler INHALATION Xarelto 20 mg tablet tavaborole 5 % solution with applicator TOPICAL Follow-up/Referrals: Rubén,Pelon Galvez MD [Primary Care Provider] - Time of Disposition: 18:29
[2024-11-07] MEDS: IPRATROPIUM 0.5 MG/ALBUTEROL SULFATE 2.5 MG AMPUL.NEB 3 ML INHALATION (18:08)
== END 2024-11-07 18:32 | disposition home or self-care (01) ==
PROVIDERS: PCP Internal Medicine
DX: J18.9 Pneumonia, unspecified organism (principal); I48.91 Unspecified atrial fibrillation; M19.011 Primary osteoarthritis, right shoulder; Z95.0 Presence of cardiac pacemaker
CPT/HCPCS: 71046; 94640; 99203; G0463

== ENCOUNTER 2024-12-11 00:54 | Day surgery (SDC) | payer MEDICARE, SELFPAY ==
[2024-12-07 14:37] VITALS: BMI 29.1
--- OUTSIDE RECORDS SUMMARY | 2024-12-10 09:40 | XMS_ITS | Encounter Summary ---
Author Organization [facility] Address [address] [place] [address] Care Team Providers Care Evening Or Night Nurse Supervisor Name Role Phone Pelon Montana MD Primary Care Provider [phone] Reason for Referral * Consultation (Routine) - New Request Specialty Diagnoses / Procedures Referred By John peralta Referred To Contact ORTHOPAEDICS Diagnoses Right hip pain Procedures OFFICE/OUTPATIENT NEW LOW MDM 30-44 MINUTES OFFICE/OUTPT VISIT,NEW,LEVL IV OFFICE/OUTPT VISIT,NEW,LEVL V OFFICE/OUTPT VISIT,EST,LEVL III OFFICE/OUTPT VISIT,EST,LEVL IV OFFICE/OUTPT VISIT,EST,LEVL V Pelon Montana MD [address] [place] [address] Phone: tel: fax: Referral ID Status Reason Start Date Expiration Date Visits Requested Visits Authorized [id number] New Request Specialty Services 12/10/2024 12/10/2025 1 1 Scheduling Instructions Refer to Dr. Colin Nicholas at [facility] for right hip pain Reason for Visit * Reason Comments Follow Up Atrial Fibrillation Benign Prostatic Hypertrophy Hyperlipidemia Pneumonia Pt was dx with PNA a bout 1 month ago. He c/o linger cough with yellow sputum. Pt is scheduled for a colonoscopy tomorrow. Foot Pain Pt c/o continued B/L foot pain. He did start folic acid supplement after being diagnosed with folic acid deficiency, but he doesn't feel this has helped. Hip Pain Pt c/o RT hip pain a nd spasm of the muscle of his RT hip. Encounter Details Date Type Department Care Team (Late st Contact Info) Description 12/10/2024 9:40 AM CDT Office Visit [facility] Family [facility] Internal Medicine [address] [id number] [place] [address] Pelon Montana MD [address] [place] [address] Follow Up; Atrial Fibrillation; Benign Prostatic Hypertrophy; Hyperlipidemia; Pneumonia (Pt was dx with PNA about 1 month ago. He c/o linger cough with yellow sputum. Pt is scheduled for a colonoscopy tomorrow. ); Foot Pain (Pt c/o continued B/L foot pain. He did start folic acid supplement after being diagnosed with folic acid deficiency, but he doesn't feel this has helped. ); Hip Pain (Pt c/o RT hip pain and spasm of the muscle of his RT hip. ) Social History Tobacco Use Types Packs/Day Years Used Date Smoking Tobacco: Never Smokeless Tobacco: Never Alcohol Use Standard Drinks/Week Comments Not Currently 0 (1 standard drink = 0.6 oz pur e alcohol) PHQ-2 Answer Date Recorded Patient Health Questionnaire-2 Score 0 05/05/2024 Sex and Gender Information Value Date Recorded Sex Assigned at Male 05/05/2024 10:21 AM ACTIVITIES ATTENDANT Legal Sex Male 1:59 PM CDT Gender Identity Not on file Sexual Orientation Not on file documented as of this encounter Last Filed Vital Signs Vital Sign Reading Time Taken Comments Blood Pressure 126/80 12/10/2024 10:19 AM CDT Pulse 57 12/10/2024 10:19 AM CDT Temperature 36.7 C (98.1 F) 12/10/2024 10:19 AM CDT Respiratory Rate 16 12/10/2024 10:19 AM CDT Oxygen Saturation 97% 12/10/2024 10:19 AM CDT Inhaled Oxygen Concentration - - Weight 98.2 kg (216 lb 6.4 oz) 12/10/2024 10:19 AM CDT Height 185.4 cm (6' 1) 12/10/2024 10:19 AM CDT Body Mass Index 28.55 12/10/2024 10:19 AM CDT documented in this encounter Plan of Treatment Upcoming Encounters Date Type Department Care Team (Late st Contact Info) Description 04/01/2025 10:20 AM ACTIVITIES ATTENDANT Office Visit [facility] [address] [place] [address] Pelon Montana MD [address] [place] [address] Scheduled Referrals Name Type Priority Associated Diagnoses Orde r Schedule Ambulatory referral to Orthopedics (OTHER) Referral Routine Right hip pain Ordered: 12/10/2024 documented as of this encounter Results * XR HIP RT 2V (12/10/2024 11:12 AM CDT) Anatomical Region Laterality Modality Hip Radiographic Leatha ging 12/10/2024 6:38 PM CDT Impressions 12/10/2024 6:39 PM CDT IMPRESSION: Mild degenerative changes. No acute bony abnormalities. Ordered By: PELON MONTANA Interpreted By: Kvng De Oliveira MD, 12/10/2024 6:38 PM Narrative 12/10/2024 6:39 PM CDT [facility] [address] [place] [address] Examination: XR HIP RT 2V Exam time: 12/10/2024 10:54 AM Clinical history: Chronic right hip pain. Comparison: No previous. Technique: 2 views. . Findings: There is no malalignment. No acute bony abnormalities. There are mild degenerative changes. The pubic bone is intact Procedure Note Kvng De Oliveira MD - 12/10/2024 [facility] [address] [address] Examination: XR HIP RT 2V Exam time: 12/10/2024 10:54 AM Clinical history: Chronic right hip pain. Comparison: No previous. Technique: 2 views. . Findings: There is no malalignment. No acute bony abnormalities. There aremild degenerative changes. The pubic bone is intact IMPRESSION: Mild degenerative changes. No acute bony abnormalities. Ordered By: PELON MONTANA Interpreted By: Kvng De Oliveira MD, 12/10/2024 6:38 PM Pelon Montana MD GENERAL IMAGING Final Result * XR CHEST PA+LAT (12/10/2024 11:12 AM CDT) Anatomical Region Laterality Modality Chest Radiographic Leatha ging 12/10/2024 3:18 PM CDT Impressions 12/10/2024 3:37 PM CDT IMPRESSION: 1. There is no acute cardiopulmonary process. 2. Unable to compared to previous imaging, no consolidation is appreciated. 3. Questionable right atrial lead MALPOSITION. The attending radiologist has reviewed the image(s) and agrees with the content of this report. Ordered By: PELON MONTANA Interpreted By: Selene Orozco MD, 12/10/2024 3:18 PM Narrative 12/10/2024 3:37 PM CDT [facility] [place] [address] PROCEDURE: XR CHEST PA+LAT. 12/10/2024 10:49 AM. TECHNIQUE: 2 views (PA and Lateral) of the chest were performed. HISTORY: One-month follow-up pneumonia. COMPARISON: None FINDINGS: Support Devices: 2-lead pacemaker with questionable lead placement. Right atrial lead appears to be in the cavoatrial junction. Right ventricle lead appears in good position. Partially visualized right shoulder total arthroplasty. Cardiac Silhouette/Mediastinum/Aliyah: The cardiac silhouette is within normal limits. Pulmonary vasculature is within normal limits. Atherosclerotic aorta is appreciated. Lungs/Pleural Spaces: No pneumothorax, pleural effusions, or parenchymal consolidations. Chest Wall/Diaphragm/Upper Abdomen: Spondylosis, spondylolisthesis and degenerative disc disease Procedure Note Joseluis David MD - 12/10/2024 [facility] Family [facility] Internal Medicine - [address] [address] PROCEDURE: XR CHEST PA+LAT. 12/10/2024 10:49 AM. TECHNIQUE: 2 views (PA and Lateral) of the chest were performed. HISTORY: One-month follow-up pneumonia. COMPARISON: None FINDINGS: Support Devices: 2-lead pacemaker with questionable lead placement. Rightatrial lead appears to be in the cavoatrial junction. Right ventricle leadappears in good position. Partially visualized right shoulder totalarthroplasty. Cardiac Silhouette/Mediastinum/Aliyah: The cardiac silhouette is withinnormal limits. Pulmonary vasculature is within normal limits.Atherosclerotic aorta is appreciated. Lungs/Pleural Spaces: No pneumothorax, pleural effusions, or parenchymalconsolidations. Chest Wall/Diaphragm/Upper Abdomen: Spondylosis, spondylolisthesis anddegenerative disc disease IMPRESSION: 1. There is no acute cardiopulmonary process. 2. Unable to compared to previous imaging, no consolidation isappreciated. 3. Questionable right atrial lead MALPOSITION. The attending radiologist has reviewed the image(s) and agrees with thecontent of this report. Ordered By: PELON MONTANA Interpreted By: Selene Orozco MD, 12/10/2024 3:18 PM Pelon Montana MD GENERAL IMAGING Final Result documented in this encounter Visit Diagnoses Diagnosis Mixed hyperlipidemia- Primary Benign prostatic hyperplasia with urinary frequency Paroxysmal atrial fibrillation (CMS/HCC HHS/HCC) Atrial fibrillation Cardiac pacemaker in situ Folic acid deficiency Other B-complex deficiencies Pneumonia of left lung due to infectious organism, unspecified part of lung Right hip pain Pain in joint, pelvic region and thigh documented in this encounter Care Teams Evening Or Night Nurse Supervisor Relationship Specialty Start Date End Date Pelon Montana MD [address] [place] [address] PCP - General INTERNAL MEDICINE 02/20/23 documented as of this encounter
--- OUTSIDE RECORDS SUMMARY | 2024-12-11 00:57 | XMS_ITS | Encounter Summary ---
Author Organization [facility] Address [address] [place] [address] Care Team Providers Care Lithographic Photographer Apprentice Name Role Phone Pelon Montana MD Primary Care Provider [phone] Encounter Details Date Type Department Care Team (Latest Contact Info) Description 12/10/2024 Travel Social History Tobacco Use Types Packs/Day Years Used Date Smoking Tobacco: Never Smokeless Tobacco: Never Alcohol Use Standard Drinks/Week Comments Not Currently 0 (1 standard drink = 0.6 oz pur e alcohol) PHQ-2 Answer Date Recorded Patient Health Questionnaire-2 Score 0 05/05/2024 Sex and Gender Information Value Date Recorded Sex Assigned at Male 05/05/2024 10:21 AM YEAST CULTURE OPERATOR Legal Sex Male 1:59 PM CDT Gender Identity Not on file Sexual Orientation Not on file documented as of this encounter Plan of Treatment Upcoming Encounters Date Type Department Care Team (Late st Contact Info) Description 04/01/2025 10:20 AM YEAST CULTURE OPERATOR Office Visit [facility] Family & Internal Medicine [address] [address] Pelon Montana MD [address] [place] [address] documented as of this encounter Visit Diagnoses Not on filedocumented in this encounter Care Teams Lithographic Photographer Apprentice Relationship Specialty Start Date End Date Pelon Montana MD [address] [place] [address] PCP - General INTERNAL MEDICINE 02/20/23 documented as of this encounter
--- OUTSIDE RECORDS SUMMARY | 2024-12-11 00:57 | XMS_ITS | Encounter Summary ---
Author Organization [facility] Address [address] [facility] [address] Care Team Providers Care Component Lab Tech Name Role Phone Unavailable Primary Care Provider Unavailabl e Encounter Details Date Type Department Care Team (Late st Contact Info) Description 10/29/2019 Lab Requisition [facility] DermPath Lab [address] [place] [address] Romeo Orr MD [address] [place] [address] Social History Tobacco Use Types Packs/Day Years Used Date Smoking Tobacco: Never Assessed Sex and Gender Information Value Date Recorded Sex Assigned at Not on file 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 Gender Identity Not on file Sexual Orientation Not on file documented as of this encounter Plan of Treatment Not on file documented as of this encounter Procedures Procedure Name Priority Date/Time Associated Diagnosis Comments DERMATOPATHOLOGY Routine 10/28/2019 12:0 0 AM CDT documented in this encounter Results * DERMATOPATHOLOGY (10/28/2019 12:00 AM CDT) Case Report Dermatopathology Report Case: [id number] Authorizing Provider: Romeo Orr MD Collected: 10/28/2019 12:00 AM Ordering Location: [facility] DermPath Lab Received: 10/29/2019 12:23 PM [...] DERMATOPATHOLOGY LABORATORY Amendment electronically signed by Papito Martinze MD on 11/13/2019 at 1441 CDT at 1233 CDT Clinical History A-B: R/O BCC, KA, SCC. C: R/O BCC, SCC. 0 2:41 PM CDT DERMATOPATHOLOGY LABORATORY Gross Description Specimen A: Received is one formalin filled container labeled with the patient's name and designated right styloid process. The specimen consists of a shave biopsy measuring [id number]. Jar 0. Specimen B: Received is one formalin filled container labeled with the patient's name and designated left ext FA. The specimen consists of a shave biopsy measuring [id number]. Jar 0. Specimen C: Received is one formalin filled container labeled with the patient's name and designated left distal ulnar FA. The specimen consists of a shave biopsy measuring [id number]. Jar 0. 0 2:41 PM CDT DERMATOPATHOLOGY [...] purposes. Billing Codes Specimen Charges Stain Charges 75394 22010 40430 1 1 1 [id number] 1 0 2:41 PM CDT DERMATOPATHOLOGY LABORATORY [...] ERABLES Edited Result - Final DERMATOPATHOLOGY LABORATORY [facility] - Department of Dermatology [facility]/[address] [address], [facility] [phone] documented in this encounter Visit Diagnoses Not on filedocumented in this encounter
--- OUTSIDE RECORDS SUMMARY | 2024-12-11 00:57 | XMS_ITS | Encounter Summary ---
Author Organization [facility] Address [address] [facility] [place] [address] Care Team Providers Care Basin Operator Name Role Phone Unavailable Primary Care Provider Unavailabl e Encounter Details Date Type Department Care Team (Late st Contact Info) Description 11/22/2017 Lab Requisition [facility] Care DermPath Lab [address] [facility], [place] [phone] Erica Gordon MD [address] [facility] [address] [place] [address] Social History Tobacco Use Types Packs/Day Years Used Date Smoking Tobacco: Never Assessed Sex and Gender Information Value Date Recorded Sex Assigned at Not on file 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 The margin is inked green. Jar 0. [facility] Dermatopathology Laboratory performed the technical component [...] characteristic determined by the Dermatopathology Laboratory at [facility]. These tests need not be, and therefore are not, approved by the [place] Food and Drug Administration. The tests are used for clinical purposes. 8 12:18 PM T DERMATOPATHOLOGY LABORATORY at 1218 CDT Pathology/Cytolog y TISSUE SPECIMEN FROM SKIN / Unknown 11/21/2017 11/22/2017 6:29 AM CDT Erica Gordon MD LAB - PATHOLOGY/CYTOLOGY OR DERABLES Final Result DERMATOPATHOLOGY LABORATORY [facility] - Department of Dermatology [address] [place] [address], [address] [place] [address], [facility] [[email or web address]] [phone] documented in this encounter Visit Diagnoses Not on filedocumented in this encounter
--- OUTSIDE RECORDS SUMMARY | 2024-12-11 00:57 | XMS_ITS | Clinical Summary ---
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 Gender Identity Not on file Sexual Orientation Not on file Occupation Industry Job Start Date Job End Date [employer] Not on file Not on file Not on filippo e Obstetrics History Last Filed Vital Signs Vital Sign Reading Time Taken Comments Blood Pressure 137/72 09/02/2024 10:02 AM CDT Pulse 60 09/02/2024 10:02 AM CDT Temperature 35.9 C (96.7 F) 04/16/2023 9:05 AM KNITTING MACHINE OPERATOR HELPER Respiratory Rate 18 04/16/2023 9:35 AM KNITTING MACHINE OPERATOR HELPER Oxygen Saturation 99% 09/02/2024 10: 02 AM [...] Assessment 04/16/2024 04/16/2023 Influenza Vaccine (#1) 2024 , 01/08/2023, 01/07/2022, Additional history exists DTaP/Tdap/Td Vaccine (2 - Td or Tdap) 12/25/2025 12/26/2015, 03/15/2014 Pneumococcal vaccine 65+ Completed 015, 04/06/2013, 03/27/2013 Medical Devices Implanted Type Area Tool Liaison Device Identifier Shelf Expiration Date Model / Serial / Lot Ji Ra Lead [id number]/ 31/2008 Implanted: (Quantity not on file) Lead [employer] [id number] / / Ji Rv Lead [id number]/ 31/2008 Implanted: (Quantity not on file) Lead [employer] [id number] / / Medtronic Pm [id number] Implanted:Qty : 1 on 07/25/2015 Pacemaker Chest Wall Med[employer]onic Cardiac Rhythm Mgmt [id number] / / Insurance UHC MEDICARE ADVANTAGE [facility] MEDICARE ADVANTAGE [facility] MEDICARE ADVANTAGE Advance Directives For more information, please contact: [phone] Documents on File Type Date Recorded Patient Financial Institution Vice President Expl anation Power of Process Controller 04/16/2023 5:38 AM Care Teams Blogs Manager Relationship Specialty Start Date End Date Pelon Montana MD [address] [place] [phone] PCP - General Internal Medicine 04/01/23
--- OUTSIDE RECORDS SUMMARY | 2024-12-11 00:58 | XMS_ITS | Clinical Summary ---
Author Organization [facility] Address [facility] [place] [address] Care Team Providers Care Tube And Manifold Builder Name Role Phone Pelon Montana MD Primary Care Provider [phone] Allergies Active Allergy Reactions Criticality Noted Date Comments Codeine Headache Low 11/07/2024 Iodine Anaphylaxis High 02/20/2023 Morphine Other (see comment) High 11/07/2024 Stops my breathing Shellfish Allergy Anaphylaxis High 02/20/2023 Medications fluticasone [...] 5 Active ipratropium (ATROVENT HFA) 17 MCG/ACT inhalerIndicatio ns:Cough, unspecified type Inhale 2 puffs into the lungs every 6 (six) hours. 12.9 g 5 Active amoxicillin-clav ulanate (AUGMENTIN) 875-125 MG tablet Take 1 tablet (875 mg total) by mouth every 12 (twelve) hours. for 7 days 5 Active benzonatate (TESSALON) 200 MG capsuleIndicatio ns:Pneumonia due to infectious organism, unspecified laterality, unspecified part of lung Take 1 capsule (200 mg total) by mouth 3 (three) times daily as needed for Cough. 30 capsule 5 Active folic acid (FOLVITE) 1 MG tablet Take 2 tablets (2 mg total) by mouth daily. Active cefdinir (OMNICEF) 300 MG Cap capsuleIndicatio ns:Pneumonia due to infectious organism, unspecified laterality, unspecified part of lung Take 2 capsules (600 mg total) by mouth daily for 5 days. 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 ) 12/10/2024 Travel 11/12/2024 11:00 AM CDT Office Visit [facility] Internal [address] [phone] Deborah Ballesteros, DO Pneumonia (Pt is here for f/u for pneumonia. Cough is still present with clear sputum, wakes him at night. ) 11/12/2024 Travel 11/09/2024 Orders Only [facility] Internal [address] [phone] Deborah Ballesteros, DO 11/07/2024 Scan Leads Direct SRVCS Scanned, Doc Med Group Image (SCAN) 11/06/[address] [phone] Deborah Ballesteros, DO Advice (Nurse Triage - After Hours ([id number])/) 11/03/2024 10:00 AM CDT Office Visit [facility] Internal [address] [phone] Deborah Ballesteros, DO Cough (Pt is here today for a dry cough x 5 days, today the cough is becoming more productive. Otc NyQuil, Cold/flu Alkaseltzer, tylenol for headache. ) 11/03/2024 Telephone [facility] Internal [address] [phone] Pelon Montana MD Medication Request 11/03/2024 Travel 10/27/2024 9:40 AM CDT Allied Health/Nurse Visit [address] [phone] Pelon Montana MD Allied Health Visit 10/27/2024 Travel 10/26/2024 Telephone [facility] Internal [address] [phone] Pelon Montana MD Bite 10/14/2024 Scan [facility] INFO SRVCS Scanned, Doc Med Group 09/30/2024 Scan [facility] HEALTH INFO SRVCS Scanned, Doc Med Group 09/21/2024 Scan [facility] HEALTH INFO SRVCS Scanned, Doc Med Group from Last 3 Months Immunizations Immunization Administration [...] 20) 01/19/2022 Tdap (Adacel) 10/27/2024 Tdap (Generic) 10/27/2024,12/26/2015 Tetanus Toxoid Inj 03/15/2014 Family History Medical [...] Sex Assigned at Male 05/05/2024 10:21 AM ELECTRONIC REPAIR TROUBLESHOOTER Legal Sex Male 1:59 PM CDT Gender [...] Mass Index 28.55 12/10/2024 10:19 AM CDT Plan of Treatment Upcoming Encounters Date Type Department Care Team (Late st Contact Info) Description 04/01/2025 10:20 AM ELECTRONIC REPAIR TROUBLESHOOTER Office Visit [facility] Family & Internal Medicine - [address] [phone] Pelon Montana MD [address] [place] [address] Health Maintenance Due Date Last Done Comments Hepatitis C 1963 Annual Medicare Wellness Visit 09/19/2011 COVID-19 Vaccine ( season) 2024 01/17/2024, 01/31/2023, 12/06/2021, Additional history exists Zoster Vaccines (1 of 2) 12/10/2025 Pos tponed from 1996 (Going to Outside Clinic) DTaP, Tdap and Td Vaccines (4 - Td or Tdap) 10/27/2034 10/27/2024, 10/27/2024, 12/26/2015, Additional history exists Pneumococcal Vaccine: 50+ Years Completed 01/19/2022, 01/11/2015, 04/06/2013, Additional history exists RSV Immunization or 60+ Years Completed 02/20/2023 PHQ-2 (Physician [place]) Completed 05/05/2024 Meningococcal B Vaccine Aged Out No l onger eligible based on patient's age to complete this topic Meningococcal Vaccine Aged Out No olga marli eligible based on patient's age to complete this topic RSV Immunizations Under 20 Months Aged Out No longer eligible based on patient's age to complete this topic Procedures Procedure Name Priority Date/Time Associated Diagnosis Comments XR HIP RT 2V Routine 12/10/2024 11:12 AM CDT Right hip pain XR CHEST PA+LAT Routine 12/10/2024 11:12 AM CDT Pneumonia of left lung due to infectious organism, unspecified part of lung IMAGE GENERIC 11/07/2024 from Last 3 Months Results * XR HIP RT 2V (12/10/2024 11:12 AM CDT) Anatomical Region Laterality Modality Hip Radiographic Leatha ging 12/10/2024 6:38 PM CDT Impressions 12/10/2024 6:39 PM CDT IMPRESSION: Mild degenerative changes. No acute bony abnormalities. Ordered By: PELON MONTANA Interpreted By: Kvng De Oliveira MD, 12/10/2024 6:38 PM Narrative 12/10/2024 6:39 PM CDT [facility] [place] [address] Examination: XR HIP RT 2V Exam time: 12/10/2024 10:54 AM Clinical history: Chronic right hip pain. Comparison: No previous. Technique: 2 views. . Findings: There is no malalignment. No acute bony abnormalities. There are mild degenerative changes. The pubic bone is intact Procedure Note Kvng De Oliveira MD - 12/10/2024 [facility] [place] [address] Examination: XR HIP RT 2V Exam time: [...] 3:18 PM Narrative 12/10/2024 3:37 PM CDT [facility] [place] [address] PROCEDURE: XR CHEST PA+LAT. 12/10/2024 10:49 AM. [...] Procedure Note Joseluis David MD - 12/10/2024 [facility] Internal [place] [id number] PROCEDURE: XR CHEST PA+LAT. 12/10/2024 10:49 AM. [...] Montana MD GENERAL IMAGING Final Result * IMAGE GENERIC (11/07/2024) Anatomical Region Laterality Modality Other 11/07/2024 us Doc Med Group Scanned SCANNING Final Resu lt from Last 3 Months Insurance MED [facility] MEDICARE Care Teams Tube And Manifold Builder Relationship Specialty Start Date End Date Pelon Montana MD [address] [place] [address] PCP - General INTERNAL MEDICINE 02/20/23
--- OUTSIDE RECORDS SUMMARY | 2024-12-11 00:58 | XMS_ITS | Clinical Summary ---
Author Organization [facility] Address [address] [place] [address] Care Team Providers Care Exhibition Designer Name Role Phone Unavailable Primary Care Provider Unavailabl e Source Comments [facility],non-owned Affiliates and Associated Physician Practices is amultiple site organization consisting of ambulatory clinics and hospital sitesin [place], [place], [place] and [place]. This disclosure is being madepursuant to the Care Everywhere program and may not contain all information available regarding this patient. 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
--- OUTSIDE RECORDS SUMMARY | 2024-12-11 00:58 | XMS_ITS | Encounter Summary ---
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
--- OUTSIDE RECORDS SUMMARY | 2024-12-11 00:58 | XMS_ITS | Encounter Summary ---
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, including hip Social History Tobacco Use Types Packs/Day Years Used Date Smoking Tobacco: Never Assessed Sex and Gender Information Value Date Recorded Sex Assigned at Not on file 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 Gender Identity Not on file Sexual Orientation Not on file documented as of this encounter Plan of Treatment Not on file documented as of this encounter Procedures Procedure Name Priority Date/Time Associated Diagnosis Comments DERMATOPATHOLOGY Routine 05/30/2023 12:0 0 AM LICENSED NURSING ASSISTANT 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 Check margins. 1:26 PM [facility] DERMATOPATHOLOGY LABORATORY Gross Description Specimen A: Received is one formalin filled container labeled with the patient's name and designated right lateral superior lower leg. The specimen consists of a non-oriented ellipse of skin measuring 20w40q9 mm. The epidermal surface is unremarkable. The [...] of a non-oriented ellipse of skin measuring 55q71t2 mm. The epidermal surface is unremarkable. The margin is inked green. The 12 o'clock and 6 o'clock tips are submitted in cassette 1. The remainder of the ellipse is serially sectioned and submitted in cassette 2-3. Jar 0. 1:26 PM [facility] DERMATOPATHOLOGY LABORATORY Microscopic Description Specimen A. SKIN, [...] squamous cell carcinoma is identified. 1:26 PM [facility] DERMATOPATHOLOGY LABORATORY Disclaimer An external and internal positive and negative controls are appropriate for the histochemical, immunohistochemical and immunofluorescence stain(s) in this case (if any), except where stated explicitly. The performance characteristics of the stain(s) cited in this report were developed and its performance characteristic determined by the Dermatopathology Laboratory at [facility], directed by Dr. Jj Martinez. These tests need not be, and therefore are not, approved by the [place] Food and Drug Administration. The tests are used for clinical purposes. Billing Codes Specimen Charges Stain Charges 45223 33170 1 1 4 1:26 PM CDT DERMATOPATHOLOGY LABORATORY Embedded Images 1:26 PM CDT DERMATOPATHOLOGY LABORATORY Pathology/Cytology TISSUE SPECIMEN FROM SKIN / Unknown 05/30/2023 05/31/2023 12:20 PM LICENSED NURSING ASSISTANT Miscellaneous samples (specimen) TISSUE SPECIMEN FROM SKIN / Unknown 05/30/2023 05/31/2023 12:20 PM LICENSED NURSING ASSISTANT Jalen Moreno MD LAB - PATHOLOGY/CYTOLOGY ORDE SULLY Final Result DERMATOPATHOLOGY LABORATORY [facility] - Department of Dermatology [address] [phone] documented in this encounter Visit Diagnoses Diagnosis 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
--- OUTSIDE RECORDS SUMMARY | 2024-12-11 00:58 | XMS_ITS | Encounter Summary ---
Author Organization [facility] Address [address] [place] [address] Care Team Providers Care Impersonator Character Name Role Phone Unavailable Primary Care Provider Unavailabl e Encounter Details Date Type Department Care Team (Late st Contact Info) Description 02/12/2024 Lab Requisition [facility] - DermPath Lab [address] [place] [phone] Romeo Orr MD [address] [place] [address] Social History Tobacco Use Types Packs/Day Years Used Date Smoking Tobacco: Never Assessed Sex and Gender Information Value Date Recorded Sex Assigned at Not on file 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 Gender Identity Not on file Sexual Orientation Not on file documented as of this encounter Plan of Treatment Not on file documented as of this encounter Procedures Procedure Name Priority Date/Time Associated Diagnosis Comments DERMATOPATHOLOGY Routine 02/11/2024 12:0 0 AM TELECOMMUNICATIONS ANALYST documented in this encounter Results * DERMATOPATHOLOGY (02/11/2024 12:00 AM TELECOMMUNICATIONS ANALYST) Case Report Dermatopathology Report Case: [id number] Authorizing Provider: Romeo Orr MD Collected: 02/11/2024 12:00 AM Ordering Location: [facility] Physician [facility] - Received: 02/12/2024 01:42 PM DermPath Lab Pathologist: Parris Willis MD Specimen: Skin, left upper back 4 3:00 PM TELECOMMUNICATIONS ANALYST DERMATOPATHOLOGY LABORATORY Final Diagnosis Specimen A. 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 The specimen consists of a shave removal measuring 00c07f7 mm. Jar 0. 4 3:00 PM [facility] DERMATOPATHOLOGY LABORATORY Microscopic Description Specimen A. SKIN, left upper back: Within the dermis there are aggregates of basaloid cells with a high nuclear to cytoplasmic ratio and peripheral palisading. This lesion is present at the margin of the specimen. 4 3:00 PM [facility] DERMATOPATHOLOGY LABORATORY Disclaimer An external and internal positive and negative controls are appropriate for the histochemical, immunohistochemical and immunofluorescence stain(s) in this case (if any), except where stated explicitly. The performance characteristics of the stain(s) cited in this report were developed and its performance characteristic determined by the Dermatopathology Laboratory at [facility], directed by Dr. Jj Martinez. These tests need not be, and therefore are not, approved by the [place] Food and Drug Administration. The tests are used for clinical purposes. Billing Codes Specimen Charges Stain Charges 15003 1 4 3:00 PM [facility] DERMATOPATHOLOGY LABORATORY Embedded Images 4 3:00 PM [facility] DERMATOPATHOLOGY LABORATORY Pathology/Cytolog y TISSUE SPECIMEN FROM SKIN / Unknown 02/11/2024 02/12/2024 1:42 PM TELECOMMUNICATIONS ANALYST Romeo Orr MD LAB - PATHOLOGY/CYTOLOGY ORD ERABLES Final Result DERMATOPATHOLOGY LABORATORY [facility] - Department of Dermatology [address], [address] [phone] documented in this encounter Visit Diagnoses Not on filedocumented in this encounter
--- OUTSIDE RECORDS SUMMARY | 2024-12-11 00:58 | XMS_ITS | Encounter Summary ---
Author Organization [facility] Address [address] [place] [address] Care Team Providers Care Sweeper Cleaner Industrial Name Role Phone Unavailable Primary Care Provider Unavailabl e Encounter Details Date Type Department Care Team (Late st Contact Info) Description 02/19/2023 Lab Requisition [facility] - DermPath Lab [address] [place] [phone] Romeo Orr MD [address] [place] [address] Social History Tobacco Use Types Packs/Day Years Used Date Smoking Tobacco: Never Assessed Sex and Gender Information Value Date Recorded Sex Assigned at Not on file Legal Sex Male 6:29 PM BULKER Gender Identity Not on file Sexual Orientation Not on file documented as of this encounter Plan of Treatment Not on file documented as of this encounter Procedures Procedure Name Priority Date/Time Associated Diagnosis Comments DERMATOPATHOLOGY Routine 02/18/2023 12:0 0 AM BULKER documented in this encounter Results * DERMATOPATHOLOGY (02/18/2023 12:00 AM BULKER) Case Report Dermatopathology Report Case: [id number] Authorizing Provider: Romeo Orr MD Collected: 02/18/2023 12:00 AM Ordering Location: [facility] DermPath Lab Received: 02/19/2023 02:02 PM Pathologist: Sybil Trotter MD Specimens: A) - Skin, right lateral superior lower leg B) - Skin, right lateral lower leg C) - Skin, left anterior lateral lower leg above ankle 3:59 PM BULKER DERMATOPATHOLOGY LABORATORY Final Diagnosis Specimen A. 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 SKIN, right lateral lower leg: SUPERFICIAL (FOCALLY INVASIVE) SQUAMOUS CELL CARCINOMA ARISING IN AN ACTINIC KERATOSIS (C44.722) Specimen C. SKIN, left anterior lateral lower leg above ankle: SEBORRHEIC KERATOSIS, CLONAL TYPE (L82.1) 3 3:59 PM [facility] DERMATOPATHOLOGY LABORATORY at 1559 BULKER Clinical History A-C: R/O BCC 3 3:59 PM [facility] DERMATOPATHOLOGY LABORATORY Gross Description Specimen A: [...] 10x7x2 mm. Jar 0. 3 3:59 PM [facility] DERMATOPATHOLOGY LABORATORY Microscopic Description Specimen A. [...] from surrounding basaloid keratinocytes. 3 3:59 PM [facility] DERMATOPATHOLOGY LABORATORY Disclaimer An external and internal positive and negative controls are appropriate for the histochemical, immunohistochemical and immunofluorescence stain(s) in this case (if any), except where stated explicitly. The performance characteristics of the stain(s) cited in this report were developed and its performance characteristic determined by the Dermatopathology Laboratory at [facility], directed by Dr. Jj Martinez. These tests need not be, and therefore are not, approved by the [place] Food and Drug Administration. The tests are used for clinical purposes. Billing Codes Specimen Charges Stain Charges 34334 97980 17292 1 1 1 3 3:59 PM BULKER DERMATOPATHOLOGY LABORATORY Embedded Images 3 3:59 PM [facility] DERMATOPATHOLOGY LABORATORY Pathology/Cytology TISSUE SPECIMEN FROM SKIN / Unknown 02/18/2023 02/19/2023 2:02 PM BULKER Miscellaneous samples (specimen) TISSUE SPECIMEN FROM SKIN / Unknown 02/18/2023 02/19/2023 2:02 PM BULKER Miscellaneous samples (specimen) TISSUE SPECIMEN FROM SKIN / Unknown 02/18/2023 02/19/2023 2:02 PM BULKER Romeo Orr MD LAB - PATHOLOGY/CYTOLOGY ORD ERABLES Final Result DERMATOPATHOLOGY LABORATORY [facility] - Department of Dermatology [facility] Medicine [address] [place] [address], [address] [phone] documented in this encounter Visit Diagnoses Not on filedocumented in this encounter
[2024-12-11 08:44] VITALS: BP 135/78; PULSE 73; RESP 18; TEMP 36.3; O2SAT 98
[2024-12-11] MEDS: LACTATED RINGERS 1,000 ML 150 ML IV CONT (08:55)
--- NOTE | 2024-12-11 09:03 | WPDANESEPPF ---
Anes - Initial Pre Proc Eval Procedure: Operation Date: 12/11/24 10:00 Proposed Procedures p Screening Colonoscopy - Cam Salas MD Date/Time: 12/11/24 09:03 Surgeon: Cam Salas MD Pre Op Diagnosis: Screening Patient Data Age: 79 Gender: M Height: 1.83 m Weight: 88.8 kg Last Vital Signs Temp 36.3 C L 12/11/24 08:44 Pulse 73 12/11/24 08:44 Resp 18 12/11/24 08:44 BP 135/78 12/11/24 08:44 Pulse Ox 98 12/11/24 08:44 O2 Del Method Room Air 12/11/24 08:44 Allergies Allergy/AdvReac Type Severity Reaction Status Date / Time morphine Allergy Severe STOPS MY Verified 12/11/24 08:41 BREATHING shellfish derived Allergy Severe Swelling Verified 12/11/24 08:41 of Lip/Tongue/Throat iodine Allergy Mild HIVES Verified 12/11/24 08:41 adhesive Allergy Unknown ADHESIVE Verified 12/11/24 08:41 TAPE CAUSES BLISTERS ON SKIN codeine AdvReac Mild Headache Verified 12/11/24 08:41 Home Medications ?Medication ?Instructions ?Recorded ?Confirmed ?Type acyclovir 400 mg tablet 400 mg PO DAILY 11/07/24 12/11/24 History fluticasone propionate 50 1 spray intranasal Q12H 11/07/24 12/11/24 History mcg/actuation nasal spray,suspension ipratropium bromide 17 2 puff inhalation Q6H 11/07/24 12/11/24 History mcg/actuation HFA aerosol inhaler (Atrovent HFA) ketorolac 0.5 % eye drops 1 drp RIGHT EYE BID 11/07/24 12/11/24 History loteprednol etabonate 0.5 % eye 1 drp ophthalmic (eye) QID 11/07/24 12/11/24 History drops,suspension rivaroxaban 20 mg tablet (Xarelto) 20 mg PO Q24H 11/07/24 12/11/24 History rosuvastatin 20 mg tablet 20 mg PO DAILY 11/07/24 12/11/24 History tavaborole 5 % topical solution 1 applic topical .COMPLEX 11/07/24 12/11/24 History with applicator Patient hx anesthesia problems: none Family hx anesthesia problems: none Results Review: All pre-operative results and documents have been reviewed as part of the pre-operative evaluation. [facility] Past Medical History Medical History Arthritis rt shoulder Right shoulder injury Umbilical hernia Pacemaker Afib Chronically occurring for the past 10-12 years Surgical History Surgical History Status post left rotator cuff repair History of left knee surgery S/P right rotator cuff repair History of umbilical hernia repair Social History Social History Alcohol intake: never Substance use: never Substance use type: does not use Gender identity (if verbalized by the patient): Male Anes - Eval Final PreProcedure Day of Procedure 12/11/24 09:03 Patient weight: overweight Heart: irregular rhythm Lungs: clear to auscultation Airway: Mallampati scale class II Neurological: alert and oriented Last oral intake: >/= 8 hours ASA classification: III Emergent: no Anesthetic plan: proceed Anesthesia type and monitoring: general GIVS and standard monitoring Results Review: All pre-operative results and documents have been reviewed as part of the pre-operative evaluation. Informed Consent: The patient's anesthetic plan and its attendant risks and benefits were discussed with the patient/family/POA. Questions were solicited and answers provided to the satisfaction of the patient/family/POA.
--- NOTE | 2024-12-11 09:52 | PM.HPGS ---
History of Present Illness History of Present Illness Consent: Risks, benefits, and alternatives have been discussed and questions answered. Patient agrees to proceed with procedure. Chief complaint: Screening Narrative: Marvin Maldonado is a 79 year old male with colon polyp 5 years ago Review of Systems Review of Systems: All systems reviewed & are unremarkable except as noted in HPI and below PMFSH Past Medical History Medical History (Updated 12/11/24 @ 09:53 by Cam Salas MD) Colon polyp Arthritis rt shoulder Right shoulder injury Umbilical hernia Pacemaker Afib Chronically occurring for the past 10-12 years Surgical History Surgical History Status post left rotator cuff repair History of left knee surgery S/P right rotator cuff repair History of umbilical hernia repair Social History Social History Alcohol intake: never Substance use: never Substance use type: does not use Gender identity (if verbalized by the patient): Male Meds Home Medications and Allergies Home Medications ?Medication ?Instructions ?Recorded ?Confirmed ?Type acyclovir 400 mg tablet 400 mg PO DAILY 11/07/24 12/11/24 History fluticasone propionate 50 1 spray intranasal Q12H 11/07/24 12/11/24 History mcg/actuation nasal spray,suspension ipratropium bromide 17 2 puff inhalation Q6H 11/07/24 12/11/24 History mcg/actuation HFA aerosol inhaler (Atrovent HFA) ketorolac 0.5 % eye drops 1 drp RIGHT EYE BID 11/07/24 12/11/24 History loteprednol etabonate 0.5 % eye 1 drp ophthalmic (eye) QID 11/07/24 12/11/24 History drops,suspension rivaroxaban 20 mg tablet (Xarelto) 20 mg PO Q24H 11/07/24 12/11/24 History rosuvastatin 20 mg tablet 20 mg PO DAILY 11/07/24 12/11/24 History tavaborole 5 % topical solution 1 applic topical .COMPLEX 11/07/24 12/11/24 History with applicator Allergies Allergy/AdvReac Type Severity Reaction Status Date / Time morphine Allergy Severe STOPS MY Verified 12/11/24 08:41 BREATHING shellfish derived Allergy Severe Swelling Verified 12/11/24 08:41 of Lip/Tongue/Throat iodine Allergy Mild HIVES Verified 12/11/24 08:41 adhesive Allergy Unknown ADHESIVE Verified 12/11/24 08:41 TAPE CAUSES BLISTERS ON SKIN codeine AdvReac Mild Headache Verified 12/11/24 08:41 Vital Signs Vital Signs - 24 hr 12/11/24 08:44 Temperature 97.4 F L Pulse Rate 73 Respiratory Rate 18 Blood Pressure 135/78 Pulse Oximetry 98 Oxygen Delivery Room Air Exam Const: General: comfortable and no acute distress HENMT: Face/Nose/Sinus: Normal nares present Eyes: General: appearance normal, both eyes and all related structures Neck: Neck: no JVD Resp: Auscultation: clear to auscultation bilaterally Cardio: Rate: regular rate Rhythm: regular rhythm GI: Inspection: non-distended GI Palp: Yes Soft to palpation Skin: General skin exam: normal color Neuro: Speech: normal speech Extrem: General: normal to inspection Psych: Mental Status: mental status grossly normal Assessment and Plan Assessment and plan (1) Colon polyp: Code(s): K63.5 - Polyp of colon Status: Acute Assessment and Plan: colonoscopy
--- NOTE | 2024-12-11 10:05 | S_PTH ---
PATIENT: Marvin Maldonado LOC: [facility] Smart#:[id number] AGE/SX: 79/M ROOM: RE12/11/[address]: Cam Salas MD : 1945 BED: DIS: 12/11/2024 SPEC #: [id number] RECD: 12/11/24 11:24 STATUS: ANITA RE #: [id number] HERLINDA: 12/11/24 10:[address]: Cam Salas DEPT: [facility] Surgical RECD BY: Jessy Franks ENTERED: 12/11/24 11:24 SP TYPE: Surgical OTHR DR: Pelon MontanaMD Tissues: A - Colon Polypectomy Procedures: Hematoxylin and Eosin Stain Gross and Microscopic Level 4
[2024-12-11 10:11] VITALS: BP 113/71; PULSE 64; RESP 29; O2SAT 96
--- NOTE | 2024-12-11 10:12 | SUR.OPER ---
Cecal Polyp not retrieved. Dr. Santillan aware.
[2024-12-11 10:21] VITALS: BP 115/70; PULSE 60; RESP 14; O2SAT 97
[2024-12-11 10:31] VITALS: BP 120/73; PULSE 60; RESP 16; O2SAT 100
[2024-12-11 10:41] VITALS: BP 124/76; PULSE 60; RESP 20; O2SAT 100
== END 2024-12-11 10:46 | disposition home or self-care (01) ==
PROVIDERS: PCP Internal Medicine; Referring Provider Internal Medicine; Visit Provider Internal Medicine Gastroenterology
PROC: 0DJD8ZZ Inspection of Lower Intestinal Tract, Via Natural or Artificial Opening Endoscopic (ICD-10-PCS; CPT 45378; principal; 2024-12-11 10:00)
DX: Z12.11 Encounter for screening for malignant neoplasm of colon (principal); D12.3 Benign neoplasm of transverse colon; K57.30 Diverticulosis of large intestine without perforation or abscess without bleeding; K64.8 Other hemorrhoids
CPT/HCPCS: 45385; 88305; J2704; J7120

== ENCOUNTER 2025-02-04 08:54 | Outpatient (CLI) | payer MEDICARE, SELFPAY ==
--- NOTE | ~2025-02-04 | XR_ITS ---
EXAM/PROCEDURE: XR lg joint inject/asp w image HISTORY: right hip arthritis COMPARISON: None available. TECHNIQUE: Fluoroscopic guided right hip steroid injection Fluoroscopy time: 0.2 minutes DAP: 2.204 great per square centimeter Contrast: Annotations states 1.5 cc, however only approximately 0.5 cc administered. 80 mg Depo-Medrol combined with 2 cc of bipuvicaine injected. ROCEDURE: After informed consent and timeout performed in the usual fashion the right hip was prepped and draped in sterile fashion. Approximately 3 mL of 1% lidocaine without epinephrine administered for local anesthesia and a 3.5 22-gauge needle was advanced to the lateral femoral neck cortex. Location confirmed with contrast. Steroid injection was then administered. No immediate complication. IMPRESSION: Patient status post right hip steroid injection. Reviewed, dictated and finalized at location A. [employer]
--- OUTSIDE RECORDS SUMMARY | 2025-02-04 09:16 | XMS_ITS | Encounter Summary ---
Author Organization [facility] Address [address] [facility] [address] Care Team Providers Care Shell Sieve Operator Name Role Phone Unavailable Primary Care Provider Unavailabl e Encounter Details Date Type Department Care Team (Late st Contact Info) Description 05/30/2023 Lab Requisition [facility] - DermPath Lab [address] [facility] [place] [phone] Jalen Moreno MD [facility] DERMATOLOGY [address] [place] [phone] 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, including hip Social History Tobacco Use Types Packs/Day Years Used Date Smoking Tobacco: Never Assessed Sex and Gender Information Value Date Recorded Sex Assigned at Not on file Legal Sex Male 6:29 PM GAS COLLECTION SYSTEM OPERATOR Gender Identity Not on file Sexual Orientation Not on file documented as of this encounter Plan of Treatment Not on file documented as of this encounter Procedures Procedure Name Priority Date/Time Associated Diagnosis Comments DERMATOPATHOLOGY Routine 05/30/2023 12:0 0 AM GAS COLLECTION SYSTEM OPERATOR 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 - Received: 05/31/2023 12:20 PM [...] CELL CARCINOMA NOT IDENTIFIED (L90.5) 1:26 PM [facility]AT[facility] at 1326 CDT Clinical History A-B: Squamous Cell Carcinoma. Check margins. 1:26 PM [facility] Gross Description Specimen A: Received is one formalin filled container labeled with the patient's name and designated right lateral superior lower leg. The specimen consists of a non-oriented ellipse of skin measuring 58s62g0 mm. The epidermal surface is unremarkable. The [...] of a non-oriented ellipse of skin measuring 09d31g5 mm. The epidermal surface is unremarkable. The margin is inked green. The 12 o'clock and 6 o'clock tips are submitted in cassette 1. The remainder of the ellipse is serially sectioned and submitted in cassette 2-3. Jar 0. 1:26 PM [facility] Microscopic Description Specimen A. [...] squamous cell carcinoma is identified. 1:26 PM [facility] Disclaimer An external and internal positive and negative controls are appropriate for the histochemical, immunohistochemical and immunofluorescence stain(s) in this case (if any), except where stated explicitly. The performance characteristics of the stain(s) cited in this report were developed and its performance characteristic determined by the Dermatopathology Laboratory at [facility], directed by Dr. Jj Martinez. These tests need not be, and therefore are not, approved by the [place] Food and Drug Administration. The tests are used for clinical purposes. Billing Codes Specimen Charges Stain Charges 33107 43101 1 1 4 1:26 PM CDT DERMATOPATHOLOGY LABORATORY Embedded Images 1:26 PM CDT DERMATOPATHOLOGY LABORATORY Pathology/Cytology TISSUE SPECIMEN FROM SKIN / Unknown 05/30/2023 05/31/2023 12:20 PM GAS COLLECTION SYSTEM OPERATOR Miscellaneous samples (specimen) TISSUE SPECIMEN FROM SKIN / Unknown 05/30/2023 05/31/2023 12:20 PM GAS COLLECTION SYSTEM OPERATOR Jalen Moreno MD LAB - PATHOLOGY/CYTOLOGY ORDE SULLY Final Result DERMATOPATHOLOGY LABORATORY 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
--- OUTSIDE RECORDS SUMMARY | 2025-02-04 09:16 | XMS_ITS | Encounter Summary ---
Author Organization [facility] Address [address] [facility] [place] [address] Care Team Providers Care Risk Officer Name Role Phone Unavailable Primary Care Provider Unavailabl e Encounter Details Date Type Department Care Team (Late st Contact Info) Description 02/12/2024 Lab Requisition [facility] - DermPath Lab [address] [place] [phone] Romeo Orr MD [address] [place] [address] Social History Tobacco Use Types Packs/Day Years Used Date Smoking Tobacco: Never Assessed Sex and Gender Information Value Date Recorded Sex Assigned at Not on file Legal Sex Male 6:29 PM CHEMICAL DEPENDENCY ATTENDANT Gender Identity Not on file Sexual Orientation Not on file documented as of this encounter Plan of Treatment Not on file documented as of this encounter Procedures Procedure Name Priority Date/Time Associated Diagnosis Comments DERMATOPATHOLOGY Routine 02/11/2024 12:0 0 AM CHEMICAL DEPENDENCY ATTENDANT documented in this encounter Results * DERMATOPATHOLOGY (02/11/2024 12:00 AM CHEMICAL DEPENDENCY ATTENDANT) Case Report Dermatopathology Report Case: [id number] Authorizing Provider: Romeo Orr MD Collected: 02/11/2024 12:00 AM Ordering Location: [facility] - Received: 02/12/2024 01:42 PM DermPath Lab Pathologist: Parris Willis MD Specimen: Skin, left upper back 4 3:00 PM CHEMICAL DEPENDENCY ATTENDANT DERMATOPATHOLOGY LABORATORY Final Diagnosis Specimen A. 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 The specimen consists of a shave removal measuring 23j79b7 mm. Jar 0. 4 3:00 PM [facility] DERMATOPATHOLOGY LABORATORY Microscopic Description Specimen A. SKIN, left upper back: Within the dermis there are aggregates of basaloid cells with a high nuclear to cytoplasmic ratio and peripheral palisading. This lesion is present at the margin of the specimen. 4 3:00 PM [facility] DERMATOPATHOLOGY LABORATORY Disclaimer An external and internal positive and negative controls are appropriate for the histochemical, immunohistochemical and immunofluorescence stain(s) in this case (if any), except where stated explicitly. The performance characteristics of the stain(s) cited in this report were developed and its performance characteristic determined by the Dermatopathology Laboratory at [facility], directed by Dr. Jj Martinez. These tests need not be, and therefore are not, approved by the [place] Food and Drug Administration. The tests are used for clinical purposes. Billing Codes Specimen Charges Stain Charges 22038 1 4 3:00 PM [facility] DERMATOPATHOLOGY LABORATORY Embedded Images 4 3:00 PM [facility] DERMATOPATHOLOGY LABORATORY Pathology/Cytolog y TISSUE SPECIMEN FROM SKIN / Unknown 02/11/2024 02/12/2024 1:42 PM CHEMICAL DEPENDENCY ATTENDANT Romeo Orr MD LAB - PATHOLOGY/CYTOLOGY ORD ERABLES Final Result DERMATOPATHOLOGY LABORATORY [facility] - Department of Dermatology [address], [address] [phone] documented in this encounter Visit Diagnoses Not on filedocumented in this encounter
--- OUTSIDE RECORDS SUMMARY | 2025-02-04 09:16 | XMS_ITS | Encounter Summary ---
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
--- OUTSIDE RECORDS SUMMARY | 2025-02-04 09:16 | XMS_ITS | Encounter Summary ---
Author Organization [facility] Address [address] [facility] [place] [address] Care Team Providers Care Ice Cream Vendor Name Role Phone Unavailable Primary Care Provider Unavailabl e Encounter Details Date Type Department Care Team (Late st Contact Info) Description 10/29/2019 Lab Requisition [facility] DermPath Lab [address] [place] [address] Romeo Orr MD [address] [place] [address] Social History Tobacco Use Types Packs/Day Years Used Date Smoking Tobacco: Never Assessed Sex and Gender Information Value Date Recorded Sex Assigned at Not on file Legal Sex Male 6:29 PM KILN HAND Gender Identity Not on file Sexual Orientation Not on file documented as of this encounter Plan of Treatment Not on file documented as of this encounter Procedures Procedure Name Priority Date/Time Associated Diagnosis Comments DERMATOPATHOLOGY Routine 10/28/2019 12:0 0 AM CDT documented in this encounter Results * DERMATOPATHOLOGY (10/28/2019 12:00 AM CDT) Case Report Dermatopathology Report Case: [id number] Authorizing Provider: Romeo Orr MD Collected: 10/28/2019 12:00 AM Ordering Location: [facility] DermPath Lab Received: 10/29/2019 12:23 PM Pathologist: [...] specimen consists of a shave biopsy measuring 63n41n1mn. Jar 0. Specimen B: Received is one formalin filled container labeled with the patient's name and designated left ext FA. The specimen consists of a shave biopsy measuring 08k38z5yl. Jar 0. Specimen C: Received is one formalin filled container labeled with the patient's name and designated left distal ulnar FA. The specimen consists of a shave biopsy measuring 67r56f3my. Jar 0. 0 2:41 PM CDT DERMATOPATHOLOGY [...] characteristic determined by the Dermatopathology Laboratory at [facility], directed by Dr. Jj Martinez. These tests need not be, and therefore are not, approved by the [place] Food and Drug Administration. The tests are used for clinical purposes. Billing Codes Specimen Charges Stain Charges 70067 32939 78693 1 1 1 39214 1 0 2:41 PM CDT DERMATOPATHOLOGY LABORATORY [...] ERABLES Edited Result - Final DERMATOPATHOLOGY LABORATORY [facility] - Department of Dermatology [facility]/[address] [address], [facility] [phone] documented in this encounter Visit Diagnoses Not on filedocumented in this encounter
--- OUTSIDE RECORDS SUMMARY | 2025-02-04 09:16 | XMS_ITS | Clinical Summary ---
Author Organization [facility] Address [address] [place] [address] Care Team Providers Care Elevator Runner Name Role Phone Unavailable Primary Care Provider Unavailabl e Source Comments [facility],non-owned Affiliates and Associated Physician Practices is amultiple site organization consisting of ambulatory clinics and hospital sitesin [place], [place], [place] and [place]. This disclosure is being madepursuant to the Care Everywhere program and may not contain all information available regarding this patient. Last updated 17.[facility] [employer] Social History Tobacco Use Types Packs/Day Years Used Date Smoking Tobacco: Never Assessed Sex and Gender Information Value Date Recorded Sex Assigned at Not on file Legal Sex Male 6:29 PM ADMISSIONS NURSE Gender Identity Not on file Sexual Orientation [...] age to complete this topic Insurance MEDICARE [facility] MANAGED MEDICARE ADV [facility] MANAGED MEDICARE ADV SELF PAY NO INSURANCE Member Subscriber Plan / Payer (Ef fective for All Dates) Name:Arie Maldonado Member ID:Not on file Relation to Subscriber:Not on file Name:ARIE MALDONADO Subscriber ID:Not on file (Home) Address: [address] [place] [address] Payer ID:Not on file Group ID:Not on file Type:Self Pay Address: [place], [place]
--- OUTSIDE RECORDS SUMMARY | 2025-02-04 09:16 | XMS_ITS | Encounter Summary ---
Author Organization [facility] Address [address] [place] [address] Care Team Providers Care Cement [employer] [address] [address] Name Role Phone Unavailable Primary Care Provider Unavailabl e Encounter Details Date Type Department Care Team (Late st Contact Info) Description 02/19/2023 Lab Requisition [facility] - DermPath Lab [address] [facility] [place] [phone] Romeo Orr MD [address] [place] [address] Social History Tobacco Use Types Packs/Day Years Used Date Smoking Tobacco: Never Assessed Sex and Gender Information Value Date Recorded Sex Assigned at Not on file 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 Gender Identity Not on file Sexual Orientation Not on file documented as of this encounter Plan of Treatment Not on file documented as of this encounter Procedures Procedure Name Priority Date/Time Associated Diagnosis Comments DERMATOPATHOLOGY Routine 02/18/2023 12:0 0 AM LOCAL COMPANY TRUCK DRIVER documented in this encounter Results * DERMATOPATHOLOGY (02/18/2023 12:00 AM LOCAL COMPANY TRUCK DRIVER) Case Report Dermatopathology Report Case: [id number] Authorizing Provider: Romeo Orr MD Collected: 02/18/2023 12:00 AM Ordering Location: [facility] DermPath Lab Received: 02/19/2023 02:02 PM Pathologist: Sybil Trotter MD Specimens: A) - Skin, right lateral superior lower leg B) - Skin, right lateral lower leg C) - Skin, left anterior lateral lower leg above ankle 3:59 PM LOCAL COMPANY TRUCK DRIVER DERMATOPATHOLOGY LABORATORY Final Diagnosis Specimen A. 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 SKIN, right lateral lower leg: SUPERFICIAL (FOCALLY INVASIVE) SQUAMOUS CELL CARCINOMA ARISING IN AN ACTINIC KERATOSIS (C44.722) Specimen C. SKIN, left anterior lateral lower leg above ankle: SEBORRHEIC KERATOSIS, CLONAL TYPE (L82.1) 3 3:59 PM [facility] DERMATOPATHOLOGY LABORATORY at 1559 LOCAL COMPANY TRUCK DRIVER Clinical History A-C: R/O BCC 3 3:59 PM [facility] DERMATOPATHOLOGY LABORATORY Gross Description Specimen A: [...] 10x7x2 mm. Jar 0. 3 3:59 PM [facility] DERMATOPATHOLOGY LABORATORY Microscopic Description Specimen A. [...] from surrounding basaloid keratinocytes. 3 3:59 PM [facility] DERMATOPATHOLOGY LABORATORY Disclaimer An external and internal positive and negative controls are appropriate for the histochemical, immunohistochemical and immunofluorescence stain(s) in this case (if any), except where stated explicitly. The performance characteristics of the stain(s) cited in this report were developed and its performance characteristic determined by the Dermatopathology Laboratory at [facility], directed by Dr. Jj Martinez. These tests need not be, and therefore are not, approved by the [place] Food and Drug Administration. The tests are used for clinical purposes. Billing Codes Specimen Charges Stain Charges 11191 42781 07659 1 1 1 3 3:59 PM LOCAL COMPANY TRUCK DRIVER DERMATOPATHOLOGY LABORATORY Embedded Images 3 3:59 PM LOCAL COMPANY TRUCK DRIVER DERMATOPATHOLOGY LABORATORY Pathology/Cytology TISSUE SPECIMEN FROM SKIN / Unknown 02/18/2023 02/19/2023 2:02 PM LOCAL COMPANY TRUCK DRIVER Miscellaneous samples (specimen) TISSUE SPECIMEN FROM SKIN / Unknown 02/18/2023 02/19/2023 2:02 PM LOCAL COMPANY TRUCK DRIVER Miscellaneous samples (specimen) TISSUE SPECIMEN FROM SKIN / Unknown 02/18/2023 02/19/2023 2:02 PM LOCAL COMPANY TRUCK DRIVER Romeo Orr MD LAB - PATHOLOGY/CYTOLOGY ORD ERABLES Final Result DERMATOPATHOLOGY LABORATORY [facility] - Department of Dermatology [facility] Medicine [address] [place] [address], [address] [phone] documented in this encounter Visit Diagnoses Not on filedocumented in this encounter
--- OUTSIDE RECORDS SUMMARY | 2025-02-04 09:16 | XMS_ITS | Clinical Summary ---
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 Gender Identity Not on file Sexual Orientation Not on file Occupation Industry Job Start Date Job End Date [employer] Not on file Not on file Not on filippo e Last Filed Vital Signs Vital Sign Reading Time Taken Comments Blood Pressure 137/72 09/02/2024 10:02 AM CDT Pulse 60 09/02/2024 10:02 AM CDT Temperature 35.9 C (96.7 F) 04/16/2023 9:05 AM ACID ADJUSTER Respiratory Rate 18 04/16/2023 9:35 AM ACID ADJUSTER Oxygen Saturation 99% 09/02/2024 10: 02 AM [...] 04/06/2013, 03/27/2013 Medical Devices Implanted Type Area Director Outcomes Device Identifier Shelf Expiration Date Model / Serial / Lot Ji Ra Lead [id number]/ 31/2008 Implanted: (Quantity not on file) Lead [employer] [id number] / / Ji Rv Lead [id number]/ 31/2008 Implanted: (Quantity not on file) Lead [employer] [id number] / / Medtronic Pm [id number]/[id number] 16 Implanted:Qty : 1 on 07/25/2015 Pacemaker Chest Wall Medtronic Cardiac Rhythm Mgmt [id number] / / Insurance [facility] MEDICARE ADVANTAGE [facility] MEDICARE ADVANTAGE [facility] [address] Advance Directives For more information, please contact: [phone] Documents on File Type Date Recorded Patient [employer] anation Power of Outpatient Admitting Clerk 04/16/2023 5:38 AM Care Teams Sales Agent Marine Insurance Relationship Specialty Start Date End Date Pelon Montana MD [address] [place] [id number] PCP - General Internal Medicine 04/01/23
--- OUTSIDE RECORDS SUMMARY | 2025-02-04 09:16 | XMS_ITS | Encounter Summary ---
Author Organization [facility] Address [address] [place] [place] [address] Care Team Providers Care Fuse Spooler Name Role Phone Unavailable Primary Care Provider Unavailabl e Encounter Details Date Type Department Care Team (Late st Contact Info) Description 11/22/[address] 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 The margin is inked green. Jar 0. [facility] Dermatopathology Laboratory performed the technical component only. [...] characteristic determined by the Dermatopathology Laboratory at [facility]. These tests need not be, and therefore are not, approved by the [place] Food and Drug Administration. The tests are used for clinical purposes. 8 12:18 PM T DERMATOPATHOLOGY LABORATORY at 1218 CDT Pathology/Cytolog y TISSUE SPECIMEN FROM SKIN / Unknown 11/21/2017 11/22/2017 6:29 AM CDT Erica Gordon MD LAB - PATHOLOGY/CYTOLOGY OR DERABLES Final Result DERMATOPATHOLOGY LABORATORY [facility] - Department of Dermatology [address] [place] [address], [address] [place] [address], [facility] [phone] documented in this encounter Visit Diagnoses Not on filedocumented in this encounter
--- OUTSIDE RECORDS SUMMARY | 2025-02-04 09:16 | XMS_ITS | Data Portability ---
Author Organization [place] [facility] [employer], Main Office Address [address] [place] [address] Assessment Encounter Date Assessment Date Assessment LastModified by Organization Details LastModified Time 07/05/2022 07/05/2022 CT scan lumbar spine Blood Work ordered Continue current therapy 4 month follow-up [email or web address] Not available 07/14/2022 22:06:45 11/01/2022 11/01/2022 Continue current therapy blood work reviewed consultation notes reviewed discussed with patient follow-up with me in 4 months [email or web address] Not available 11/01/2022 14:41:09 11/08/2022 11/08/2022 Probably just musculoskeletal contusion of chest wall will x-ray the chest and some rib details and I expect that he will probably bruise up a little bit tomorrow if he has any further problems he will let me know [email or web address] Not available 11/08/2022 22:51:02 Plan of Treatment Reminders Order Date Submit Date Provider Last Modified By Organization Details Last Modified Time Details Appointments None recorded. Lab PSA, serum or plasma 2022 023 [email or web address] Not available 09:53:56 lipid panel, serum 2022 023 WILLY Not available 19:41:33 CMP, serum or plasma 2022 023 WILLY Not available 19:41:39 CBC w/ auto diff 2022 023 WILLY Not available 18:03:37 Referral None recorded. Procedures None recorded. Surgeries None recorded. Imaging XR, ribs, unilateral , 3 or more view 2022 023 [facility] ([facility]), [address] [place], [address], 3 12:23:19 XR, chest 2022 023 [facility] ([facility]), [address] [place], [address], 3 12:23:25 CT, lumbar spine, w/o contrast 2022 023 [facility] Not available 3 09:02:50 Medication Orders None recorded. Patient TargetsNo targets recorded. Patient Instructions Encounter Date Encounter Id Patient Instructions Last Modified By Organization Details Last Modified Time 07/05/2022 [id number] dementia rating scale-2* [email or web address] Not available 07/05/2022 14:45:48 alcohol misuse* [email or web address] Not available 07/05/2022 14:45:48 depression screening* Not available 07/05/2022 14:45:48 Timed Up and Go test (TUG)* [email or web address] Not available 07/05/2022 14:45:48 multi-dimensiona l health assessment questionnaire* [email or web address] Not available 07/05/2022 14:45:48 Personalized a lt Plan and Screening Recommendations Advance Directives - Do you have one? Yes Advance Directives - Do we have your advance directive on file in your health record? No, please bring in a copy at your earliest convenience Primary Prevention/Interven tion (prevents or decreases the chance of common diseases from occurring) Smoking Risk: Non Smoker I have no recommendations Alcohol Misuse Screening: Negative I have no recommendations Weight: Overweight try to lose 10% of your body weight Physical activity: Need more exercise/physical activity Nutrition: Average Eat heart healthy diet Fall Risk (screened today): Low I have no recommendations Vaccines Pneumococcal: No further needed Influenza: Your next one in the fall of this year Chronic Disease Risks Stroke: Intermediate Risk Active diagnosis, Continue current treatment plan Heart Attack: Intermediate Risk Active diagnosis, Continue current treatment plan Clogging of the Arteries: Intermediate Risk Active diagnosis, Continue current treatment plan Diabetes: Low Risk I have no recommendations Secondary Prevention/Interven tion (detects treatable diseases before they may cause symptoms, disability, or ) Prostate Cancer Screening: recommended Colon Cancer Screening: Colonoscopy due 2025 Date Screening Last Performed: __2020 Eye Disease Screening: Your next exam in: goes yearly Dementia Risk: Low I have no recommendations Depression Screening: Negative I have no recommendations [email or web address] Not available 07/05/2022 14:32:49 Reason for Referral None Reported. Results Created Date Observation Date Name Description Value Unit Range Abnormal Flag Note LastModifiedBy Organization Detail LastModifiedTime 07/06/1907/05/2022 CBC/C OMPLE TE BLD COUNT W/DIF F white blood cells 4.9 x10'3 /uL 4.2-10 .8 Not Available [facility] (Lab) [address] [place], [address], 07/05/2022 18:03:37 07/06/19 23 07/05/2022 CBC/C OMPLE TE BLD COUNT W/DIF F red blood cells 4.67 x10'6 /uL 4.10-5 .80 Not Available [facility] (Lab) [address] [place], [address], 07/05/2022 18:03:37 07/06/19 23 07/05/2022 CBC/C OMPLE TE BLD COUNT W/DIF F hemoglobin 14.0 g/dL 13.2-1 7.0 Not Available [facility] (Lab) [address] [place], [address], 07/05/2022 18:03:37 07/06/19 23 07/05/2022 CBC/C OMPLE TE BLD COUNT W/DIF F hematocrit 43.8 % 39.3-5 0.0 Not Available [facility] (Lab) [address] [place], [address], 07/05/2022 18:03:37 07/06/19 23 07/05/2022 CBC/C OMPLE TE BLD COUNT W/DIF F mean red cell volume 93.8 fL 80.0-9 7.0 Not Available [facility] (Lab) [address] [facility] [place], [address], 07/05/2022 18:03:37 07/06/19 23 07/05/2022 CBC/C OMPLE TE BLD COUNT W/DIF F mean red cell hemoglobin 30.0 pg 27.0-3 3.0 Not Available [facility] (Lab) [address] [facility] [place], [address], 07/05/2022 18:03:37 07/06/19 23 07/05/2022 CBC/C OMPLE TE BLD COUNT W/DIF F mean RBC HGB concentratio n 32.0 g/dL 31.0-3 6.0 Not Available [facility] (Lab) [address] [place], [address], 07/05/2022 18:03:37 07/06/19 23 07/05/2022 CBC/C OMPLE TE BLD COUNT W/DIF F red cell distribution width 15.2 % 11.8-1 5.5 Not Available [facility] (Lab) [address] [place], [address], 07/05/2022 18:03:37 07/06/19 23 07/05/2022 CBC/C OMPLE TE BLD COUNT W/DIF F platelets 186 x10'3 /uL 150-40 0 Not Available [facility] (Lab) [address] [place], [address], 07/05/2022 18:03:37 07/06/19 23 07/05/2022 CBC/C OMPLE TE BLD COUNT W/DIF F mean platelet volume 10.4 fL 9.0-12 .4 Not Available [facility] (Lab) [address] [place], [address], 07/05/2022 18:03:37 07/06/19 23 07/05/2022 CBC/C OMPLE TE BLD COUNT W/DIF F neutrophils 50.3 % 39.0-7 2.0 Not Available [facility] (Lab) [address] [place], [address], 07/05/2022 18:03:37 07/06/19 23 07/05/2022 CBC/C OMPLE TE BLD COUNT W/DIF F lymphocytes 36.2 % 16.0-4 7.0 Not Available [facility] (Lab) [address] [place], [address], 07/05/2022 18:03:37 07/06/19 23 07/05/2022 CBC/C OMPLE TE BLD COUNT W/DIF F monocytes 11.7 % 5.0-12 .0 Not Available [facility] (Lab) [address] [place], [address], 07/05/2022 18:03:37 07/06/19 23 07/05/2022 CBC/C OMPLE TE BLD COUNT W/DIF F eosinophils 0.8 % 1.0-7. 0 low Not Available [facility] (Lab) [address] [place], [address], 07/05/2022 18:03:37 07/06/19 23 07/05/2022 CBC/C OMPLE TE BLD COUNT W/DIF F basophils 0.8 % 0.0-2. 0 Not Available [facility] (Lab) [address] [place], [address], 07/05/2022 18:03:37 07/06/19 23 07/05/2022 CBC/C OMPLE TE BLD COUNT W/DIF F immature granulocytes 0.2 % 0.00-0 .50 Not Available [facility] (Lab) [address] [place], [address], 07/05/2022 18:03:37 07/06/19 23 07/05/2022 CBC/C OMPLE TE BLD COUNT W/DIF F neutrophils, absolute count 2.46 x10'3 /uL 1.5-8. 0 Not Available [facility] (Lab) [address] [place], [address], 07/05/2022 18:03:37 07/06/19 23 07/05/2022 CBC/C OMPLE TE BLD COUNT W/DIF F lymphocytes, absolute count 1.77 x10'3 /uL 1.07-3 .43 Not Available [facility] (Lab) [address] [place], [address], 07/05/2022 18:03:37 07/06/19 23 07/05/2022 CBC/C OMPLE TE BLD COUNT W/DIF F monocytes, absolute count 0.57 x10'3 /uL 0.29-0 .99 Not Available [facility] (Lab) [address] [place], [address], 07/05/2022 18:03:37 07/06/19 23 07/05/2022 CBC/C OMPLE TE BLD COUNT W/DIF F eosinophils, absolute count 0.04 x10'3 /uL 0.02-0 .53 Not Available [facility] (Lab) [address] [place], [address], 07/05/2022 18:03:37 07/06/19 23 07/05/2022 CBC/C OMPLE TE BLD COUNT W/DIF F basophils, absolute count 0.04 x10'3 /uL 0.01-0 .08 Not Available [facility] (Lab) [address] [place], [address], 07/05/2022 18:03:37 07/06/19 23 07/05/2022 CBC/C OMPLE TE BLD COUNT W/DIF F immature granulocytes ,absolute 0.01 x10'3 /uL 0.00-0 .05 Not Available [facility] (Lab) [address] [place], [address], 07/05/2022 18:03:37 07/06/19 23 07/05/2022 CBC/C OMPLE TE BLD COUNT W/DIF F nucleated red blood cells 0.0 % -0 Not Available [facility] (Lab) [address] [place], [address], 07/05/2022 18:03:37 07/06/19 23 07/05/2022 CBC/C OMPLE TE BLD COUNT W/DIF F NRBC# 0.00 x10'3 /uL Not Available [facility] (Lab) [address] [place], [address], 07/05/2022 18:03:37 07/06/19 23 07/05/2022 LIPID PANEL cholesterol 124 mg/dL 140-19 9 low NIH HYACINTH NSUS RECOM MENDA TION FOR FAROOQ STERO L: ADULT CHILD LOW RISK: <200 <170 BORDE RLINE : <200- 239 ----- HIGH RISK: >240 >200 Not Available [facility] (Lab) [address] [place], [address], 07/05/2022 19:41:33 07/06/19 23 07/05/2022 LIPID PANEL triglyceride s 99 mg/dL 0-150 NIH HYACINTH NSUS REPOR T RECOM MENDA TION FOR TRIGL YCERI FAUZIA: ADULT CHILD LOW RISK: <150 ----- BODER LINE: 150-1 99 ----- HIGH RISK: >200 ----- Not Available [facility] (Lab) [address] [place], [address], 07/05/2022 19:41:33 07/06/19 23 07/05/2022 LIPID PANEL HDL cholesterol 43 mg/dL 40- Not Available [facility] (Lab) [address] [place], [address], 07/05/2022 19:41:33 04/13/07/05/2022 LIPID PANEL LDL cholesterol, calculated 61 mg/dL 0-130 NIH HYACINTH NSUS REPOR T RECOM MENDA TIONS FOR LDL: ADULT CHILD LOW RISK <130 <110 (OPTI MAL LDL) <100 ----- DEMETRIUSDE RLINE : 130-1 59 ----- HIGH RISK: >160 >130 A TRIGL YCERI DE RESUL T >400 INVAL IDATE S THE CALCU LATIO N FOR LDL FRACT IONAT ION - THE LDL RESUL T WILL NOT BE REPOR ROGER. Not Available [facility] (Lab) [address] [place], [address], 07/05/2022 19:41:33 07/06/19 23 07/05/2022 COMPR EHENS EDDIE METAB OLIC PANEL sodium 139 mmol/ L 137-14 5 Not Available [facility] (Lab) [address] [place], [address], 07/05/2022 19:41:39 07/06/19 23 07/05/2022 COMPR EHENS EDDIE METAB OLIC PANEL potassium 4.7 mmol/ L 3.5-5. 1 Not Available [facility] (Lab) [address] [place], [address], 07/05/2022 19:41:39 07/06/19 23 07/05/2022 COMPR EHENS EDDIE METAB OLIC PANEL chloride 103 mmol/ L 98-107 Not Available [facility] (Lab) [address] [place], [address], 07/05/2022 19:41:39 07/06/19 23 07/05/2022 COMPR EHENS EDDIE METAB OLIC PANEL carbon dioxide 27 mmol/ L 22-30 Not Available [facility] (Lab) [address] [place], [address], 07/05/2022 19:41:39 07/06/19 23 07/05/2022 COMPR EHENS EDDIE METAB OLIC PANEL anion gap 13.7 mmol/ L 14-22 low Not Available [facility] (Lab) [address] [place], [address], 07/05/2022 19:41:39 07/06/19 23 07/05/2022 COMPR EHENS EDDIE METAB OLIC PANEL glucose 84 mg/dL 70-99 Not Available [facility] (Lab) [address] [place], [address], 07/05/2022 19:41:39 07/06/19 23 07/05/2022 COMPR EHENS EDDIE METAB OLIC PANEL BUN 31 mg/dL 8-19 high Not Available [facility] (Lab) [address] [place], [address], 07/05/2022 19:41:39 07/06/19 23 07/05/2022 COMPR EHENS EDDIE METAB OLIC PANEL creatinine 0.88 mg/dL 0.66-1 .25 Not Available [facility] (Lab) [address] [place], [address], 07/05/2022 19:41:39 07/06/19 23 07/05/2022 COMPR EHENS EDDIE METAB OLIC PANEL GFR >60 Refer ence Range : Mchenry ge GFR Healt hy Adult : >60 [...] years of age, a pedia tric GFR patriciou lori is avail able on the [facility] websi te: [email or web address] :[email or web address] bia/pr ofess ional s/kdo qi/gf r_cal culat or Not Available [facility] (Lab) [address] [place], [address], 07/05/2022 19:41:39 07/06/19 23 07/05/2022 COMPR EHENS EDDIE METAB OLIC PANEL alkaline phosphatase 70 U/L 38-[address] [facility] (Lab) [address] [place], [address], 07/05/2022 19:41:39 07/06/19 23 07/05/2022 COMPR EHENS EDDIE METAB OLIC PANEL alanine aminotransfe rase 22 U/L 0-50 Not Available [facility] (Lab) [address] [place], [address], 07/05/2022 19:41:39 07/06/19 23 07/05/2022 COMPR EHENS EDDIE METAB OLIC PANEL aspartate aminotransfe rase 30 U/L 15-46 Not Available [facility] (Lab) [address] [place], [address], 07/05/2022 19:41:39 07/06/19 23 07/05/2022 COMPR EHENS EDDIE METAB OLIC PANEL bilirubin, total 1.80 mg/dL 0.20-1 .30 high Not Available [facility] (Lab) [address] [place], [address], 07/05/2022 19:41:39 07/06/19 23 07/05/2022 COMPR EHENS EDDIE METAB OLIC PANEL calcium 9.7 mg/dL 8.4-10 .2 Not Available [facility] (Lab) [address] [place], [address], 07/05/2022 19:41:39 07/06/19 23 07/05/2022 COMPR EHENS EDDIE METAB OLIC PANEL total protein 7.3 g/dL 6.3-8. 2 Not Available [facility] (Lab) [address] [place], [address], 07/05/2022 19:41:39 07/06/19 23 07/05/2022 COMPR EHENS EDDIE METAB OLIC PANEL albumin 4.5 g/dL 3.0-4. 4 high Not Available [facility] (Lab) [address] [place], [address], 07/05/2022 19:41:39 07/06/19 23 07/05/2022 COMPR EHENS EDDIE METAB OLIC PANEL globulin 2.8 g/dL 2.6-4. 2 Not Available [facility] (Lab) [address] [place], [address], 07/05/2022 19:41:39 07/06/19 23 07/05/2022 COMPR EHENS EDDIE METAB OLIC PANEL A/G ratio 1.6 ratio 1.0-2. 0 Not Available [facility] (Lab) [address] [place], [address], 07/05/2022 19:41:39 07/06/19 23 07/05/2022 PSA SCREE N PSA medicare screen 4.38 NG/mL 0.00-4 .00 high Not Available [facility] (Lab) [address] [place], [address], 07/05/2022 19:49:27 05/18/19 23 05/18/2022 CT, neck, soft tissu e, w/ contr ast [facility] [address] [place] [address] Patien t Name: MARVIN MALDONADO Access ion #: [id number] Sex: M : 1945 5 Locati [...] ML Isovue 300. Page 1 of 3 [facility] Patien t Name: MARVIN MALDONADO Access ion #: [id number] Sex: M : 1945 5 Exam Date: 023 9:42 AM Exam Name: CT SOFT TISSUE NECK W Admitt ing Diagno sis(es ): FINDIN GS: Nasoph arynx: Unrema rkable Oropha rynx: Unrema rkable Retrop haryng eal soft tissue s: Unrema rkable Hypoph arynx: Unrema rkable includ ing the epiglo ttis Larynx : Unrema rkable Trache a: Increa sed anteri or cooper apprentice ior diamet er, so-christa led sabre trache [...] rally, see above. Page 2 of 3 [facility] Patien t Name: MARVIN MALDONADO Access ion #: [id number] Sex: M : 1945 5 Exam [...] 5:59 PM (CT) Page 3 of 3 [id number] [facility] (Imaging) [address] [place], [address], 05/23/2022 03:26:14 07/12/[address] 23 [address], lumba r spine , w/o contr ast [facility] [address] [place] [address] Patien t Name: MARVIN MALDONADO Access ion #: [id number] Sex: M : 1945 4 Locati on: RA2 Attend ing Physic luis: ROSSI NOLASCO Orderi Physic luis: ROSSI NOLASCO Exam Date: 8:10 AM Exam Name: CT L SPINE WO Admitt ing Diagno sis(es ): RADIOL OGY REPORT - FINAL EXAM: CT L SPINE WO HISTOR Y: Chroni c lower back pain histor y of [place] ma COMPAR EUGENE: [facility] TECHNI QUE: TECHNI QUE: 1 mm [...] on techni que. Page 1 of 3 [facility] Patien t Name: MARVIN MALDONADO Access ion #: [id number] Sex: M : 1945 4 Exam [...] prefor aminal stenos is is noted. 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 L5-S1: A degene rative bulgin g annulu s is noted with cooper apprentice ior osteop hyte format ion result ing [...] 9:36 AM (CT) Page 3 of 3 [facility] (Imaging) [address] [place], [address], 07/19/2022 09:02:49 11/09/19 23 XR, chest [facility] [address], [place] [address] [phone] Patien t Name: MARVIN MALDONADO Access ion #: [id number] Sex: M : 1945 7 Dictat ed By: Nicho Jackson Attend ing Physic luis: ROSSI NOLASCO Physic luis: ROSSI NOLASCO Exam Date: 2022 [...] at 2022 16:17: 48 PM Page 1 [facility] (Imaging) [address] [place], [address], 12/13/2022 12:23:25 11/09/19 23 XR, ribs, unila teral , 3 or more view [facility] [address] [place] [address] Patien t Name: MARVIN MALDONADO ion #: [id number] Sex: M : 1945 7 Dictat ed By: Nicho Jackson Attend ing Physic luis: ROSSI NOLASCO Physic luis: ROSSI NOLASCO Exam Date: 2022 [...] at 2022 17:20: 50 PM Page 1 [facility] (Imaging) [address] [place], [address], 12/13/2022 12:23:19 Result Notes Documentation Provider Name and Address Organization Details Recorded Time Ct, Neck, Soft Tissue, W/ Contrast : [facility] [address] [place] [address] Patient Name: MARVIN MALDONADO Sex: M : 1945 Location: [facility] Attending Physician: KELTON NOLASCO Ordering Physician: KELTON NOLASCO Exam Date: 05/18/2022 9:42 AM Exam Name: CT SOFT TISSUE NECK W Admitting Diagnosis(es): RADIOLOGY REPORT - FINAL EXAM: CT SOFT TISSUE NECK W HISTORY: mass rt parotid gland COMPARISON: None. TECHNIQUE: Helical CT images of the neck were performed with intravenous contrast. Sagittal and coronal reformatted images were obtained. This CT exam was performed using one or more of the following dose reduction techniques: Automated exposure control, adjustment of the mA and/or kV according to patient size, or use of iterative reconstruction technique. A marker was positioned over the palpable area on the right. Dose: 100 ML Isovue 300. Page 1 of 3 [facility] Patient Name: MARVIN MALDONADO Sex: M : 1945 Exam Date: 05/18/2022 9:42 AM Exam Name: CT SOFT TISSUE NECK W Admitting Diagnosis(es): FINDINGS: Nasopharynx: Unremarkable Oropharynx: Unremarkable Retropharyngeal soft tissues: Unremarkable Hypopharynx: Unremarkable including the epiglottis Larynx: Unremarkable Trachea: Increased anterior posterior diameter, so-called sabre trachea, consistent with emphysematous residuals. Lymph nodes: Small inflammatory size lymph nodes Soft tissues: The palpable abnormality correlates with an otherwise normal appearing superficial portion of the left parotid gland. Vascular: Unremarkable Sinuses: Aerated Osseous: Multilevel degenerative changes, no acute process Thyroid: No mass Parotid glands: Symmetric bilaterally, see above. Page 2 of 3 [facility] Patient Name: MARVIN MALDONADO Sex: M : 1945 Exam Date: 05/18/2022 9:42 AM Exam Name: CT SOFT TISSUE NECK W Admitting Diagnosis(es): Submandibular glands: Unremarkable bilaterally. Lungs: Aerated as visualized IMPRESSION: See above. Created and electronically signed by: John Carpenter MD Signed Date: 05/18/2022 5:59 PM (CT) Dictated by: John Carpenter MD (CT) (CT) Page 3 of 3 Not Available [facility] 05/23/2022 03:26:17 Ct, Lumbar Spine, W/o Contrast : [address] [address] Patient Name: MARVIN MALDONADO Sex: M : 1945 Location: [facility] Attending Physician: KELTON NOLASCO Ordering Physician: KELTON NOLASCO Exam Date: 07/11/2022 8:10 AM Exam Name: CT L SPINE WO Admitting Diagnosis(es): RADIOLOGY REPORT - FINAL EXAM: CT L SPINE WO HISTORY: Chronic lower back pain history of melanoma COMPARISON: Lumbar spine radiographic examination, 04/04/2018 TECHNIQUE: TECHNIQUE: 1 mm images are obtained of the lumbar spine. Images are obtained without intravenous contrast, reviewed in the coronal, sagittal, and axial planes, with bone window settings. This CT exam was performed using one or more of the following dose reduction techniques: Automated exposure control, adjustment of the mA and/or kV according to patient size, or use of iterative reconstruction technique. Page 1 of 3 [facility] Patient Name: MARVIN MALDONADO Sex: M : 1945 Exam Date: 07/11/2022 8:10 AM Exam Name: CT L SPINE WO Admitting Diagnosis(es): FINDINGS: Bones: No fracture or destructive process. Disc spaces: T12-L1: Degenerative etiology 2 mm retrolisthesis of T12 relative to L1 resulting in moderate central spinal stenosis. No destructive process. Neural foraminal stenosis, mild is noted bilaterally. Degenerative desiccation hypertrophic disc space changes noted. Bilateral preforaminal stenosis is noted. L1-2: Significant loss of intervertebral disc space height noted with 4 mm degenerative etiology retrolisthesis of L1 relative to L2 resulting in moderate central spinal stenosis.. Severe right and moderate left neural foraminal stenosis is noted. Bilateral preforaminal stenosis is noted. L2-3: Posterior osteophyte formation a bulging degenerate annulus results in moderate central spinal stenosis and right moderate neural foraminal stenosis. Bilateral preforaminal stenosis is noted. L3-4: Degenerative, hypertrophic changes are present with facet hypertrophy resulting in moderate to severe central spinal stenosis, severe left and mild right preforaminal stenosis and [id number] bilateral neural foraminal stenosis. L4-5: Bilateral facet hypertrophic changes and a bulging degenerative annulus are resulting in moderate to severe central spinal stenosis, severe bilateral preforaminal stenosis and with facet hypertrophic changes, severe right and Page 2 of 3 [facility] Patient Name: MARVIN MALDONADO Sex: M : 1945 Exam Date: 07/11/2022 8:10 AM Exam Name: CT L SPINE WO Admitting Diagnosis(es): moderate to severe left neural foraminal stenosis. L5-S1: A degenerative bulging annulus is noted with posterior osteophyte formation resulting in moderate to severe central spinal stenosis, severe bilateral preforaminal stenosis and moderate to severe bilateral neural foraminal stenosis. Vasculature: No aneurysm If clinical symptoms persist, then MRI is recommended for further evaluation. IMPRESSION: 1. See above. Created and electronically signed by: John Carpenter MD Signed Date: 07/11/2022 9:36 AM (CT) Dictated by: John Carpenter MD (CT) (CT) Page 3 of 3 [place], [place] [facility] 07/19/2022 09:02:49 Xr, Chest : [address] [address] Patient Name: MARVIN MALDONADO Sex: M : 1945 Dictated By: Nicho Jackson Attending Physician: KELTON NOLASCO Ordering Physician: KELTON NOLASCO Exam Date: 11/08/2022 15:35 PM Exam Name: XR CHEST 2V Admitting Diagnosis(es): EXAM: XR CHEST 2V INDICATION: 77 years old Male COMPARISON: None. FINDINGS: The cardiac silhouette is normal. There is no pulmonary edema. The lungs are clear. Cardiac pacemaker is noted. There is no pneumonia. There is no pneumothorax. There is no abnormal foreign body. IMPRESSION: There is no acute abnormality. Page 1 [place] [facility] [place] [facility] 12/13/2022 12:23:25 Xr, Ribs, Unilateral, 3 Or More View : [address] [address] Patient Name: MARVIN MALDONADO Sex: M : 1945 Dictated By: Nicho Jackson Attending Physician: KELTON NOLASCO Ordering Physician: KELTON NOLASCO Exam Date: 11/08/2022 15:35 PM Exam Name: XR RIBS LT 2V Admitting Diagnosis(es): Clinical Indication: Rib pain Comparison: None FINDINGS: Left Rib Series: The AP and oblique views of the ribs show no definite rib fractures. The costovertebral junctions are unremarkable. There are no associated pleural effusions or pneumothorax. There are no underlying pulmonary contusions noted. If there is further concern, followup radiographs or bone scan may be performed for complete assessment. IMPRESSION: No acute rib fractures. SL: [id number] Page 1 CASIE Anna, MELISSA - S [place] [facility] 12/13/2022 12:23:19 Problems Name Problem SNOMED Code Status Onset Date Resolution Date Notes Provider Name and Address Organization Details Recorded Time Pain in lower limb 62371757 Active Not Available [facility] 3 08:09:24 Laceratio n of finger 922434501 Active Not Available [facility] 3 08:09:24 Bronchiti s 42061777 Active Not Available [facility] 3 08:09:24 Vitamin D deficienc y 43501252 Active Not Available [facility] 3 08:09:24 Sinusitis 65802892 Active Not Available [facility] 3 08:09:24 Pain of shoulder region 10089025 Active Not Available [facility] 3 08:09:24 Atrial fibrillat ion 11223238 Active Not Available [facility] 3 08:09:24 Fatigue 46379155 Active Not Available [facility] 3 08:09:24 Pain in limb 63460825 Active Not Available [facility] 3 08:09:24 Gout 10938416 Completed 201604/15/2016 Not Available [facility] 3 03:16:09 Dyslipide haydee 171717041 Active 2017 Not Available [facility] 3 08:09:24 Gout 31025381 Active 2017 Not Available [facility] 3 08:09:24 Helm's neuroma of right foot 21354754603 9108 Active 2020 Not Available [facility] 3 08:09:24 Helm's neuroma of left foot 97231169042 9105 Active 2020 Not Available [facility] 3 08:09:24 Acquired right hallux rigidus 43416462538 4100 Active 2020 Not Available [facility] 3 08:09:24 Foot pain 99153279 Active 2020 Not Available [facility] 3 08:09:24 Mass of right breast 80195507161 854100 Active 2021 Not Available [facility] 3 08:09:24 Low back pain 116542114 Active 2021 Not Available [facility] 3 08:09:24 Mammograp hy abnormal 116684396 Active 2021 Not Available [facility] 3 08:09:24 Breast lump 57996064 Active 2021 Not Available [facility] 3 08:09:24 Laborator y test result abnormal 950452091 Active 2021 Not Available [facility] 3 08:09:24 Liver enzymes level above reference range 115236393 Active 2021 Not Available [facility] 3 08:09:24 Pain in right foot 11122255469 9107 Active 2021 Not Available [facility] 3 08:09:24 Arthritis 8545654 Active 2021 Not Available [facility] 3 08:09:24 Foot pain 54543888 Active 2021 Not Available [facility] 3 08:09:24 COVID-19 616454461 Active 2021 Not Available [facility] 3 08:09:24 Jaw pain 114971081 Active 2022 Not Available [facility] 3 08:09:24 Pain of left knee joint 87935226113 4107 Active 2022 Not Available [facility] 3 08:09:24 Mass of right parotid gland 17865548900 912790 Active 2022 Not Available [facility] 3 08:09:24 Chest pain 85783794 Active 2022 Not Available [facility] 3 08:09:24 Notes:Some problems listed i n Document: #[id number] could not be added to this patient's chart. Please review this document and add these problems to the patient's chart manually as needed. Problem Notes None recorded. Procedures Surgical History Date Name Laterality Status Provider Name and Address Organization Details Recorded Time 07/06/19 23 Medicare Wellness CPT Code, subsequent completed Rosita Matthew RN [place] - [facility] 07/05/2022 14:27:30 06/28/19 21 Colonoscopy completed Not Available [facility] 05/24/19 23 03:08:08 01/23/20 18 Mohs surgery completed Not Available [facility] 023 03:08:08 10/03/19 17 Cardiac Cath completed Not Available [facility] 023 03:08:08 11/08/19 16 Colonoscopy completed Not Available [facility] 05/24/19 23 03:08:08 10/12/19 10 Colonoscopy completed Not Available [facility] 05/24/19 03:08:08 Orthopedic Procedure completed Not Available [facility] 05/23/2022 03:08:08 Orthopedic Procedure completed Not Available [facility] 05/23/2022 03:08:08 Pacemaker completed Not Available [place] [address] 05/23/2022 03:08:08 Orthopedic Procedure completed Not Available [facility] 05/23/2022 03:08:08 Imaging Results None recorded. Procedure Notes None recorded. Medical Equipment None Reported. Allergies Allergen ID Allergen Name Allergen Category Reaction Reaction Severity Criticality Documentation Date Start Date Code Code System Note Provider Name and Address Organization Details Recorded Time 5791 iodine medicatio n Not available Not available Not available 05/23/2022 5933 RxNorm throa t swell ing Not Available [facility] 03:25:44 Medications Name Sig Start Date Stop [...] Available Not Available Not Available amoxicillin 875 mg-colleen rankin clavulanate 125 mg tablet 08/27 completed Not [...] Available Not Available Vitals Date Recorded Body mass index (BMI) Body height Heart rate Body temperature Body weight Systolic And Diastolic Provider Name and Address Organization Details Last Updated DateTime 3 30.7 kg/m2 185.42 cm 60 /min 98.5 [degF] 668349. 02 g 122/74 mm[Hg] Not Available [facility] 3 03:12:39 Date Recorded Body mass index (BMI) Body height Heart rate Body temperature Body weight Systolic And Diastolic Provider Name and Address Organization Details Last Updated DateTime 3 29.6 kg/m2 185.42 cm 72 /min 97.7 [degF] 473458. 69 g 126/76 mm[Hg] Not Available [facility] 3 03:12:39 Date Recorded Pain severity - 0-10 verbal numeric rating [Score] - Reported Provider Name and Address Organization Details Last Updated DateTime 07/05/2022 7 Rosita Matthew RN [facility] 07/05/2022 14:27:46 Date Recorded Body height Body mass index (BMI) Body weight Body temperature Heart rate Systolic And Diastolic Provider Name and Address Organization Details Last Updated DateTime 3 185.42 cm 28.6 kg/m2 53198.5 4 g 97.7 [degF] 72 /min 132/80 mm[Hg] CASIE Hopper [facility] 3 14:17:42 Date Recorded Body height Body mass index (BMI) Body weight Body temperature Systolic And Diastolic Provider Name and Address Organization Details Last Updated DateTime 11/01/2022 185.42 cm 28.4 kg/m2 59708.3 6 g 98 [degF] 122/80 mm[Hg] Coreen Pena RN [facility] 3 14:10:23 Date Recorded Body height Body mass index (BMI) Body weight Body temperature Heart rate Systolic And Diastolic Provider Name and Address Organization Details Last Updated DateTime 3 185.42 cm 28.4 kg/m2 39016.3 6 g 98 [degF] 83 /min 134/70 mm[Hg] Coreen harvey RN [facility] 3 14:53:25 Social History Question Answer Notes LastModified by Organizat ion Details LastModified Time Tobacco Smoking Status Never Smoker Not Available [facility] 05/23/2022 02:54:48 Do You Have An Advance Directive? Yes MIGRATION.47094 05012 Information not available 05/23/2022 Are You Blind Or Do You Have Difficulty Seeing? Yes Wears Glasses Information not available 11/01/2022 What Is Your Level Of Caffeine Consumption? Moderate MIGRATION.38592 98317 Information not available 05/23/2022 How Much Tobacco Do You Chew? None MIGRATION.85343 27187 Information not available 05/23/2022 In The 14 Days Before Symptom Onset, Have You Had Close Contact With A Laboratory-confi rmed COVID-19 While That Case Was Ill? No MIGRATION.69040 27581 Information not available 05/23/2022 In The 14 Days Before Symptom Onset, Have You Had Close Contact With A Person Who Is Under Investigation For COVID-19 While That Person Was Ill? No MIGRATION.77810 34938 Information not available 05/23/2022 Are You Deaf Or Do You Have Serious Difficulty Hearing? Yes Wears Hearing Aids MIGRATION.08761 37546 Information not available 05/23/2022 What Type Of Diet Are You Following? REGULAR MIGRATION.06770 13841 Information not available 05/23/2022 Which Illicit Or Recreational Drugs Have You Used? None MIGRATION.35573 70220 Information not available 05/23/2022 What Is The Highest Grade Or Level Of School You Have Completed Or The Highest Degree You Have Received? FY38600-5 MIGRATION.24738 98029 Information not available 05/23/2022 Have There Been Any Changes To Your Family Or Social Situation? No MIGRATION.43298 01729 Information not available 05/23/2022 What Is The Fluoride Status Of Your Home? Unknown MIGRATION.32436 78987 Information not available 05/23/2022 Do You Use Insect Repellent Routinely? Yes MIGRATION.09950 05517 Information not available 05/23/2022 Where Do You Live? [facility] MIGRATION.97586 85627 Information not available 05/23/2022 Do You Have A Medical Power Of Inflated Pad Buffer? Yes MIGRATION.69490 73493 Information not available 05/23/2022 What Was The Date Of Your Most Recent Tobacco Screening? 11/08/2022 Information not available 11/08/2022 Do You Have Any Pets? No MIGRATION.04942 91635 Information not available 05/23/2022 What Is Your Relationship Status? MIGRATION.93657 75828 Information not available 05/23/2022 Do You Use Your Seat Belt Or Car Seat Routinely? Yes MIGRATION.47330 75726 Information not available 05/23/2022 Do You Have Smoke And Carbon Monoxide Detectors In Your Home? Yes MIGRATION.81850 05674 Information not available 05/23/2022 Are You Passively Exposed To Smoke? No MIGRATION.02606 77027 Information not available 05/23/2022 Are There Any Smokers In Your House? No MIGRATION.25890 88404 Information not available 05/23/2022 How Much Tobacco Do You Smoke? No MIGRATION.96893 78025 Information not available 05/23/2022 What Types Of Sporting Activities Do You Participate In? None MIGRATION.04726 23944 Information not available 05/23/2022 Do You Use Sunscreen Routinely? Yes MIGRATION.68105 61515 Information not available 05/23/2022 Has Tobacco Cessation Counseling Been Provided? No Not Needed-nev er Smoked MIGRATION.95696 75185 Information not available 05/23/2022 How Many Years Have You Smoked Tobacco? 0 MIGRATION.47529 77326 Information not available 05/23/2022 Have You Recently Traveled Abroad? No MIGRATION.85418 30443 Information not available 05/23/2022 Do You Have Difficulty Walking Or Climbing Stairs? No MIGRATION.04001 50806 Information not available 05/23/2022 Do You Have Any Dietary Restrictions? No MIGRATION.28318 79807 Information not available 05/23/2022 Sex: Male Functional Status Question Answer Note LastModified by [employer] ion Details LastModified Time Do you or have you ever used smokeless tobacco? Never used smokeless tobacco MIGRATION.392119 4182 Information not available 05/23/2022 Are you currently employed? No Information not available 11/01/2022 Do you have transportation difficulties? No MIGRATION.088474 5479 Information not available 05/23/2022 Are you able to care for yourself independently? Yes MIGRATION.929160 5878 Information not available 05/23/2022 Do you have difficulty dressing, bathing, grooming, or toileting? No MIGRATION.858788 5831 Information not available 05/23/2022 Do you or have you ever used e-cigarettes or vape? Never used electronic cigarettes MIGRATION.682950 7555 Information not available 05/23/2022 What is your exercise level? Heavy MIGRATION.800043 3450 Information not available 05/23/2022 Do you use any illicit or recreational drugs? No MIGRATION.640893 1422 Information not available 05/23/2022 Do you or have you ever used any other forms of tobacco or nicotine? No MIGRATION.363240 2370 Information not available 05/23/2022 What is your level of alcohol consumption? None MIGRATION.277313 0946 Information not available 05/23/2022 Are you able to walk independently without assistance or assistive devices? YESWOREST MIGRATION.988439 9805 Information not available 05/23/2022 Do you have difficulty doing errands alone? No MIGRATION.070529 6398 Information not available 05/23/2022 What is your occupation? retired MIGRATION.525722 9127 Information not available 05/23/2022 Mental Status Question Answer Note LastModified by Organizat ion Details LastModified Time Do you feel stressed (tense, restless, nervous, or anxious, or unable to sleep at night)? EB5749-3 MIGRATION.84414486 26 Information not available 05/23/2022 Do you have difficulty concentrating, remembering or making decisions? No MIGRATION.85582304 26 Information not available 05/23/2022 Family History Relationship Description Onset Age of this Age Resolved Age Notes LastModified by Organization Details LastModified Time Mother Cerebrovascu lar accident MIGRATION.193 [id number] Not available 05/23/2022 03:08:13 Father Malignant neoplastic disease MIGRATION.300 [id number] Not available 05/23/2022 03:08:13 Medical History Condition Response NERVE DISEASE N BLINDNESS N RHEUMATIC FEVER N KIDNEY STONES N BLADDER PROBLEMS N OTHER # 1 N POLIO N LUNG DISEASE/DISORDER N RADIATION / CHEMOTHERAPY N COPD N Other # 2 N BLOOD DISEASES N SURGERY N EAR OR HEARING PROBLEMS N MUMPS N DEPRESSION (INCLUDING POST ) N BOWEL PROBLEMS N STROKE/TIA N ULCERS N BENIGN PROSTATIC HYPERPLASIA N MEASLES N MYOCARDIAL INFARCTION N OBESITY N GERD/NAUSEA N ANEURYSM N URINARY/BLADDER/KIDNEY PROBLEMS N INPATIENT PSYCH CARE N CORONARY ARTERY DISEASE (CAD) N ADDICTION CONCERNS N Impotence N ENDOMETRIOSIS N USE OF BLOOD THINNERS Y SKIN [...] APNEA N CHICKENPOX N INFECTIOUS DISEASE N PROSTATE N HEART ARRHYTHMIA N INSOMNIA N HIGH CHOLESTEROL / HYPERLIPIDEMIA Y EYE PROBLEMS N HYPERTHYROIDISM N NEUROLOGICAL PROBLEMS N EDEMA N CHRONIC PAIN SYNDROME N HYPOTHYROIDISM N CAROTID BLOCKAGE N CONSTIPATION N BACK / NECK PROBLEMS N HAVE YOU BEEN HOSPITALIZED OR SEEN IN [facility] IN THE PAST YEAR ? N ATHEROSCLEROSIS N BREAST PROBLEMS N DIALYSIS N ECZEMA N OSTEOPOROSIS N ARTHRITIS N APPENDICITIS N DIABETES, TYPE N BAD TEETH N ENT N HEARTBURN / REFLUX N AUTISM SPECTRUM DISORDER (ASD) N HEPATITIS / LIVER DISEASE N PULMONARY DISEASE N GOUT Y SLEEP DISORDER N ALZHEIMER'S DISEASE N Brain Problems N DEMENTIA N HERPES N SEIZURES/EPILEPSY N HEADACHES/MIGRAINES N VASCULAR DISEASE N PACEMAKER N Blood Disorder N DIZZINESS N HEART DISEASE/HEART PROBLEMS N KIDNEY DISEASE N MULTIPLE SCLEROSIS N CANCER: SPECIFY Y CARDIAC ARRHYTHMIA N ANESTHESIA COMPLICATIONS N ATRIAL FIBRILLATION Y Gall Stones N PULMONARY EMBOLISM N AUTOIMMUNE DISEASE N Immunizations Vaccine Type Date Status Note Provider Nam e and Address Organization Details Recorded Time COVID-19, mRNA, LNP-S, PF, 30 mcg/0.3 mL dose 1 completed Not Available [facility] 11/09/2022 08:09:25 COVID-19, mRNA, LNP-S, PF, 30 mcg/0.3 mL dose 1 completed Not Available [facility] 11/09/2022 08:09:25 COVID-19, mRNA, LNP-S, PF, 30 mcg/0.3 mL dose 1 completed Not Available [facility] 11/09/2022 08:09:25 influenza, unspecified formulation 5 completed Not Available [facility] 11/09/2022 08:09:25 pneumococcal polysaccharide PPV23 4 completed Not Available [facility] 11/09/2022 08:09:25 Influenza, high-dose, quadrivalent, PF 1 completed Not Available [facility] 11/09/2022 08:09:25 Influenza, split virus, quadrivalent, PF 9 completed Not Available [facility] 11/09/2022 08:09:25 Influenza, high-dose, trivalent, PF 8 completed Not Available [facility] 11/09/2022 08:09:25 Influenza, high-dose, trivalent, PF 6 completed Not Available [facility] 11/09/2022 08:09:25 Influenza, high-dose, trivalent, PF 7 completed Not Available [facility] 11/09/2022 08:09:25 tetanus toxoid, adsorbed 4 completed Not Available [facility] 11/09/2022 08:09:25 Pneumococcal conjugate PCV 13 5 completed Not Available [facility] 11/09/2022 08:09:25 Past Encounters Encounter ID Performer Location Encounter Start Date Encounter Closed Date Diagnosis/Indication Diagnosis SNOMED-CT Code Diagnosis ICD10 Code Diagnosis IMO Codes Diagnosis Note [id number] Kelton Nolasco MD [facility] [address] [place] [address] y , [place] [address] 06/14/2020 00:00:00 06/14/2020 22:47:02 [id number] [facility] [place] [address] [facility] [address] [place] [address] 10/10/2020 00:00:00 10/11/2020 09:14:43 [id number] Kelton Nolasco MD [facility] Internal Med [address] y , [place] [address] 12/20/2020 00:00:00 12/20/2020 22:34:53 [id number] [facility] [place] [address] [facility] [address] [place] [address] 01/02/2021 00:00:00 01/03/2021 13:20:35 [id number] Kelton Nolasco MD [facility] Internal Med [address] y , [place] [address] 06/08/2021 00:00:00 06/25/2021 23:10:21 [id number] Kelton Nolasco MD [facility] Internal Med [facility] [address] [place] [address] y , [place] [address] 11/30/2021 00:00:00 12/10/2021 11:25:44 [id number] Kelton Nolasco MD [facility] Internal Med [address] [address] 02/14/2022 00:00:00 02/15/2022 13:03:59 [id number] Kelton Nolasco MD [facility] Internal [facility] [place] [address] [place] [address] [place] [address] 03/06/2022 00:00:00 03/16/2022 22:10:43 [id number] Kelton Nolasco MD [facility] Internal Med [facility] [address] [address] 04/16/2022 00:00:00 04/16/2022 21:26:17 [id number] Kelton Nolasco MD [facility] Internal Med [facility] [address] [address] 04/20/2022 00:00:00 04/20/2022 21:26:55 [id number] Kelton Nolasco MD [facility] Internal Med [place] [address] [place] [address] [place] [address] 05/10/2022 00:00:00 05/12/2022 23:09:16 [id number] Kelton Nolasco MD [facility] Internal Med [place] [address] [place] [address] [place] [address] 07/05/2022 14:07:25 07/05/2022 14:47:13 Adult health examination 742781509 Z00.00 Screening for disorder 161838485 Z13.9 Low back pain 196661140 M54.50 Dyslipidemia 573042613 E 78.5 Screening for malignant neoplasm of prostate 458682607 Z12.5 Long-term drug therapy 477525904 Z79.899 Gout 81979845 M10.9 [id number] Kelton Nolasco MD [facility] Internal Med [place] [address] [place] [address] [place] [address] 11/01/2022 13:57:00 11/01/2022 14:21:19 Dyslipidemia 406531124 E78.5 Gout 89409203 M10.9 Atrial fibrillation 4943 6004 I48.91 [id number] Kelton Nolasco MD [facility] [place] [address] , [place] [address] 11/08/2022 14:44:56 11/08/2022 15:53:29 Chest pain 25821516 R07.9 Health Concerns Section Related Observation LastModified by Organization Detai ls LastModified Time None Recorded Concern Status LastModified by Organization Details LastModified Time None Recorded Advance Directives Directive Y: Payers Insurance Date Sequence Insurance Name Policy Number Policy Horta Covered Member ID Horta Member ID Guarantor Name 03/04/2023 1 [facility] (MEDICARE REPLACEMENT/A DVANTAGE - PPO) [id number] Marvin Maldonado [id number] Marvin Maldonado Notes Date Note Type Note Provider Name and Address Organization Details Recorded Time 07/05/2022 text/html Longstanding low back pain no betterDyslipidemia does try to follow dietGout no red hot swollen jointsAtrial fibrillation appears to be stableAnnual wellness completed Kelton Nolasco MD [address], [place], [address], [employer] [facility] 07/14/2022 22:07:05 11/01/2022 text/html AFib doing fine bruises with the Xarelto. Dyslipidemia tries to follow low-fat dieting rosuvastatin no side effects. Gout no red hot swollen joints. Chronic low back pain he is seeing pain management get epidurals. Elevated PSA he does see Urology and he is following up with them Kelton Nolasco MD [address], [place], [address], [employer] [facility] [employer] 11/01/2022 14:41:26 11/08/2022 text/html Ground level fall mechanical pain left side chest no dizziness neck pain was not knocked out no shortness of breaths Kelton Nolasco MD [address], [place], [address], [employer] [facility] [employer] 11/08/2022 22:51:21
== END 2025-02-04 08:55 | disposition home or self-care (01) ==
PROVIDERS: PCP Internal Medicine; Visit Provider Nurse Practitioner Family
DX: M16.11 Unilateral primary osteoarthritis, right hip (principal)
CPT/HCPCS: 20610; 77002; J1010; Q9966